=== PATIENT | male | born 1955 | race African-American/Black ===

== ENCOUNTER 2017-09-17 13:09 | Inpatient (IN) | payer SELFPAY ==
[2017-09-17] MEDS ORDERED: ONDANSETRON PF 4 MG/2 ML VIAL. IV (13:30)
[2017-09-17] MEDS: hydrALAZINE 20 MG/ML VIAL. IVP ×2 (13:51→17:15)
[2017-09-17] MEDS: NITROGLYCERIN OINT 1 GM PACKET. TP ×2 (14:00→20:51)
[2017-09-17] MEDS ORDERED: cefTRIAXone IV Push 1 GM VIAL. IVP (14:00)
[2017-09-17] MEDS ORDERED: LIDOCAINE 2% 20 ML VIAL. (14:37)
[2017-09-17] MEDS ORDERED: IODIXANOL 320 MG/ML 100 ML VIAL. (14:37)
[2017-09-17] MEDS ORDERED: fentaNYL PF VIAL 100 MCG/2 ML VIAL (14:51)
[2017-09-17] MEDS ORDERED: MIDAZOLAM HCL/PF 2 MG/2 ML VIAL. (14:51)
[2017-09-17] MEDS ORDERED: VERAPAMIL 5 MG/2 ML VIAL. (14:51)
[2017-09-17] MEDS ORDERED: HEPARIN for IV BOLUS 10,000 UNIT/10 ML VIAL. (14:51)
[2017-09-17] MEDS ORDERED: NITROGLYCERIN 200 MCG/2 ML SYRINGE FOR CATH/VASC LAB. (14:53)
[2017-09-17] MEDS ORDERED: CONTRAST GIVEN MC (15:15)
[2017-09-17] MEDS: MIDAZOLAM HCL/PF 2 MG/2 ML VIAL. IV (15:15)
[2017-09-17] MEDS: fentaNYL PF VIAL 100 MCG/2 ML VIAL IV (15:24)
[2017-09-17] MEDS: IODIXANOL 320 MG/ML 100 ML VIAL. IART (15:25)
[2017-09-17] MEDS: VERAPAMIL 5 MG/2 ML VIAL. IART (15:25)
[2017-09-17] MEDS: HEPARIN for IV BOLUS 10,000 UNIT/10 ML VIAL. IART (15:26)
[2017-09-17] MEDS: NITROGLYCERIN 200 MCG/2 ML SYRINGE FOR CATH/VASC LAB. IART (15:27)
[2017-09-17] MEDS: IPRATRPIUM/ALBUTEROL 0.5/2.5MG 3 ML NEBU. NEB ×2 (15:37→19:25)
[2017-09-17] MEDS: HYDROcodone/APAP 5/325MG 1 TAB TABLET PO (20:50)
[2017-09-17] MEDS: METOPROLOL TART IMMED RELEASE 25 MG TABLET. PO (20:50)
[2017-09-17] MEDS: ATORVASTATIN CALCIUM 40 MG TABLET. PO (20:50)
[2017-09-17] MEDS: cefTRIAXone IV Push 1 GM VIAL. IVP (20:50)
[2017-09-17] MEDS: LACTOBACILLUS RHAMNOSUS GG 1 CAPSULE. PO (20:50)
[2017-09-18] MEDS: hydrALAZINE 20 MG/ML VIAL. IVP (00:26)
[2017-09-18] MEDS: NITROGLYCERIN OINT 1 GM PACKET. TP ×2 (06:00→14:00)
[2017-09-18] MEDS: IPRATRPIUM/ALBUTEROL 0.5/2.5MG 3 ML NEBU. NEB ×3 (06:07→15:42)
[2017-09-18] MEDS: ASPIRIN CHEWABLE 81 MG TABLET. PO (09:04)
[2017-09-18] MEDS: CARVEDILOL 12.5 MG TABLET. PO ×2 (09:05→17:40)
[2017-09-18] MEDS: hydrALAZINE 25 MG TABLET PO (09:05)
[2017-09-18] MEDS: LACTOBACILLUS RHAMNOSUS GG 1 CAPSULE. PO (09:06)
== END 2017-09-18 19:07 | disposition home or self-care (01) | DRG 282 ==
LOC: 2 NORTH 13:09
PROC: 4A023N7 Measurement of Cardiac Sampling and Pressure, Left Heart, Percutaneous Approach (ICD-10-PCS; principal; 2017-09-17)
PROC: B2151ZZ Fluoroscopy of Left Heart using Low Osmolar Contrast (ICD-10-PCS; 2017-09-17)
PROC: B2111ZZ Fluoroscopy of Multiple Coronary Arteries using Low Osmolar Contrast (ICD-10-PCS; 2017-09-17)
DX: I21.4 Non-ST elevation (NSTEMI) myocardial infarction (principal); I11.9 Hypertensive heart disease without heart failure; E78.5 Hyperlipidemia, unspecified; Z82.49 Family history of ischemic heart disease and other diseases of the circulatory system; Z87.891 Personal history of nicotine dependence; Z83.3 Family history of diabetes mellitus; Z87.81 Personal history of (healed) traumatic fracture
CPT/HCPCS: 93458; 94640; 99152; C1769; C1892; J0360; J0696; J1644; J2250; J3010; J3490; J7620

== ENCOUNTER 2019-06-08 18:31 | Emergency (ER) | payer MEDICARE ==
[~2019-06-08] VITALS: Ht 165.1 cm; Wt 57.0 kg
[~2019-06-08 18:31] MED LIST: ASPI-630 PO; ATOR40TA59 PO; ATROPINE 1 MG/10 ML DISP.SYRINGE. ONE; CALCIUM CHLORIDE 1,000 MG/10 ML DISP.SYRIN ONE; CARV12.5 PO; CLOP75TA PO; EPINEPHrine SYRINGE 1 MG/10 ML SYRINGE ONE; FURO-69 PO; FURO20TA3 PO; HYDR-2868 PO; ISOS30TA4 PO
--- NOTE | 2019-06-08 19:10 | PHYS DOC ---
Past Medical History Past Medical History: CHF, DVT, Hypertension, ND, Other Additional Past Medical Histor: HEART ATTACK Past Surgical History: No Surgical History Additional Past Surgical Histo: bilat lower ext surgery, suprapubic catheter Alcohol Use: Occasionally Drug Use: None Adult General Chief Complaint Chief Complaint: ALTERED MENTAL STATUS HPI HPI Patient is a 64 year old Turkish Turkish male with history of CHF, CAD, ND, with B femoral popliteal performed at this past week with discharge home from earlier today who presents with initial presentation of decreased LOC with a GCS of 3 with respiratory distress. Patient notation improved with 15 L oxygen nonrebreather. EMS was unable to obtain an initial SPO2. GCS of 15 on ED arrival with moderate to severe respiratory distress. EMS unable to establish an IV. Patient agitated and swinging at staff requiring code clayton measures. [] Review of Systems Review of Systems Unable to obtain due to patient acuity All other systems were reviewed and found to be within normal limits, except as documented in this note. Current Medications Current Medications Current Medications Medications (Trade) Dose Ordered Sig/Mandie Start Time Stop Time Status Last Admin Dose Admin Ketamine HCl (Ketamine) 500 mg STK-MED ONCE 06/08/19 19:27 06/08/19 19:27 DC Norepinephrine Bitartrate 8 mg/ Dextrose 258 ml @ 11.03 mls/ hr CONT PRN 06/08/19 19:30 Propofol 50 ml @ 0 mls/hr 1X ONCE 06/08/19 19:15 06/08/19 19:16 DC Rocuronium [place] (Zemuron) 50 mg STK-MED ONCE 06/08/19 19:27 06/08/19 19:28 DC Sodium Bicarbonate 50 meq/Sodium Chloride 1,050 ml @ 100 mls/hr [id number] 06/08/19 20:00 06/08/19 20:41 100 MLS/HR Sodium Chloride 1,000 ml @ 1,000 mls/hr 1X ONCE 06/08/19 20:00 06/08/19 20:59 DC Sodium Chloride (NORMAL SALINE FLUSH for STERILE FIELD) 10 ml STK-MED ONCE 06/08/19 19:24 06/08/19 19:24 DC Allergies Allergies Allergies Coded Allergies Type Severity Reaction Last Updated Verified No Known Drug Allergies 09/17/17 No Physical Exam Physical Exam Constitutional: Moderate to severe respiratory distress, agitated and cooperative with staff. [] HENT: Normocephalic, atraumatic, bilateral external ears normal, oropharynx moist, nose normal. [] Eyes: PERRLA, EOMI, conjunctiva normal. [] Neck: Normal range of motion, no tenderness, supple, bilateral jugular venous distention [] Cardiovascular: Regular rate and rhythm, murmur present, trace peripheral edema, bifemoral and bi-popliteal cutdown surgical wounds. Benny in place, wounds clean, dry and intact. [] Lungs & Thorax: Patient's labored, diminished breath sounds bilaterally with coarse rales throughout lung del angel, speaks in 5-7 word sentences. [] Abdomen: Bowel sounds normal, soft, no tenderness,. [] Skin: Appropriate forethnicity.. [] Back: No tenderness. [] Extremities: Neative Homans sign. [] Neurologic: Alert and oriented, normal motor function, normal sensory function, no focal deficits noted. [] Psychologic: Affect, anxious. [] Current Patient Data Vital Signs Vital Signs Date Time Temp Pulse Resp B/P (MAP) Pulse Ox O2 Delivery O2 Flow Rate FiO2 06/08/19 19:00 92 Ventilator 06/08/19 18:37 78 28 15.0 Lab Values Laboratory Tests Test 06/08/19 19:30 06/08/19 20:00 White Blood Count 10.3 x10^3/uL (4.0-11.0) Red Blood Count 3.64 x10^6/uL (4.30-5.70) L Hemoglobin 10.3 g/dL (13.0-17.5) L Hematocrit 31.6 % (39.0-53.0) L Mean Corpuscular Volume 87 fL (79-100) Mean Corpuscular Hemoglobin 28 pg (25-35) Mean Corpuscular Hemoglobin Concent 33 g/dL (31-37) Red Cell Distribution Width 15.7 % (11.5-14.5) H Platelet Count 400 x10^3/uL (140-400) Neutrophils (%) (Auto) 74 % (31-73) H Lymphocytes (%) (Auto) 18 % (24-48) L Monocytes (%) (Auto) 5 % (0-9) Eosinophils (%) (Auto) 1 % (0-3) Basophils (%) (Auto) 1 % (0-3) Neutrophils # (Auto) 7.6 x10^3/uL (1.8-7.7) Lymphocytes # (Auto) 1.9 x10^3/uL (1.0-4.8) Monocytes # (Auto) 0.6 x10^3/uL (0.0-1.1) Eosinophils # (Auto) 0.1 x10^3/uL (0.0-0.7) Basophils # (Auto) 0.1 x10^3/uL (0.0-0.2) Segmented Neutrophils % 71 % (35-66) H Band Neutrophils % 2 % (0-9) Lymphocytes % 15 % (24-48) L Atypical Lymphocytes % (Manual) 5 % (0-0) H Monocytes % 5 % (0-10) Eosinophils % 1 % (0-5) Metamyelocytes % 1 % (0-0) H Platelet Estimate Increased (ADEQUATE) Polychromasia Slight Anisocytosis Slight Tear Drop Cells Occ Prothrombin Time 25.1 SEC (11.7-14.0) H Prothrombin Time INR 2.3 (0.8-1.1) H Activated Partial Thromboplast Time 41 SEC (24-38) H Sodium Level 141 mmol/L (136-145) Potassium Level 5.0 mmol/L (3.5-5.1) Chloride Level 101 mmol/L (98-107) Carbon Dioxide Level 27 mmol/L (21-32) Anion Gap 13 (6-14) Blood Urea Nitrogen 46 mg/dL (8-26) H Creatinine 2.3 mg/dL (0.7-1.3) H Estimated GFR (Cockcroft-Gault) 34.6 BUN/Creatinine Ratio 20 (6-20) Glucose Level 230 mg/dL (70-99) H Lactic Acid Level 7.0 mmol/L (0.4-2.0) *H Calcium Level 11.9 mg/dL (8.5-10.1) H Total Bilirubin 0.6 mg/dL (0.2-1.0) Aspartate Amino Transferase (AST) 22 U/L (15-37) Alanine Aminotransferase (ALT) 21 U/L (16-63) Alkaline Phosphatase 91 U/L (46-116) Troponin I Quantitative 0.422 ng/mL (0.000-0.055) MA-Hcx-Y-Type Natriuretic Peptide 08867 pg/mL (0-124) H Total Protein 5.8 g/dL (6.4-8.2) L Albumin 2.3 g/dL (3.4-5.0) L Albumin/Globulin Ratio 0.7 (1.0-1.7) L O2 Saturation 99 % (92-99) Arterial Blood pH 7.37 (7.35-7.45) Arterial Blood pH (Temp corrected) 7.38 Arterial Blood pCO2 at Patient Temp 42 mmHg (35-46) Arterial Blood pCO2 (Temp correct) 40 mmHg Arterial Blood pO2 at Patient Temp 542 mmHg (65-108) H Arterial Blood pO2 (Temp corrected) 533 mmHg Arterial Blood HCO3 24 mmol/L (21-28) Arterial Blood Base Excess -2 mmol/L (-3-3) FiO2 100 Laboratory Tests 06/08/19 19:30 Laboratory Tests 06/08/19 19:30 EKG EKG [EKG: reviewed] Radiology/Procedures Radiology/Procedures [CXR: Cardiac macular with cardiopulmonary vascular congestion, no tracheal tube and central line in good position] Course & Med Decision Making Course & Med Decision Making Pertinent Labs and Imaging studies reviewed. (See chart for details) [Patient with apparent respiratory failure secondary to CHF who presents in repiratory failure on NRB mask, agitated and uncooperative with staff placing patient and staff members at health/safety risk. Patient given ketamine to facilitate ED management and subsequent intubation for acute respiratory failure. Approximately 10 minutes post-intubation noted to be in sinus bradycardia. IV atropine given. Patient noted to be hypoxic with O2 sats in the 70s with loss of pulses while at beside with PEA on the monitor. Patient received 3 rounds of chest compressions, 2 amps of epinephrine and 1 amp or bicarb and calcium prior return of spontaneous circulation. A left subclavian central line was placed manually on first attempt in a left radial arterial line was established for presser support. Patient placed on Levophed drip, bicarb drip and bolused of 2 liters of normal saline. Vital signs stabilized on fluids, pressers and ventilator. Case reviewed with Dr. Saravia on-call for cardiology who recommends transfer to [facility] should patient require mechanical assist blood pressure support. Patient accepted by Dr. Joe at [facility]. Family members updated. Patient remains in critical condition with stable vital signs on Vent. Disposition [facility] Critical care time 95 mins. Curtis Disclaimer Dragon Disclaimer This electronic medical record was generated, in whole or in part, using a voice recognition dictation system. Departure Departure Impression: Primary Impression: Acute respiratory failure with hypoxia Additional Impressions: Systolic CHF Cardiac arrest Disposition: [address] [facility] Condition: CRITICAL Referrals: JAVIER BARRAZA MD (PCP) Problem Qualifiers PEPPER DE LEON DO Jun 08, 2019 19:10
[2019-06-08] MEDS ORDERED: PROPOFOL 50 ML IV ONE (19:15)
[2019-06-08] MEDS ORDERED: PROPOFOL 100 ML IV PRN (19:15)
[2019-06-08] MEDS ORDERED: 0.9 % SOD CHL for STERILE FIELD 10 ML DISP.SYRIN. ONE (19:24)
[2019-06-08] MEDS ORDERED: KETAMINE HCL 500 MG/10 ML VIAL. ONE (19:27)
[2019-06-08] MEDS ORDERED: ROCURONIUM 50 MG/5 ML VIAL. ONE (19:27)
[2019-06-08] MEDS ORDERED: NOREPINEPHRINE VIAL 8 MG in IV DEXTROSE 5% 250 ML IV PRN (19:30)
[2019-06-08 19:41] LABS: BASO # 0.1 x10^3/uL (0.0-0.2); BASO % 1 % (0-3); EOS # 0.1 x10^3/uL (0.0-0.7); EOS % 1 % (0-3); HEMATOCRIT 31.6 % (39.0-53.0); HEMOGLOBIN 10.3 g/dL (13.0-17.5); LYMPH # 1.9 x10^3/uL (1.0-4.8); LYMPH % 18 % (24-48); MEAN CORPUSCULAR HEMOGLOBIN 28 pg (25-35); MEAN CORPUSCULAR HGB CONC 33 g/dL (31-37); MEAN CORPUSCULAR VOLUME 87 fL (79-100); MONO # 0.6 x10^3/uL (0.0-1.1); MONO % 5 % (0-9); NEUT # 7.6 x10^3/uL (1.8-7.7); NEUT % 74 % (31-73); PLATELET COUNT 400 x10^3/uL (140-400); RED BLOOD COUNT 3.64 x10^6/uL (4.30-5.70); RED CELL DISTRIBUTION WIDTH 15.7 % (11.5-14.5); WHITE BLOOD COUNT 10.3 x10^3/uL (4.0-11.0)
[2019-06-08 19:50] LABS: CALCIUM 11.9 mg/dL (8.5-10.1); CREATININE 2.3 mg/dL (0.7-1.3); GFR 34.6
[2019-06-08 19:51] LABS: PROTHROMBIN TIME PATIENT 25.1 SEC (11.7-14.0)
[2019-06-08 19:56] LABS: ALBUMIN 2.3 g/dL (3.4-5.0); ALBUMIN/GLOBULIN RATIO 0.7 (1.0-1.7); TOTAL BILIRUBIN 0.6 mg/dL (0.2-1.0); TOTAL PROTEIN 5.8 g/dL (6.4-8.2)
[2019-06-08] MEDS ORDERED: IV NORMAL SALINE 1000ML BAG 1,000 ML IV ONE (20:00)
[2019-06-08] MEDS ORDERED: SODIUM BICARBONATE VIAL 50 MEQ in IV 1/2 NORMAL SALINE 1,000 ML IV SCH (20:00)
--- NOTE | 2019-06-08 20:03 | HP ---
ADMIT DATE: CHIEF COMPLAINT: Respiratory failure, agitation and mental status change. HISTORY OF PRESENT ILLNESS: The patient is a pleasant 64-year-old male who presented to the ER today, extremely agitated. Apparently, he developed shortness of breath. He was weak. Someone called the ambulance, so he was brought in. He is very combative. He has a lot of wounds on his lower extremities. Apparently, he was at and had vascular bypass and had a thrombectomy there as well. We were concerned he could have had a pulmonary embolism. He is very combative here in the ER, he is currently being examined in room ER 1 with the ER physician present. We are going to go ahead and intubate the patient. PAST MEDICAL HISTORY: Peripheral vascular disease, recent bypass surgery, lower extremity thrombectomies, diabetes and hypertension. ALLERGIES: None. FAMILY HISTORY: Diabetes. SOCIAL HISTORY: I think he lives alone. No drinking, smoking or drugs I know of. MEDICATIONS: Reviewed, please refer to the MRAD. REVIEW OF SYSTEMS: Unable to obtain. The patient is too combative and unresponsive. PHYSICAL EXAMINATION: GENERAL: He is combative. We are trying to sedate him. He is yelling. HEART: Distant S1, S2. LUNGS: Diminished. ABDOMEN: Soft. Decreased bowel sounds. EXTREMITIES: He has got multiple old incisions on his legs that are healing. There is lot of peggy. There are at least 2 large incisions on both lower extremities. HEENT: He has got a suprapubic Castillo in place. GENITOURINARY: Genitalia appeared normal in structure. HEENT: He has slight JVD. HEART: Tachy, S1, S2. ASSESSMENT AND PLAN: Severe mental status change with hypoxia and tachycardia in a middle-aged male who had recent vascular bypass and thrombectomy. We were concerned he could have had a pulmonary embolism. It is going to be difficult to assess this as the patient is too combative. We are going to go ahead and intubate. We will need to get basic labs and hopefully to get a CAT scan or V/Q scan and consult Pulmonary Medicine. We will try to get his home meds going, IV fluids and sedation with propofol if possible. PROGNOSIS: Extremely guarded at best. TOTAL TIME: 32 minutes. TREMAYNE RÍOS DO DR: YULI/brittaney JOB#: [id number] / [id number]
[2019-06-08 20:09] LABS: BASE EXCESS ABG -2 mmol/L (-3-3); CORRECTED PCO2 ABG 40 mmHg; CORRECTED PH ABG 7.38; CORRECTED PO2 ABG 533 mmHg; HCO3 ABG 24 mmol/L (21-28); SAT O2 ABG 99 % (92-99)
[2019-06-08 20:10] LABS: FIO2 ABG 100; PCO2 ABG 42 mmHg (35-46); PO2 ABG 542 mmHg (65-108)
[2019-06-08 20:12] LABS: % ATYL 5 % (0-0); % BANDS 2 % (0-9); % EOS 1 % (0-5); % METAS 1 % (0-0); % MONOS 5 % (0-10)
[2019-06-08 20:13] LABS: % LYMPHS 15 % (24-48); % SEGS 71 % (35-66)
--- NOTE | 2019-06-08 20:14 | RAD ---
CHEST AP ONLY Clinical Indication: Line placement, tube placement, shortness of breath Comparison: 05/16/2023 . Findings: Portable supine frontal view of the chest was obtained. Tracheal tube terminates approximately 2.6 in number from the gary. Enteric tube terminates at the left upper quadrant. Left subclavian catheter terminates overlying the superior cavoatrial junction. The cardiomediastinal silhouette is normal. Lungs are clear. There is no pneumothorax although evaluation may be limited with the patient supine for this exam. No pleural effusion is appreciated. No acute bone abnormality. IMPRESSION: No acute cardiopulmonary process. Left subclavian catheter and tubes in place. Electronically signed by: Julián Quevedo MD (06/08/2019 8:12 PM) [facility]
[2019-06-08 20:15] LABS: ANISOCYTOSIS SLIGHT; PLT ESTIMATE INCREASED (ADEQUATE)
[2019-06-08 20:16] LABS: POLYCHROMASIA SLIGHT; TEAR DROP CELLS OCC
[2019-06-08 21:40] VITALS: BP 127/67
[2019-06-08] MEDS ORDERED: MIDAZOLAM HCL/PF 5 MG/5 ML VIAL. ONE (21:50)
[2019-06-09] MEDS ORDERED: MIDAZOLAM HCL/PF 5 MG/5 ML VIAL. NS ONE (02:00)
[2019-06-09] MEDS ORDERED: ATROPINE 0.5 MG/5 ML DISP.SYRINGE. IV ONE (02:00)
[2019-06-09] MEDS ORDERED: ROCURONIUM 100 MG/10 ML VIAL. IV ONE (02:15)
[2019-06-09] MEDS ORDERED: KETAMINE HCL 500 MG/10 ML VIAL. IV ONE (02:15)
[2019-06-09] MEDS ORDERED: PROPOFOL 10 MG/ML (20ML) VIAL. IV ONE ×2 (02:45)
--- NOTE | 2019-06-09 07:07 | EKG ---
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
== END 2019-06-09 01:23 | disposition short-term general hospital (02) ==
LOC: ER 18:31 → UNDOADMIN 20:15 → 1 WEST ICU 20:15 → ER 06-09 01:23
DX: I11.0 Hypertensive heart disease with heart failure (principal); I46.9 Cardiac arrest, cause unspecified; I50.20 Unspecified systolic (congestive) heart failure; J96.01 Acute respiratory failure with hypoxia; I25.2 Old myocardial infarction; Z86.718 Personal history of other venous thrombosis and embolism; Z98.890 Other specified postprocedural states
CPT/HCPCS: 36415; 36600; 71045; 80053; 82805; 83605; 83880; 84484; 85007; 85025; 85610; 85730; 87040; 93005; 94002; 96361; 96365; 96368; 96375; 99291; 99292; J0171; J0461; J2250; J2704; J3490; J7030

== ENCOUNTER 2019-06-22 17:23 | Inpatient (IN) | payer MEDICARE, OTHER ==
[~2019-06-22] VITALS: Ht 167.6 cm; Wt 63.4 kg
[2019-06-22] VITALS (12 sets, daily range): BP systolic 81–136; BP diastolic 50–82
[~2019-06-22 17:23] MED LIST changes: -ATROPINE 1 MG/10 ML DISP.SYRINGE. ONE; -CALCIUM CHLORIDE 1,000 MG/10 ML DISP.SYRIN ONE; -EPINEPHrine SYRINGE 1 MG/10 ML SYRINGE ONE
--- NOTE | 2019-06-22 18:17 | PDOC1 ---
History and Physical Date of Admission Date of Admission DATE: 06/22/19 TIME: 18:14 Identification/Chief Complaint Chief Complaint SEEN IN ICU [place] [facility] 64 yo M w/ PMHx HTN, HLD c/o left-sided chest pressure associated with tingling and numbness of left arm and mild shortness of breath. iv nitroglycerin given in er He denied any orthopnea/PND, palpitations or syncope. Trop BNP 35861 JUN 01 . CXR with CARDIOMEGALY cardiology and nephrology in consultation 06/01 . LHC showed: Severe single-vessel coronary artery disease involving the left anterior descending artery/diagonal branch, proven physiologically significant based on IFR measurement 06/01 Successful PCI/drug eluting stent placement to the left anterior descending artery and balloon PTCA to the diagonal branch Renal US showed right renal atrophy and medical renal disease Past Medical History Past Medical History Past Medical History Cardiovascular: CAD, CHF, Hyperlipidemia Renal/: Chronic renal insuff Family History Family History: High Cholestrol, Hypertension Social History No ALCOHOL: none REMOTE HEAVY USE 5 YRS AGO Drugs: None STOPPED SMOKING 5 YRS AGO Lives: with Family Cardiovascular: CAD, CHF, Hyperlipidemia Musculoskeletal: Osteoarthritis Renal/: Chronic renal insuff, Chronic renal failure Family History Family History: High Cholestrol, Hypertension Social History Smoke: Quit ALCOHOL: other (QUIT 5 YRS AGO, ONCE HAD HEAVY USE) Drugs: None, Other ([place] [facility] [place]) Current Medications Current Medications Active Scripts Active Isosorbide Mononitrate Er (Isosorbide Mononitrate) 30 Mg Tab.er.24h 1 Tab PO DAILY 30 Days Furosemide 20 Mg Tablet 40 Mg PO DAILY 30 Days Coreg (Carvedilol) 12.5 Mg Tablet 12.5 Mg PO BIDWMEALS 30 Days Hydralazine Hcl 25 Mg Tablet 25 Mg PO BID 30 Days Clopidogrel (Clopidogrel Bisulfate) 75 Mg Tablet 75 Mg PO DAILYWBKFT 30 Days Reported Aspirin 81 Mg Tab.chew 81 Mg PO DAILY Atorvastatin Calcium 40 Mg Tablet 40 Mg PO HS Allergies Allergies: Coded Allergies: No Known Drug Allergies (Unverified , 09/17/17) ROS Review of System 14 PT ROS OTHERWISE NEG General: No: Chills, Night Sweats, Fatigue, Malaise, Appetite, Other PSYCHOLOGICAL ROS: No: Anxiety, Behavioral Disorder, Concentration difficultie, Decreased libido, Depression, Disorientation, Hallucinations, Hostility, Irritablity, Memory difficulties, Mood Swings, Obsessive thoughts, Physical a buse, Sexual abuse, Sleep disturbances, Suicidal ideation, Other Eyes: No Blurry vision, No Decreased vision, No Double vision, No Dry eyes, No Excessive tearing, No Eye Pain, No Itchy Eyes, No Loss of vision, No Photophobia, No Scotomata, No Uses contacts, No Uses glasses, No Other HEENT: No: Heacaches, Visual Changes, Hearing change, Nasal congestion, Nasal discharge, Oral lesions, Sinus pain, Sore Throat, Epistaxis, Sneezing, Snoring, Tinnitus, Vertigo, Vocal changes, Other ALLERGY AND IMMUNOLOGY: No: Hives, Insect Bite Sensitivity, Itchy/Watery Eyes, Nasal Congestion, Post Nasal Drip, Seasonal Allergies, Other Hematological and Lymphatic: No: Bleeding Problems, Blood Clots, Blood Transfusions, Brusing, Night Sweats, Pallor, Swollen Lymph Nodes, Other ENDOCRINE: No: Breast Changes, Galactorrhea, Hair Pattern Changes, Hot Flashes, Malaise/lethargy, Mood Swings, Palpitations, Polydipsia/polyuria, Skin Changes, Temperature Intolerance, Unexpected Weight Changes, Other Respiratory: YES: Shortness of breath, SOB with excertion Cardiovascular: yes Chest Pain Gastrointestinal: No Nausea, No Vomiting, No Abdominal Pain, No Diarrhea, No Constipation, No Melena, No Hematochezia, No Other Genitourinary: No Dysuria, No Frequency, No Incontinence, No Hematuria, No Retention, No Discharge, No Urgency, No Pain, No Flank Pain, No Other, No , No , No , No , No , No , No Musculoskeletal: No Gait Disturbance, No Joint Pain, No Joint Stiffness, No Joint Swelling, No Muscle Pain, No Muscular Weakness, No Pain In:, No Swelling In:, No Other Neurological: No Behavorial Changes, No Bowel/Bladder ControlChng, No Confusion, No Dizziness, No Gait Disturbance, No Headaches, No Impaired Coord/balance, No Memory Loss, No Numbness/Tingling, No Seizures, No Speech Problems, No Tremors, No Visual Changes, No Weakness, No Other Physical Exam Physical Exam Physical Exam General Appearance: no apparent distress Skin: warm Respiratory: decreased breath sounds Heart: S1S2 Abdomen: soft, bowel sounds present Neurology: alert, oriented, follow commands General: Alert, Oriented X3, Cooperative, mild distress HEENT: Atraumatic, EOMI, Mucous membr. moist/pink Lungs: Clear to auscultation, Normal air movement Heart: RRR Breasts: Not examined Abdomen: Normal bowel sounds, Soft, No tenderness Rectal Exam: not examined PELVIC: Examination not indicated Extremities: No cyanosis Neuro: Normal speech, Cranial nerves 3-12 NL Psych/Mental Status: Mental status NL, Mood NL Images Images APPROVED REPORT EXAM: Two-dimensional and M-mode echocardiogram with Doppler and color Doppler. Other Information Quality : Good INDICATION Cardiac Disease: CAD Non STEMI 2D DIMENSIONS RVDd 3.3 (2.9-3.5cm) Left Atrium(2D) 4.3 (1.6-4.0cm) IVSd 1.3 (0.7-1.1cm) Aortic Root(2D) 3.2 (2.0-3.7cm) LVDd 5.5 (3.9-5.9cm) LVOT Diameter 2.2 (1.8-2.4cm) PWd 1.4 (0.7-1.1cm) LVDs 4.9 (2.5-4.0cm) FS (%) 5.0 % SV 36.8 ml LVEF(%) 10.0 (>50%) Aortic Valve AoV Peak Fabien. 80.0cm/s AoV VTI 11.1cm AO Peak GR. 2.6mmHg LVOT Peak Fabien. 51.6cm/s AO Mean GR. 2mmHg ANGIE (VMAX) 2.38cm2 ANGIE (VTI) 2.10cm2 AI P 1/2 Time 704ms Tricuspid Valve TR P. Velocity 289cm/s RAP ESTIMATE 15mmHg TR Peak Gr. 33mmHg RVSP 48mmHg LEFT VENTRICLE The left ventricle is normal size. There is normal left ventricular wall thickness. Left ventricle systolic function is severely impaired. The Ejection Fraction is 10-15%. There is severe global hypokinesis of the left ventricle. RIGHT VENTRICLE The right ventricle is normal size. The right ventricular systolic function is normal. ATRIA The left atrium is mildly dilated. The right atrium size is normal. The interatrial septum is intact with no evidence for an atrial septal defect or patent foramen ovale as noted on 2-D or Doppler imaging. AORTIC VALVE The aortic valve is mildly thickened but opens well. Doppler and Color Flow revealed mild aortic regurgitation. There is no significant aortic valvular stenosis. MITRAL VALVE The mitral valve is calcified but opens well. Mitral annular calcification is mild. There is no evidence of mitral valve prolapse. There is no mitral valve stenosis. Doppler and Color-flow revealed mild mitral regurgitation. TRICUSPID VALVE The tricuspid valve is normal in structure and function. Doppler and Color Flow revealed mild tricuspid regurgitation. There is moderate pulmonary hypertension. The PA pressure was estimated at 48 mmHg. There is no tricuspid valve stenosis. PULMONIC VALVE The pulmonary valve is normal in structure and function. Doppler and Color Flow revealed mild pulmonic valvular regurgitation. There is no pulmonic valvular stenosis. GREAT VESSELS The aortic root is normal in size. The ascending aorta is normal in size. The IVC is dilated and collapses <50% with inspiration. PERICARDIAL EFFUSION There is no evidence of significant pericardial effusion. Critical Notification Critical Value: No <Conclusion> Left ventricle systolic function is severely impaired. The Ejection Fraction is 10-15%. Mild aortic regurgitation. Mild mitral regurgitation. Mild tricuspid regurgitation. The PA pressure was estimated at 48 mmHg. There is no evidence of significant pericardial effusion. Signed by : Kandace Barksdale, Electronically Approved : 05/19/2019 16:33:44 DICTATED and SIGNED BY: KANDACE BARKSDALE MD DATE: 05/19/19 1610 Technologist: MARIANNE DOS SANTOS RTR Nurse: PRADEEP MERLOS RN Procedure(s) performed: 1. Left heart catheterization, selective coronary angiography via right transradial approach 2. Successful PCI/drug eluting stent placement to the left anterior descending artery and balloon PTCA to the diagonal branch MODERATE SEDATION TIME: 65 MINUTES FLUORO TIME: 16.5 MIN DOSE: 89.9 GYCM2 CONTRAST: 165CC VISI INDICATION The indication(s) include : non-STEMI . CSHA Clinical Frailty Scale [facility] Clinical Frailty Scale: Moderately Frail Heart Failure Heart Failure: No PROCEDURE NARRATIVE After explaining the risks, benefits and alternative options, informed consent was obtained from patient. Patient was brought to the cardiac [facility] and right wrist was prepped and draped in the usual fashion after confirming a positive modified Domo's test. Arterial access was obtained in the right radial artery and a 6 Kazakh sheath was inserted. 6 Kazakh Micah catheter was used to perform selective angiography of the left and right coronary arteries. LVEDP and transaortic gradients remeasured. Left ventriculography was not performed due to elevated creatinine level. Since patient had angiographically borderline significant stenosis involving the left anterior descending artery, a decision was made to assess physiologic significance using Instant wave free ratio (IFR) measurement. The left main coronary artery was engaged with a 6 Kazakh XB 3.5 guide catheter and the stenosis in the midsegment of the LAD was crossed with Webydo. Verrata PressureWire. IFR measurement was made that came back physiologically significant at 0.83. FINDINGS 1. Hemodynamics: Left ventricular end-diastolic pressure of 23 mmHg consistent with acute on chronic diastolic heart failure. No pullback gradient across the aortic valve. 2. Coronary angiography: a. The left main coronary artery arose from the left sinus of Valsalva, gave rise to the left anterior descending and left circumflex arteries and did not show any significant stenosis. b. The left anterior descending artery showed 70% bifurcation stenosis involving the midsegment of LAD/diagonal branch. This was found to be physiologically significant based on IFR measurement of 0.83. c. The left circumflex artery was a large and dominant vessel that did not show any significant stenosis. d. The right coronary artery was a small and nondominant vessel arising from the right sinus of Valsalva that did not show any significant stenosis. INTERVENTION The left main coronary artery was engaged earlier for IFR measurement with 6 Kazakh XB 3.5 guide catheter and the stenosis in LAD was crossed with PressureWire as stated above. IFR measurement of LAD was significant at 0.83. This was dilated with a 3.0 x 15 mm Euphora balloon following which this was successfully treated with a 3.0 x 18 mm resolute Perry drug-eluting stent. Follow-up angiography showed plaque shift into the diagonal branch resulting in 90-95% stenosis. The stent struts were then crossed into the diagonal branch with a Palmap water guidewire. The struts and the proximal segment of the diagonal branch were then dilated with a 2.5 x 8 mm noncompliant NC trek balloon. Follow-up angiography showed resolution of the stenosis and LAD to 0% and diagonal branch to 30% with AZCH-3 distal flow. Patient tolerated the procedure well. Hemostasis was achieved using TR band. There were no immediate complications. ZACH Flow ZACH Flow (Pre-Intervention): ZACH-2 ZACH Flow (Post-Intervention): ZACH-3 Conclusion 1. Severe single-vessel coronary artery disease involving the left anterior descending artery/diagonal branch, proven physiologically significant based on IFR measurement 2. Successful PCI/drug eluting stent placement to the left anterior descending artery and balloon PTCA to the diagonal branch Recommendations 1. Aspirin 325 mg daily for one month followed by 81 mg daily 2. Plavix 75 mg daily for preferably one year 3. Cardiovascular risk factor modification Signed by : Kandace Barksdale, Electronically Approved : 05/18/2019 14:08:55 VTE Prophylaxis Ordered VTE Prophylaxis Devices: No VTE Pharmacological Prophylaxi: Yes Assessment/Plan Assessment/Plan IMPRESSION Mr Kay is a 64 yo M w/ PMHx HTN, HLD c/o left-sided chest pressure associated with tingling and numbness of left arm and mild shortness of breath. nitroglycerin DRIP RESTARTED He denied any orthopnea/PND, palpitations or syncope. Trop 0.[address] [facility] ER BNP 26713. CXR with cardiomegaly. Seen by cardiology and nephrology in consultation May . LHC showed Renal US showed right renal atrophy and medical renal disease ECHO 06/01 Left ventricle systolic function is severely impaired. The Ejection Fraction is 10-15%. Mild aortic regurgitation. Mild mitral regurgitation. Mild tricuspid regurgitation. The PA pressure was estimated at 48 mmHg. impression Acute UNSTABLE ANGINA //Left heart catheterization 05/18/19 - Successful PCI/drug eluting stent placement to the left anterior descending artery and balloon PTCA to the diagonal branch Hypertension - Hyperlipidemia - Statins ACUTE ON CHRONIC COMBINED SYSTOLIC AND DIASTOLIC HEART FAILURE - awaiting life- vest CKD Ischemic cardiomyopathy - on echo Left ventricle systolic function is severely impaired.The Ejection Fraction is 10-15%.Mild aortic regurgitation.Mild mitral regurgitation.Mild tricuspid regurgitation.The PA pressure was estimated at 48 mmHg.There is no evidence of significant pericardial effusion. UTI, RX PO AUGMENTIN 250MG BID 05/20 - no growth in urine, d/c HX NONCOMPLIANCE PULMONARY HYPERTENSION, MOD-SEVERE cardiology consulted DVT PROPHYLAXIS HOME MEDS DR CORLEY NOTIFIED BY RN IN ER TONIGHT ADMIT ICU BED NTG DRIP 34 MIN CC TIME JEYSON MARQUIS MD Jun 22, 2019 18:17
--- NOTE | 2019-06-22 18:39 | EKG ---
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
[2019-06-22] MEDS ORDERED: 0.9 % SODIUM CHLORIDE 10 ML DISP.SYRIN. IV PRN (19:00)
[2019-06-22] MEDS ORDERED: ONDANSETRON PF 4 MG/2 ML VIAL. IV PRN (19:00)
[2019-06-22] MEDS ORDERED: HYDROmorphone 2 MG/ML VIAL IV PRN (19:00)
[2019-06-22] MEDS ORDERED: BISACODYL 10 MG SUPP.RECT. PR PRN (19:00)
[2019-06-22] MEDS ORDERED: HYDROcodone/APAP 5/325MG 1 TAB TABLET PO PRN (19:00)
[2019-06-22] MEDS ORDERED: FLU VAX QS 2019-20 (36MOS+)/PF 0.5 ML SYRINGE. VAX IM ONE (20:00)
[2019-06-22] MEDS: hydrALAZINE 25 MG TABLET PO SCH (21:00)
[2019-06-22] MEDS: FAMOTIDINE 20 MG/2 ML VIAL IVP SCH (21:20)
[2019-06-22] MEDS: HEPARIN for SUB-Q USE 5,000 UNIT/ML VIAL. SQ SCH (21:21)
[2019-06-22] MEDS: ATORVASTATIN CALCIUM 40 MG TABLET. PO SCH (21:24)
[2019-06-22] MEDS: DOCUSATE SODIUM 100 MG CAPSULE. PO SCH (21:24)
--- NOTE | 2019-06-22 23:57 | NUR ---
patient admitted from [facility] with IV nitro running.
[2019-06-23] VITALS (13 sets, daily range): BP systolic 82–112; BP diastolic 48–75
[2019-06-23] MEDS ORDERED: NITROGLYCERIN PREMIX 250 ML IV PRN
[2019-06-23 04:32] LABS: BASO # 0.1 x10^3/uL (0.0-0.2); BASO % 2 % (0-3); EOS # 0.5 x10^3/uL (0.0-0.7); EOS % 8 % (0-3); HEMOGLOBIN 10.5 g/dL (13.0-17.5); LYMPH # 1.3 x10^3/uL (1.0-4.8); LYMPH % 19 % (24-48); MEAN CORPUSCULAR HEMOGLOBIN 28 pg (25-35); MEAN CORPUSCULAR HGB CONC 33 g/dL (31-37); MEAN CORPUSCULAR VOLUME 85 fL (79-100); MONO # 0.8 x10^3/uL (0.0-1.1); MONO % 12 % (0-9); NEUT # 3.8 x10^3/uL (1.8-7.7); NEUT % 58 % (31-73); PLATELET COUNT 537 x10^3/uL (140-400); RED BLOOD COUNT 3.78 x10^6/uL (4.30-5.70); RED CELL DISTRIBUTION WIDTH 16.5 % (11.5-14.5); WHITE BLOOD COUNT 6.5 x10^3/uL (4.0-11.0)
[2019-06-23 04:39] LABS: PROTHROMBIN TIME PATIENT 33.8 SEC (11.7-14.0)
[2019-06-23 04:49] LABS: ALBUMIN 2.5 g/dL (3.4-5.0); ALBUMIN/GLOBULIN RATIO 0.5 (1.0-1.7); CALCIUM 9.4 mg/dL (8.5-10.1); CREATININE 1.9 mg/dL (0.7-1.3); GFR 43.1; POTASSIUM 4.7 mmol/L (3.5-5.1); TOTAL BILIRUBIN 0.4 mg/dL (0.2-1.0); TOTAL PROTEIN 7.5 g/dL (6.4-8.2)
[2019-06-23] MEDS: CARVEDILOL 12.5 MG TABLET. PO SCH ×2 (08:00→16:06)
[2019-06-23] MEDS: DOCUSATE SODIUM 100 MG CAPSULE. PO SCH ×2 (09:00→21:00)
[2019-06-23] MEDS: hydrALAZINE 25 MG TABLET PO SCH ×2 (09:00→21:00)
[2019-06-23] MEDS: ISOSORBIDE MONONITRATE ER 30 MG TAB.ER.24H PO SCH (09:00)
--- NOTE | 2019-06-23 09:14 | PDOC2 ---
JULI MASSEY ADAPTIVE PHYSICAL EDUCATION SPECIALIST 06/23/19 0914: CARDIAC CONSULT DATE OF CONSULT Date of Consult DATE: 06/23/19 TIME: 09:12 REASON FOR CONSULT Reason for Consult: Chest pain, CAD REFERRING PHYSICIAN Referring Physician: Fullbright SOURCE Source: Chart review, Patient HISTORY OF PRESENT ILLNESS HISTORY OF PRESENT ILLNESS This is a pleasant 64 yo male admitted for complains of sharp left chest pain radiating to left arm. This has been occuring in the last 2 days. This is not quite the same as when he had his MT a month ago. No nausea, He does have some SOA but not as significant as beofre. He does not check his BP. He did have several things happening to which he was treated in [facility]. He had severe PAD with thrombus ending up with surgery on 05/31/2019 and recently had stroke. He has lifevest and is on triple therapy with ASA, plavix and coumadin. So far no focal neurosymptoms. His chest pain is better. He was in [facility] again on 06/08 and DCd on 06/14/2019.. PAST MEDICAL HISTORY Cardiovascular: CAD, CHF, HTN, Hyperlipidemia, Other (PAD) CENTRAL NERVOUS SYSTEM: CVA Heme/Onc: Anemia NOS Musculoskeletal: Osteoarthritis Renal/: Chronic renal insuff, UTI, Other (urinary retention; RASHAWN) Endocrine: No pertinent hx Dermatology: No pertinent hx PAST SURGICAL HISTORY Past Surgical History: Other (PCI PREET to LAD and PTCA to diagnoal; LE revascularization) FAMILY HISTORY Family History: Hypertension SOCIAL HISTORY Smoke: No ALCOHOL: none Drugs: None CURRENT MEDICATIONS CURRENT MEDICATIONS Current Medications Medications (Trade) Dose Ordered Sig/Mandie Route PRN Reason Start Time Stop Time Status Last Admin Dose Admin Atorvastatin Calcium (Lipitor) 40 mg HS PO 06/22/19 21:00 06/22/19 21:24 Famotidine (Pepcid Vial) 20 mg DAILY IVP 06/22/19 21:00 06/22/19 21:20 Heparin Sodium (Porcine) (Heparin Sodium) 5,000 unit Q12HR SQ 06/22/19 21:00 06/22/19 21:21 Docusate Sodium (Colace) 100 mg BID PO 06/22/19 21:00 06/22/19 21:24 ALLERGIES ALLERGIES: Coded Allergies: No Known Drug Allergies (Unverified , 5/8/18) ROS Review of System 14 point ROS evaluated with pertinent positives noted per HPI PHYSICAL EXAM General: Alert, Oriented X3, Cooperative, No acute distress HEENT: Atraumatic, Mucous membr. moist/pink Lungs: Clear to auscultation, Normal air movement Heart: Regular rate (SR), Other (3/6 systolic murmur to LLS border) Abdomen: Soft, No tenderness Extremities: No cyanosis, No edema Skin: No breakdown, Other (surgical incision to bilatera calf region intact well approximated with peggy. ) Neuro: Normal speech, Sensation intact Psych/Mental Status: Mental status NL, Mood NL MUSCULOSKELETAL: Osteoarthritic changes both hands VITALS/I&O VITALS/I&O: Vital Signs Date Time Temp Pulse Resp B/P (MAP) Pulse Ox O2 Delivery O2 Flow Rate FiO2 06/23/19 08:00 98.5 86 20 100/60 (73) 99 Room Air 98.5 I & O 06/22/19 06/22/19 06/23/19 15:00 23:00 07:00 Intake Total 15 ml Output Total 725 ml 355 ml Balance -725 ml -340 ml LABS Lab: Laboratory Tests Test 06/23/19 03:55 White Blood Count 6.5 x10^3/uL (4.0-11.0) Red Blood Count 3.78 x10^6/uL (4.30-5.70) L Hemoglobin 10.5 g/dL (13.0-17.5) L Hematocrit 32.0 % (39.0-53.0) L Mean Corpuscular Volume 85 fL (79-100) Mean Corpuscular Hemoglobin 28 pg (25-35) Mean Corpuscular Hemoglobin Concent 33 g/dL (31-37) Red Cell Distribution Width 16.5 % (11.5-14.5) H Platelet Count 537 x10^3/uL (140-400) H Neutrophils (%) (Auto) 58 % (31-73) Lymphocytes (%) (Auto) 19 % (24-48) L Monocytes (%) (Auto) 12 % (0-9) H Eosinophils (%) (Auto) 8 % (0-3) H Basophils (%) (Auto) 2 % (0-3) Neutrophils # (Auto) 3.8 x10^3/uL (1.8-7.7) Lymphocytes # (Auto) 1.3 x10^3/uL (1.0-4.8) Monocytes # (Auto) 0.8 x10^3/uL (0.0-1.1) Eosinophils # (Auto) 0.5 x10^3/uL (0.0-0.7) Basophils # (Auto) 0.1 x10^3/uL (0.0-0.2) Prothrombin Time 33.8 SEC (11.7-14.0) H Prothrombin Time INR 3.3 (0.8-1.1) H Activated Partial Thromboplast Time 100 SEC (24-38) H Sodium Level 138 mmol/L (136-145) Potassium Level 4.7 mmol/L (3.5-5.1) Chloride Level 102 mmol/L (98-107) Carbon Dioxide Level 23 mmol/L (21-32) Anion Gap 13 (6-14) Blood Urea Nitrogen 63 mg/dL (8-26) H Creatinine 1.9 mg/dL (0.7-1.3) H Estimated GFR (Cockcroft-Gault) 43.1 BUN/Creatinine Ratio 33 (6-20) H Glucose Level 91 mg/dL (70-99) Calcium Level 9.4 mg/dL (8.5-10.1) Total Bilirubin 0.4 mg/dL (0.2-1.0) Aspartate Amino Transferase (AST) 25 U/L (15-37) Alanine Aminotransferase (ALT) 22 U/L (16-63) Alkaline Phosphatase 115 U/L (46-116) Troponin I Quantitative 1.479 ng/mL (0.000-0.055) Total Protein 7.5 g/dL (6.4-8.2) Albumin 2.5 g/dL (3.4-5.0) L Albumin/Globulin Ratio 0.5 (1.0-1.7) L Laboratory Tests 06/23/19 03:55 Laboratory Tests 06/23/19 03:55 IMAGES IMAGES [facility] MRI head without contrast 06/10/2019 1. Areas of acute to early subacute infarct at the bilateral occipital lobes, bilateral frontal lobes, bilateral parietal, and posterior left temporal lobes as described. 2. Probable subacute medial right cerebellar and left middle frontal gyrus subacute infarcts. 3. Previous small old posterior right occipital and bilateral medial frontal infarcts. Additional old bilateral lacunar type infarcts involving the basal ganglia. 4. Mild to moderate supratentorial and pontine white matter disease, nonspecific though likely from chronic small vessel ischemia in a patient this age. 5. Susceptibility associated with the old right occipital infarct, most compatible with older hemorrhage. No definite acute hemorrhagic conversion identified. CT head noncontrast 06/12/2019 1. No acute intracranial hemorrhage or calvarial fracture. 2. Expected evolution of acute to early subacute appearing infarcts involving the bilateral parieto-occipital regions and posterior left temporal lobe. No evidence of hemorrhagic conversion. 3. Stable encephalomalacia within the bilateral medial frontal lobes and old bilateral basal ganglia infarcts. 4. Moderate nonspecific supratentorial and pontine white matter disease, likely secondary to chronic microvascular ischemic changes. Lower extremity Doppler arterial 06/09/2019 1. Patent axillary-bifemoral graft with decreased flow and mild systolic acceleration delay at the distal anastomotic sites with the superficial femoral arteries. 2. Near occlusive thrombus within the mid to distal right SFA. The popliteal artery likely fills via collaterals as there is reversed flow within the SFA distal to the thrombus. Severe popliteal and distal trifurcation artery arterial insufficiency in the right lower extremity. 3. Moderate to severe arterial insufficiency throughout the left SFA, popliteal artery and trifurcation arteries of the calf. 4. Reversed flow within the left common femoral artery. ECHOCARDIOGRAM ECHOCARDIOGRAM 06/09/2019 [facility] Normal left ventricular cavity size with moderate concentric left ventricular hypertrophy. Moderate reduction in left ventricular systolic function. LVEF approximately 30%. Regional wall motion abnormalities as described below. Mild diastolic dysfunction. No intracardiac mass or thrombus noted. Mildly dilated right ventricle with mild reduction in function. Aortic valve sclerosis without stenosis. ASSESSMENT/PLAN ASSESSMENT/PLAN 1. CP: mixed features. 2. CAD 3. ICM: recent EF at 30% Appears compensated 4. Coagulopathy: on coumadin INR at 3.3 5. HLP 6. MIld anemia with thrombocytosis 7. Recent CVA: noted via MRI at [facility] 06/10/2019 8. Severe PAD with extensive thrombus: prompting recent emergent right axillary artery bifemoral bypass, endarterectomy and thrombectomy and bilateral fasciotomy on 05/31/2019 9. Hx of recent LV thrombus: recent echo none noted 10. Hx of PEA arrest 11. FELIX on CKD 3 with known RASHAWN 12. NSTEMI: peaked trop at 1.4 with no acute changes to EKG by comparison. This is multifactorial with recent significant endothelial injury and likely component of vasopasm. Recommendations 1. Consult neurology in regards to recent stroke 2. On home ASA, plavix, coumadin. Consult vascular surgery in regards to recent surgery with current triple therapy. 3. Pt is a vasculopath with significant extra cardiac comorbid conditions. At the present time given his recent CVA, this precludes any further ischemic workup. Continue optimization via GDMT 4. Lasix therapy. nitrates if BP will tolerate. KANDACE BARKSDALE MD 06/24/19 0824: CARDIAC CONSULT ASSESSMENT/PLAN ASSESSMENT/PLAN Patient seen and examined 06/23/19. agree with COMMISSIONER OF OFFICIALS's assessment and plan. Chest pain with atypical features. Troponin elevation probably demand ischemia/type II CAD status clinically stable overall Recent events surrounding PAD and CVA at [facility] noted Continue diuresis for mild acute on chronic systolic heart failure Agree with conservative management for now regarding any further ischemic workup Thank you for your consultation JULI MASSEY APRN Jun 23, 2019 09:14 KANDACE BARKSDALE MD Jun 24, 2019 08:24
[2019-06-23] MEDS: CLOPIDOGREL BISULFATE 75 MG TABLET PO SCH (09:39)
[2019-06-23] MEDS: ASPIRIN CHEWABLE 81 MG TABLET. PO SCH (09:40)
[2019-06-23] MEDS: FUROSEMIDE 20 MG TABLET PO SCH (09:40)
[2019-06-23] MEDS: FAMOTIDINE 20 MG/2 ML VIAL IVP SCH (09:40)
[2019-06-23] MEDS: HEPARIN for SUB-Q USE 5,000 UNIT/ML VIAL. SQ SCH ×2 (09:41→21:18)
--- NOTE | 2019-06-23 10:04 | NUR ---
No paperwork present from [facility] transfer on 06/22. RN called Desiree Reynolds RN at [facility] ICU-- stated she would fax all information to [facility] ICU. Addendum: 06/23/19 at 1006 by ANDREW HUBER RN INCORRECT PATIENT
--- NOTE | 2019-06-23 10:22 | EKG ---
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 : 1955 Requested By: JULI MASSEY Order Number: [id number] Reading MD: Measurements Intervals [place] Rate: 86 P: 46 MT: 222 QRS: 20 QRSD: 92 T: 138 QT: 356 QTc: 429 Interpretive Statements SINUS RHYTHM PROLONGED MT INTERVAL ST & T ABNORMALITY, CONSIDER ANTEROLATERAL ISCHEMIA OR LEFT VENTRICULAR STRAIN T ABNORMALITY IN ANTERIOR LEADS INFEROLATERAL LEADS ABNORMAL ECG RI6.02 Compared to ECG 05/16/2019 04:05:35 First degree AV block now present Possible ischemia now present Possible ischemia now present T-wave abnormality now present Atrial abnormality no longer present Left-axis deviation no longer present Left ventricular hypertrophy no longer present Early repolarization no longer present
--- NOTE | 2019-06-23 12:02 | PDOC ---
[facility] [facility] PROGRESS NOTE Chief Complaint Chief Complaint Acute UNSTABLE ANGINA Hypertension Hyperlipidemia ACUTE ON CHRONIC COMBINED SYSTOLIC AND DIASTOLIC HEART FAILURE Ischemic cardiomyopathy HX NONCOMPLIANCE PULMONARY HYPERTENSION, MOD-SEVERE History of Present Illness History of Present Illness Patient was seen and examined in the ICU Records and chart reviewed cardiology notes reviewed discussed with RN Vitals/I&O Vitals/I&O: Vital Signs Date Time Temp Pulse Resp B/P (MAP) Pulse Ox O2 Delivery O2 Flow Rate FiO2 06/23/19 10:00 85 12 93/65 (74) 97 Room Air 06/23/19 08:00 98.5 98.5 I & O 06/22/19 06/22/19 06/23/19 15:00 23:00 07:00 Intake Total 15 ml Output Total 725 ml 355 ml Balance -725 ml -340 ml Physical Exam General: Alert, Oriented X3, Cooperative, mild distress Heart: Regular rate Lungs: Clear, Wheezing Abdomen: Normal bowel sounds, Soft, No tenderness Extremities: No cyanosis Skin: No significant lesion Labs Labs: Laboratory Tests Test 06/23/19 03:55 White Blood Count 6.5 x10^3/uL (4.0-11.0) Red Blood Count 3.78 x10^6/uL (4.30-5.70) Hemoglobin 10.5 g/dL (13.0-17.5) Hematocrit 32.0 % (39.0-53.0) Mean Corpuscular Volume 85 fL (79-100) Mean Corpuscular Hemoglobin 28 pg (25-35) Mean Corpuscular Hemoglobin Concent 33 g/dL (31-37) Red Cell Distribution Width 16.5 % (11.5-14.5) Platelet Count 537 x10^3/uL (140-400) Neutrophils (%) (Auto) 58 % (31-73) Lymphocytes (%) (Auto) 19 % (24-48) Monocytes (%) (Auto) 12 % (0-9) Eosinophils (%) (Auto) 8 % (0-3) Basophils (%) (Auto) 2 % (0-3) Neutrophils # (Auto) 3.8 x10^3/uL (1.8-7.7) Lymphocytes # (Auto) 1.3 x10^3/uL (1.0-4.8) Monocytes # (Auto) 0.8 x10^3/uL (0.0-1.1) Eosinophils # (Auto) 0.5 x10^3/uL (0.0-0.7) Basophils # (Auto) 0.1 x10^3/uL (0.0-0.2) Prothrombin Time 33.8 SEC (11.7-14.0) Prothromb Time International Ratio 3.3 (0.8-1.1) Activated Partial Thromboplast Time 100 SEC (24-38) Sodium Level 138 mmol/L (136-145) Potassium Level 4.7 mmol/L (3.5-5.1) Chloride Level 102 mmol/L (98-107) Carbon Dioxide Level 23 mmol/L (21-32) Anion Gap 13 (6-14) Blood Urea Nitrogen 63 mg/dL (8-26) Creatinine 1.9 mg/dL (0.7-1.3) Estimated GFR (Cockcroft-Gault) 43.1 BUN/Creatinine Ratio 33 (6-20) Glucose Level 91 mg/dL (70-99) Calcium Level 9.4 mg/dL (8.5-10.1) Total Bilirubin 0.4 mg/dL (0.2-1.0) Aspartate Amino Transf (AST/SGOT) 25 U/L (15-37) Alanine Aminotransferase (ALT/SGPT) 22 U/L (16-63) Alkaline Phosphatase 115 U/L (46-116) Troponin I Quantitative 1.479 ng/mL (0.000-0.055) Total Protein 7.5 g/dL (6.4-8.2) Albumin 2.5 g/dL (3.4-5.0) Albumin/Globulin Ratio 0.5 (1.0-1.7) Review of Systems Review of Systems: Respiratory: Denies hemoptysis, complains of SOB Cardiac: denies palpitations or syncope Assessment and Plan Assessmemt and Plan Assessment: Acute UNSTABLE ANGINA Hypertension Hyperlipidemia ACUTE ON CHRONIC COMBINED SYSTOLIC AND DIASTOLIC HEART FAILURE Ischemic cardiomyopathy HX NONCOMPLIANCE PULMONARY HYPERTENSION, MOD-SEVERE Plan: cardiology consulted Monitor INR Cardiac monitoring Continue current meds Monitor troponin DVT PROPHYLAXIS HOME MEDS Comment Review of Relevant I have reviewed the following items dunia (where applicable) has been applied. Medications: Current Medications Medications (Trade) Dose Ordered Sig/Mandie Route PRN Reason Start Time Stop Time Status Last Admin Dose Admin Aspirin (Children'S Aspirin) 81 mg DAILY PO 06/23/19 09:00 06/23/19 09:40 Atorvastatin Calcium (Lipitor) 40 mg HS PO 06/22/19 21:00 06/22/19 21:24 Clopidogrel Bisulfate (Plavix) 75 mg DAILYWBKFT PO 06/23/19 08:00 06/23/19 09:39 Furosemide (Lasix) 40 mg DAILY PO 06/23/19 09:00 06/23/19 09:40 Famotidine (Pepcid Vial) 20 mg DAILY IVP 06/22/19 21:00 06/23/19 09:40 Heparin Sodium (Porcine) (Heparin Sodium) 5,000 unit Q12HR SQ 06/22/19 21:00 06/23/19 09:41 Docusate Sodium (Colace) 100 mg BID PO 06/22/19 21:00 06/22/19 21:24 TREMAYNE RÍOS III DO Jun 23, 2019 12:02
--- NOTE | 2019-06-23 15:42 | NUR ---
SS following for discharge planning. SS reviewed pt chart. Pt is from home and is currently on room air. SS will continue to follow for discharge planning.
[2019-06-23] MEDS: ATORVASTATIN CALCIUM 40 MG TABLET. PO SCH (21:14)
[2019-06-24] VITALS (10 sets, daily range): BP systolic 90–128; BP diastolic 53–73
[2019-06-24] MEDS: CLOPIDOGREL BISULFATE 75 MG TABLET PO SCH (08:23)
--- NOTE | 2019-06-24 08:23 | PDOC ---
Provider Note Provider Note Vascular S: Patient seen and examined in room. Dr. Feliciano present for examination. Currently patient is with complaints. O: Awake and alert Vital signs stable, afebrile Right axillary incision healing Abdomen: soft, nondistended, nontender, suprapubic catheter in place. BLE: Bilateral femoral incisions healed, no swelling or hematoma. Bilateral calf incisions with peggy in place, calves soft, feet are warm, no lower extremity swelling noted. Doppler signal present bilateral dorsalis pedis and posterior tibial arteries. A/P: Patient is status post axillary bifemoral bypass along with bilateral lower extremity fasciotomies on 05/31/2019 at . Patient has good perfusion to bilateral lower extremities and is healing nicely. Patient will need full anticoagulation for bypass maintenance. INR 3.3, resume Warfarin when ok with Cardiology and IM. Rooke boots Staple removal BLE Will sign off, patient to follow up with Dr. Feliciano in one month. LUCIA LOWRY APRN Jun 24, 2019 08:23
[2019-06-24] MEDS: ASPIRIN CHEWABLE 81 MG TABLET. PO SCH (08:24)
[2019-06-24] MEDS: FAMOTIDINE 20 MG/2 ML VIAL IVP SCH (08:24)
[2019-06-24] MEDS: HEPARIN for SUB-Q USE 5,000 UNIT/ML VIAL. SQ SCH (08:36)
[2019-06-24] MEDS: DOCUSATE SODIUM 100 MG CAPSULE. PO SCH ×2 (09:00→21:17)
[2019-06-24] MEDS: ISOSORBIDE MONONITRATE ER 30 MG TAB.ER.24H PO SCH (09:00)
[2019-06-24] MEDS: FUROSEMIDE 20 MG TABLET PO SCH (09:00)
[2019-06-24] MEDS: hydrALAZINE 25 MG TABLET PO SCH ×2 (09:00→21:00)
--- NOTE | 2019-06-24 12:20 | NUR ---
Bilateral posterior tibial & dorsalis pedis easily heard on doppler. Benny removed bilaterally from calves & Rooke boots placed on patient. Addendum: 06/24/19 at 1222 by MADDIE PIPER RN Incision sites were also cleaned & steri strips applied.
--- NOTE | 2019-06-24 12:35 | PDOC2 ---
NEUROLOGY CONSULT Date of Admission Date of Admission DATE: 06/24/19 TIME: 12:28 Reason for Consult Reason for Consult: Abnormal head CT Referring Physician Referring Physician: Mr. Matute Source Source: Chart review, Patient History of Present Illness History of Present Illness The patient is a 64-year-old right-handed male admitted for myocardial infarction. He underwent a stent placement yesterday. He was at in May and had fem-pop bypass there. I can find no records from , but there is a CD from the [place] with a CT of the head from 05/22/19 showing small vessel ischemic monica nge that no acute infarct. I do not find any reports from either location. I discussed with the patient any type of stroke symptoms such as focal numbness, weakness, dysarthria, dysphagia, diplopia, sudden cognitive change, and he denies any symptom of stroke. There is no history of seizure or head injury. Past Medical History Cardiovascular: CAD, CHF, HTN, [place], Other (Peripheral vascular disease, deep venous spondylosis) Pulmonary: Pneumonia Past Surgical History Past Surgical History: Other ( cardiac catheterization, bilateral fem pop bypass) Family History Family History: CAD Social History Social History Single, no alcohol or tobacco Current Medications Current Medications Current Medications Influenza Virus Vaccine Quadrival (Afluria Quad 2019-20 (3yr Up) Syringe) 0.5 ml ONCE ONCE VAX IM ; Start 06/22/19 at 20:00; Stop 06/22/19 at 20:01; Status DC Aspirin (Children'S Aspirin) 81 mg DAILY PO Last administered on 06/24/19at 08:24; Start 06/23/19 at 09:00 Atorvastatin Calcium (Lipitor) 40 mg HS PO Last administered on 06/23/19at 21:14; Start 06/22/19 at 21:00 Carvedilol (Coreg) 12.5 mg BIDWMEALS PO ; Start 06/23/19 at 08:00 Clopidogrel Bisulfate (Plavix) 75 mg DAILYWBKFT PO Last administered on 06/24/19at 08:23; Start 06/23/19 at 08:00 Furosemide (Lasix) 40 mg DAILY PO Last administered on 06/23/19at 09:40; Start 06/23/19 at 09:00 Hydralazine HCl (Apresoline) 25 mg BID PO ; Start 2/10/20 at 21:00 Isosorbide Mononitrate (Imdur) 30 mg DAILY PO ; Start 06/23/19 at 09:00 Lorazepam (Ativan Inj) 0.5 mg PRN Q6HRS PRN IV ANXIETY / AGITATION; Start 06/22/19 at 19:00 Ondansetron HCl (Zofran) 4 mg PRN Q6HRS PRN IV NAUSEA/VOMITING; Start 06/22/19 at 19:00 Famotidine (Pepcid Vial) 20 mg DAILY IVP Last administered on 06/24/19at 08:24; Start 06/22/19 at 21:00 Heparin Sodium (Porcine) (Heparin Sodium) 5,000 unit Q12HR SQ Last administered on 06/24/19at 08:36; Start 06/22/19 at 21:00 Sodium Chloride (Normal Saline Flush) 3 ml QSHIFT PRN IV AFTER MEDS AND BLOOD DRAWS; Start 06/22/19 at 19:00 Acetaminophen/ Hydrocodone Bitart (Lortab 5/325) 1 tab PRN Q4HRS PRN PO MILD PAIN 1-3; Start 06/22/19 at 19:00 Hydromorphone HCl (Dilaudid) 0.4 mg PRN Q1HR PRN IV PAIN; Start 06/22/19 at 19:00 Docusate Sodium (Colace) 100 mg BID PO Last administered on 06/22/19at 21:24; Start 06/22/19 at 21:00 Bisacodyl (Dulcolax Supp) 10 mg PRN DAILY PRN [place] CONSTIPATION; Start 06/22/19 at 19:00 Nitroglycerin/ Dextrose 250 ml @ 1.5 mls/hr CONT PRN IV SEE I/O RECORD; Start 06/23/19 at 00:00 Active Scripts Active Isosorbide Mononitrate Er (Isosorbide Mononitrate) 30 Mg Tab.er.24h 1 Tab PO DAILY 30 Days Furosemide 20 Mg Tablet 40 Mg PO DAILY 30 Days Coreg (Carvedilol) 12.5 Mg Tablet 12.5 Mg PO BIDWMEALS 30 Days Hydralazine Hcl 25 Mg Tablet 25 Mg PO BID 30 Days Clopidogrel (Clopidogrel Bisulfate) 75 Mg Tablet 75 Mg PO DAILYWBKFT 30 Days Reported Aspirin 81 Mg Tab.chew 81 Mg PO DAILY Atorvastatin Calcium 40 Mg Tablet 40 Mg PO HS Allergies Allergies: Coded Allergies: No Known Drug Allergies (Unverified , 09/17/17) ROS Review of System Positive for chest pain. Negative for fever, chills, weight loss, shortness of breath, indigestion, hematochezia, melena, and dysuria. Full 14-point review of systems is negative. Physical Exam Physical Examination General: Well-developed, well-nourished black male in no acute distress HEENT: Normocephalic andatraumatic. Temporal arteriespulsatile and nontender. Neck: Supple without bruit, no meningismus Musculoskeletal: Stability:see neurologic. Gait exam:see neurologic. Tone:see neurologic.Strength:see neurologic. Neurological: Mental Status:intact, orientation, memory, attention span/concentration, language, fund of knowledge normal. Cranial Nerves:Pupils equal and reactive to light, extraocular movements areintact, visual del angel are full to confrontation. Facial sensation is normal. There is no facial asymmetry. Vestibulo-ocular reflex is intact. Palate elevates and tongue protrudes in midline. All other cranial related problems are negative except as mentioned before.Reflexes:2+ and symmetric with flexor plantar responses. Motor:5/5 strength with normal tone and bulk. Coordination:Finger-nose finger and swer-da-xiov testing are normal. Rapid alternating movements and fine finger movements are intact. Gait: not tested. Sensory:Normal pinprick, vibration, light touch, proprioception. Vitals VITALS Vital Signs Date Time Temp Pulse Resp B/P (MAP) Pulse Ox O2 Delivery O2 Flow Rate FiO2 06/24/19 11:00 98.1 92 21 128/71 (90) 99 Room Air 98.1 Labs Labs Laboratory Tests Test 06/23/19 03:55 06/23/19 11:35 White Blood Count 6.5 x10^3/uL (4.0-11.0) Red Blood Count 3.78 x10^6/uL (4.30-5.70) Hemoglobin 10.5 g/dL (13.0-17.5) Hematocrit 32.0 % (39.0-53.0) Mean Corpuscular Volume 85 fL (79-100) Mean Corpuscular Hemoglobin 28 pg (25-35) Mean Corpuscular Hemoglobin Concent 33 g/dL (31-37) Red Cell Distribution Width 16.5 % (11.5-14.5) Platelet Count 537 x10^3/uL (140-400) Neutrophils (%) (Auto) 58 % (31-73) Lymphocytes (%) (Auto) 19 % (24-48) Monocytes (%) (Auto) 12 % (0-9) Eosinophils (%) (Auto) 8 % (0-3) Basophils (%) (Auto) 2 % (0-3) Neutrophils # (Auto) 3.8 x10^3/uL (1.8-7.7) Lymphocytes # (Auto) 1.3 x10^3/uL (1.0-4.8) Monocytes # (Auto) 0.8 x10^3/uL (0.0-1.1) Eosinophils # (Auto) 0.5 x10^3/uL (0.0-0.7) Basophils # (Auto) 0.1 x10^3/uL (0.0-0.2) Prothrombin Time 33.8 SEC (11.7-14.0) Prothromb Time International Ratio 3.3 (0.8-1.1) Activated Partial Thromboplast Time 100 SEC (24-38) Sodium Level 138 mmol/L (136-145) Potassium Level 4.7 mmol/L (3.5-5.1) Chloride Level 102 mmol/L (98-107) Carbon Dioxide Level 23 mmol/L (21-32) Anion Gap 13 (6-14) Blood Urea Nitrogen 63 mg/dL (8-26) Creatinine 1.9 mg/dL (0.7-1.3) Estimated GFR (Cockcroft-Gault) 43.1 BUN/Creatinine Ratio 33 (6-20) Glucose Level 91 mg/dL (70-99) Calcium Level 9.4 mg/dL (8.5-10.1) Total Bilirubin 0.4 mg/dL (0.2-1.0) Aspartate Amino Transf (AST/SGOT) 25 U/L (15-37) Alanine Aminotransferase (ALT/SGPT) 22 U/L (16-63) Alkaline Phosphatase 115 U/L (46-116) Troponin I Quantitative 1.479 ng/mL (0.000-0.055) 0.984 ng/mL (0.000-0.055) Total Protein 7.5 g/dL (6.4-8.2) Albumin 2.5 g/dL (3.4-5.0) Albumin/Globulin Ratio 0.5 (1.0-1.7) Assessment/Plan Assessment/Plan Impression: Silent cerebrovascular disease, no evidence of clinical stroke. Recommendations: Reasonable to check carotid Doppler studies given his vascular status Continue aspirin, clopidogrel, statin Thank you for letting me help with the patient's care. NORMA ESPINAL MD Jun 24, 2019 12:35
--- NOTE | 2019-06-24 14:10 | PDOC ---
[facility] [facility] PROGRESS NOTE Chief Complaint Chief Complaint Acute UNSTABLE ANGINA Hypertension Hyperlipidemia ACUTE ON CHRONIC COMBINED SYSTOLIC AND DIASTOLIC HEART FAILURE Ischemic cardiomyopathy HX NONCOMPLIANCE PULMONARY HYPERTENSION, MOD-SEVERE History of Present Illness History of Present Illness Patient was seen and examined in the ICU Records and chart reviewed spoke with Dr. Feliciano (cardiology) vascular consult reviewed discussed with RN Vitals/I&O Vitals/I&O: Vital Signs Date Time Temp Pulse Resp B/P (MAP) Pulse Ox O2 Delivery O2 Flow Rate FiO2 06/24/19 12:00 92 92/53 (66) Room Air 06/24/19 11:00 98.1 21 99 98.1 I & O 06/23/19 06/23/19 06/24/19 15:00 23:00 07:00 Intake Total 1000 ml 420 ml 270 ml Output Total 280 ml 680 ml 300 ml Balance 720 ml -260 ml -30 ml Physical Exam General: Alert, Oriented X3, Cooperative, No acute distress Heart: Regular rate (SR), Other (3/6 systolic murmur to LLS border) Lungs: Clear, Wheezing Abdomen: Soft, No tenderness Extremities: No cyanosis, No edema Skin: No breakdown, Other (surgical incision to bilatera calf region intact well approximated with peggy. Surgical incision around the right clavicle) Assessment and Plan Assessmemt and Plan 06/24/2019 Assessment: Acute UNSTABLE ANGINA Hypertension Hyperlipidemia ACUTE ON CHRONIC COMBINED SYSTOLIC AND DIASTOLIC HEART FAILURE Ischemic cardiomyopathy HX NONCOMPLIANCE PULMONARY HYPERTENSION, MOD-SEVERE Plan: ICU MONITORING WAIT FOR CARDIOLOGY ASSESSMENT WAIT FOR CAROTID STUDY RESULTS DVT PROPHYLAXIS HOME MEDS Comment Review of Relevant I have reviewed the following items dunia (where applicable) has been applied. TREMAYNE RÍOS III, DO Jun 24, 2019 14:10
[2019-06-24 14:21] LABS: PROTHROMBIN TIME PATIENT 23.3 SEC (11.7-14.0)
--- NOTE | 2019-06-24 14:21 | PDOC ---
JULI MASSEY [employer] 06/24/19 1421: CARDIO Progress Notes Date and Time Date of Service 06/24/2019 Time of Evaluation 1350 Subjective Subjective: No Chest Pain, No shortness of breath, No Palpitations Vitals Vitals Vital Signs Date Time Temp Pulse Resp B/P (MAP) Pulse Ox O2 Delivery O2 Flow Rate FiO2 06/24/19 12:00 92 92/53 (66) Room Air 06/24/19 11:00 98.1 21 99 98.1 Weight Weight [ ] Input and Output Intake and Output Intake and Output 06/24/19 07:00 Intake Total 1690 ml Output Total 1260 ml Balance 430 ml Intake Oral 1690 ml Output Urine Total 1260 ml Physical Exam HEENT: Neck Supple W Full Motion Chest: Symmetric LUNGS: Clear to Auscultation Heart: S1S2, RRR (SR no significant ectopies) Abdomen: Soft N/T Extremities: No Calf Tenderness Neurology: alert, oriented, follow commands Assessment Assessment 1. CP: mixed features. No further pain overnight 2. CAD: recent stent to LAD with PTCA to Diagonal 05/18/2019 3. ICM: recent EF at 30% improved from 15%. Appears compensated 4. Coagulopathy: on coumadin INR at 3.3 5. HLP 6. MIld anemia with thrombocytosis 7. Recent CVA: noted via MRI at [facility] 06/10/2019. Neurology following 8. Severe PAD with extensive thrombus: prompting recent emergent right axillary artery bifemoral bypass, endarterectomy and thrombectomy and bilateral fasciotom y on 05/31/2019 9. Hx of recent LV thrombus: recent echo none noted 10. Hx of PEA arrest 11. FELIX on CKD 3 with known RASHAWN 12. NSTEMI: peaked trop at 1.4 with no acute changes to EKG by comparison. This is multifactorial with recent significant endothelial injury and likely component of vasopasm. Recommendations 1. Discussed with neurology, ok to resume. ASA, plavix, coumadin, 2. Pt is a vasculopath with significant extra cardiac comorbid conditions. Continue optimization via GDMT 3. Lasix therapy. nitrates if BP will tolerate. Continue hydralazine and will lower dose both hydralazine and coreg. No ACEi/ARB with his renal function. BMP and INR today. 4. Continue lifevest 5. Follow up in office in 4 weeks. 2L FR and daily wt. PASNOORI,KANDACE R MD 06/24/192027: CARDIO Progress Notes Assessment Assessment Patient seen and examined. agree with [employer]'s assessment and plan. Troponin elevation probably demand ischemia/type II CAD status clinically stable overall Recent events surrounding PAD and CVA at [facility] noted Acute on chronic systolic heart failure better compensated with diuresis Continue triple therapy and follow up with our office as scheduled JULI MASSEY APRN Jun 24, 2019 14:21 KANDACE BARKSDALE MD Jun 24, 2019 20:28
[2019-06-24 14:31] LABS: CALCIUM 9.3 mg/dL (8.5-10.1); CREATININE 1.8 mg/dL (0.7-1.3); GFR 45.9; POTASSIUM 4.1 mmol/L (3.5-5.1)
--- NOTE | 2019-06-24 15:29 | RAD ---
Clinical indications: Silent strokes. Duplex sonography of the cervical portion of both carotid arteries was performed including color flow imaging and spectral waveform analysis with flow velocity measurement and clayton scale evaluation. Right side: Peak systolic flow velocity of the CCA is 68 cm/sec. Peak systolic flow velocity of the ICA is 109 cm/sec. Thus, the ICA/CCA ratio is 1.6. Peak end diastolic flow velocity of the ICA is 36 cm/sec. The peak systolic velocity of the ECA is 81 cm/sec. Left side: Peak systolic flow velocity of the CCA is 103 cm/sec. Peak systolic flow velocity of the ICA is 102 cm/sec. Thus, the ICA/CCA ratio is approximately 1.0. Peak end diastolic flow velocity of the ICA is 33 cm/sec. Peak systolic flow velocity of the ECA is 79 cm/sec. There is mild plaque formation within the carotid bulbs bilaterally which is less than 50 percent.. There is mild plaque formation within the proximal right ICA which is less than 50 percent. Antegrade vertebral flow is seen bilaterally. The measurements were made using the NASCET criteria. Impression: Mild plaque formation is seen within the carotid bifurcations bilaterally. Electronically signed by: Flex Villela MD (06/24/2019 3:26 PM) [facility]
--- NOTE | 2019-06-24 15:37 | NUR ---
Pharmacy Warfarin Dosing Note S:Pharmacy consulted to assist with anticoagulation therapy with target INR: 2 -3 O:DIOGO MADRIGAL is a 64 year old M with DVT LABS: Last INR: 2.1 Last HGB: 10.5 Last HCT: 32 Last PLT: 537 Last dose of Hold given on at Previous Regimen: 1.5mg daily Vitamin K given: N A:INR of 2.1 is within desired range. Target range for this patient is: 2 -3 P: Warfarin dose: 1 mg Today at 1600 Bridge Therapy: None Next INR due tomorrow Pharmacy anticoagulation service will continue to follow. Komal Gould RPH, 06/24/19 [id number]
[2019-06-24] MEDS ORDERED: WARFARIN 1 MG TABLET. PO ONE (16:00)
[2019-06-24] MEDS: CARVEDILOL 3.125 MG TABLET. PO SCH (17:56)
--- NOTE | 2019-06-24 18:47 | NUR ---
Hospital follow up with cardiology appt set up for . 07/23/19 at 9:00am with Dr. Soliz.
[2019-06-24] MEDS: ATORVASTATIN CALCIUM 40 MG TABLET. PO SCH (21:18)
[2019-06-25] VITALS (14 sets, daily range): BP systolic 64–126; BP diastolic 45–72
[2019-06-25 06:20] LABS: PROTHROMBIN TIME PATIENT 18.7 SEC (11.7-14.0)
[2019-06-25] MEDS: CLOPIDOGREL BISULFATE 75 MG TABLET PO SCH (08:27)
[2019-06-25] MEDS: hydrALAZINE 25 MG TABLET PO SCH (08:27)
[2019-06-25] MEDS: ASPIRIN CHEWABLE 81 MG TABLET. PO SCH (08:27)
[2019-06-25] MEDS: DOCUSATE SODIUM 100 MG CAPSULE. PO SCH ×2 (08:27→20:58)
[2019-06-25] MEDS: FUROSEMIDE 20 MG TABLET PO SCH (08:27)
[2019-06-25] MEDS: CARVEDILOL 3.125 MG TABLET. PO SCH ×2 (08:27→17:00)
[2019-06-25] MEDS: FAMOTIDINE 20 MG/2 ML VIAL IVP SCH (08:28)
[2019-06-25] MEDS: ISOSORBIDE MONONITRATE ER 30 MG TAB.ER.24H PO SCH (09:44)
--- NOTE | 2019-06-25 10:08 | NUR ---
Pharmacy Warfarin Dosing Note S: Pharmacy consulted to assist with anticoagulation therapy O: DIOGO MADRIGAL is a 64 year old M with DVT/PE LABS: Last INR: 1.6 Last HGB: 10.5 Last HCT: 32 Last PLT: 537 Last dose of 1 mg given on 06/24/19 at 1618 Vitamin K given: N A:INR of 1.6 is below desired range. Target range for this patient is: 2 -3 P: Warfarin dose: 2 mg Today at 1600 Bridge Therapy: None Next INR due tomorrow Pharmacy anticoagulation service will continue to follow. Komal Gould Mirna, 06/25/19 1007
--- NOTE | 2019-06-25 10:13 | PDOC ---
PROGRESS NOTES Assessment Reviewed Mr. Matute's summary of [facility] records, see below, he did have subacute infarcts of bilateral occipital lobes, bilateral frontal lobes, bilateral parietal, and posterior left temporal lobes, subacute medial right cerebellar and left middle frontal gyrus infarcts old posterior right occipital (with posible old hemorrhage) and bilateral medial frontal infarcts, basal ganglia, infarcts, white matter disease, Silent cerebrovascular disease, no evidence of clinical stroke. Note normal carotids Plan As discussed with Mr. Beck, hira to add on Coumadin Continue aspirin, clopidogrel, statin Subjective no complaints Objective Vital Signs Date Time Temp Pulse Resp B/P (MAP) Pulse Ox O2 Delivery O2 Flow Rate FiO2 06/25/19 09:44 94 100/70 06/25/19 08:00 Room Air 06/25/19 07:00 97.9 20 98 97.9 Intake and Output 06/25/19 07:00 Intake Total 320 ml Output Total 745 ml Balance -425 ml Intake Oral 320 ml Output Urine Total 745 ml PHYSICAL EXAM Alert. Oriented to time, place and person. PERRL. EOMI. CN: no focal findings. Muscle tone: normal. Muscle strength: 5/5 DTR: 2+ Plantar reflex: flexor Gait: not examined in bed. Sensory exam: no abnormal findings. No cerebellar signs elicited. Review of Relevant I have reviewed the following items dunia (where applicable) has been applied. Labs Laboratory Tests Test 06/23/19 11:35 06/24/19 14:00 06/25/19 04:40 Troponin I Quantitative 0.984 ng/mL (0.000-0.055) Prothrombin Time 23.3 SEC (11.7-14.0) 18.7 SEC (11.7-14.0) Prothromb Time International Ratio 2.1 (0.8-1.1) 1.6 (0.8-1.1) Sodium Level 142 mmol/L (136-145) Potassium Level 4.1 mmol/L (3.5-5.1) Chloride Level 103 mmol/L (98-107) Carbon Dioxide Level 27 mmol/L (21-32) Anion Gap 12 (6-14) Blood Urea Nitrogen 56 mg/dL (8-26) Creatinine 1.8 mg/dL (0.7-1.3) Estimated GFR (Cockcroft-Gault) 45.9 Glucose Level 111 mg/dL (70-99) Calcium Level 9.3 mg/dL (8.5-10.1) Laboratory Tests Test 06/24/19 14:00 06/25/19 04:40 Prothrombin Time 23.3 SEC (11.7-14.0) 18.7 SEC (11.7-14.0) Prothromb Time International Ratio 2.1 (0.8-1.1) 1.6 (0.8-1.1) Sodium Level 142 mmol/L (136-145) Potassium Level 4.1 mmol/L (3.5-5.1) Chloride Level 103 mmol/L (98-107) Carbon Dioxide Level 27 mmol/L (21-32) Anion Gap 12 (6-14) Blood Urea Nitrogen 56 mg/dL (8-26) Creatinine 1.8 mg/dL (0.7-1.3) Estimated GFR (Cockcroft-Gault) 45.9 Glucose Level 111 mg/dL (70-99) Calcium Level 9.3 mg/dL (8.5-10.1) Medications Current Medications Influenza Virus Vaccine Quadrival (Afluria Quad 2019-20 (3yr Up) Syringe) 0.5 ml ONCE ONCE VAX IM ; Start 06/22/19 at 20:00; Stop 06/22/19 at 20:01; Status DC Aspirin (Children'S Aspirin) 81 mg DAILY PO Last administered on 06/25/19at 08:27; Start 06/23/19 at 09:00 Atorvastatin Calcium (Lipitor) 40 mg HS PO Last administered on 06/24/19at 21:18; Start 06/22/19 at 21:00 Carvedilol (Coreg) 12.5 mg BIDWMEALS PO ; Start 06/23/19 at 08:00; Stop 06/24/19 at 14:17; Status DC Clopidogrel Bisulfate (Plavix) 75 mg DAILYWBKFT PO Last administered on 0at 08:27; Start 06/23/19 at 08:00 Furosemide (Lasix) 40 mg DAILY PO Last administered on 06/25/19at 08:27; Start 06/23/19 at 09:00 Hydralazine HCl (Apresoline) 25 mg BID PO Last administered on 06/25/19at 08:27; Start 06/22/19 at 21:00 Isosorbide Mononitrate (Imdur) 30 mg DAILY PO Last administered on 06/25/19at 09:44; Start 06/23/19 at 09:00 Lorazepam (Ativan Inj) 0.5 mg PRN Q6HRS PRN IV ANXIETY / AGITATION; Start 06/22/19 at 19:00 Ondansetron HCl (Zofran) 4 mg PRN Q6HRS PRN IV NAUSEA/VOMITING; Start 06/22/19 at 19:00 Famotidine (Pepcid Vial) 20 mg DAILY IVP Last administered on 06/25/19at 08:28; Start 06/22/19 at 21:00 Heparin Sodium (Porcine) (Heparin Sodium) 5,000 unit Q12HR SQ Last administered on 06/24/19at 08:36; Start 06/22/19 at 21:00; Stop 06/24/19 at 13:34; Status DC Sodium Chloride (Normal Saline Flush) 3 ml QSHIFT PRN IV AFTER MEDS AND BLOOD DRAWS; Start 06/22/19 at 19:00 Acetaminophen/ Hydrocodone Bitart (Lortab 5/325) 1 tab PRN Q4HRS PRN PO MILD PAIN 1-3; Start 06/22/19 at 19:00 Hydromorphone HCl (Dilaudid) 0.4 mg PRN Q1HR PRN IV PAIN; Start 06/22/19 at 19:00 Docusate Sodium (Colace) 100 mg BID PO Last administered on 06/25/19at 08:27; Start 06/22/19 at 21:00 Bisacodyl (Dulcolax Supp) 10 mg PRN DAILY PRN [place] CONSTIPATION; Start 06/22/19 a t 19:00 Nitroglycerin/ Dextrose 250 ml @ 1.5 mls/hr CONT PRN IV SEE I/O RECORD; Start 06/23/19 at 00:00 Warfarin Sodium (Coumadin Per Pharmacy) 1 each PRN DAILY PRN MC SEE COMMENTS Last administered on 06/24/19at 15:35; Start 06/24/19 at 13:45 Carvedilol (Coreg) 3.125 mg BIDWMEALS PO Last administered on 06/25/19at 08:27; Start 06/24/19 at 17:00 Warfarin Sodium (Coumadin) 1 mg 1X WARF ONCE PO Last administered on 06/24/19at 16:18; Start 06/24/19 at 16:00; Stop 06/24/19 at 16:01; Status DC Active Scripts Active Isosorbide Mononitrate Er (Isosorbide Mononitrate) 30 Mg Tab.er.24h 1 Tab PO DAILY 30 Days Furosemide 20 Mg Tablet 40 Mg PO DAILY 30 Days Coreg (Carvedilol) 12.5 Mg Tablet 12.5 Mg PO BIDWMEALS 30 Days Hydralazine Hcl 25 Mg Tablet 25 Mg PO BID 30 Days Clopidogrel (Clopidogrel Bisulfate) 75 Mg Tablet 75 Mg PO DAILYWBKFT 30 Days Reported Aspirin 81 Mg Tab.chew 81 Mg PO DAILY Atorvastatin Calcium 40 Mg Tablet 40 Mg PO HS Vitals/I & O Vital Sign - Last 24 Hours 06/24/19 06/24/19 06/24/19 06/24/19 11:00 12:00 15:00 16:00 Temp 98.1 97.8 98.1 97.8 Pulse 92 92 94 94 Resp 21 15 B/P (MAP) 128/71 (90) 92/53 (66) 120/56 (77) 110/70 (83) Pulse Ox 99 100 O2 Delivery Room Air Room Air Room Air Room Air 06/24/19 06/24/19 06/24/19 06/24/19 17:56 20:00 20:00 23:00 Temp 98.6 98.4 98.6 98.4 Pulse 92 74 90 Resp 17 18 B/P (MAP) 113/71 103/73 (83) 123/72 (89) Pulse Ox 100 100 O2 Delivery Room Air Room Air Room Air 06/25/19 06/25/19 06/25/19 06/25/19 03:00 07:00 08:00 08:27 Temp 98.5 97.9 98.5 97.9 Pulse 101 97 98 Resp 16 20 B/P (MAP) 126/72 (90) 107/66 (80) 107/66 Pulse Ox 100 98 O2 Delivery Room Air Room Air Room Air 06/25/19 06/25/19 06/25/19 08:27 09:40 09:44 Pulse 96 96 94 B/P (MAP) 107/66 100/70 (80) 100/70 Intake and Output 06/24/19 06/24/1906/25/20 15:00 23:00 07:00 Intake Total 120 ml 200 ml Output Total 550 ml 195 ml Balance 120 ml -550 ml 5 ml Images DOPPLER CAROTID BILAT Clinical indications: Silent strokes. Duplex sonography of the cervical portion of both carotid arteries was performed including color flow imaging and spectral waveform analysis with flow velocity measurement and clayton scale evaluation. Right side: Peak systolic flow velocity of the CCA is 68 cm/sec. Peak systolic flow velocity of the ICA is 109 cm/sec. Thus, the ICA/CCA ratio is 1.6. Peak end diastolic flow velocity of the ICA is 36 cm/sec. The peak systolic velocity of the ECA is 81 cm/sec. Left side: Peak systolic flow velocity of the CCA is 103 cm/sec. Peak systolic flow velocity of the ICA is 102 cm/sec. Thus, the ICA/CCA ratio is approximately 1.0. Peak end diastolic flow velocity of the ICA is 33 cm/sec. Peak systolic flow velocity of the ECA is 79 cm/sec. There is mild plaque formation within the carotid bulbs bilaterally which is less than 50 percent.. There is mild plaque formation within the proximal right ICA which is less than 50 percent. Antegrade vertebral flow is seen bilaterally. The measurements were made using the NASCET criteria. Impression: Mild plaque formation is seen within the carotid bifurcations bilaterally. [facility] MRI head without contrast 06/10/2019 1. Areas of acute to early subacute infarct at the bilateral occipital lobes, bilateral frontal lobes, bilateral parietal, and posterior left temporal lobes as described. 2. Probable subacute medial right cerebellar and left middle frontal gyrus subacute infarcts. 3. Previous small old posterior right occipital and bilateral medial frontal infarcts. Additional old bilateral lacunar type infarcts involving the basal ganglia. 4. Mild to moderate supratentorial and pontine white matter disease, nonspecific though likely from chronic small vessel ischemia in a patient this age. 5. Susceptibility associated with the old right occipital infarct, most compatible with older hemorrhage. No definite acute hemorrhagic conversion identified. CT head noncontrast 06/12/2019 1. No acute intracranial hemorrhage or calvarial fracture. 2. Expected evolution of acute to early subacute appearing infarcts involving the bilateral parieto-occipital regions and posterior left temporal lobe. No evidence of hemorrhagic conversion. 3. Stable encephalomalacia within the bilateral medial frontal lobes and old bilateral basal ganglia infarcts. 4. Moderate nonspecific supratentorial and pontine white matter disease, likely secondary to chronic microvascular ischemic changes. Lower extremity Doppler arterial 06/09/2019 1. Patent axillary-bifemoral graft with decreased flow and mild systolic acceleration delay at the distal anastomotic sites with the superficial femoral arteries. 2. Near occlusive thrombus within the mid to distal right SFA. The popliteal artery likely fills via collaterals as there is reversed flow within the SFA distal to the thrombus. Severe popliteal and distal trifurcation artery arterial insufficiency in the right lower extremity. 3. Moderate to severe arterial insufficiency throughout the left SFA, popliteal artery and trifurcation arteries of the calf. 4. Reversed flow within the left common femoral artery. ECHOCARDIOGRAM 06/09/2019 [facility] Normal left ventricular cavity size with moderate concentric left ventricular hypertrophy. Moderate reduction in left ventricular systolic function. LVEF approximately 30%. Regional wall motion abnormalities as described below. Mild diastolic dysfunction. No intracardiac mass or thrombus noted. Mildly dilated right ventricle with mild reduction in function. Aortic valve sclerosis without stenosis. NORMA ESPINAL MD Jun 25, 2019 10:12
--- NOTE | 2019-06-25 11:49 | NUR ---
Spoke with Dr. Boles regarding discharge instructions for BP medications. Dr. Boles ordered to stop the 25mg Hydralazine and keep pt on Coreg and Imdur 30mg and to follow up in the office. Follow up appt already scheduled for 07/23/2019 @ 0900.
--- NOTE | 2019-06-25 12:10 | PDOC ---
[facility] PROGRESS NOTE Chief Complaint Chief Complaint Acute UNSTABLE ANGINA Hypertension Hyperlipidemia ACUTE ON CHRONIC COMBINED SYSTOLIC AND DIASTOLIC HEART FAILURE Ischemic cardiomyopathy HX NONCOMPLIANCE PULMONARY HYPERTENSION, MOD-SEVERE History of Present Illness History of Present Illness Patient was seen and examined in the ICU Discussed with RN Current INR reviewed Subspecialty notes reviewed Vitals/I&O Vitals/I&O: Vital Signs Date Time Temp Pulse Resp B/P (MAP) Pulse Ox O2 Delivery O2 Flow Rate FiO2 06/25/19 11:00 97.9 89 24 89/55 (66) 94 Room Air 97.9 I & O 06/24/19 06/24/19 06/25/19 15:00 23:00 07:00 Intake Total 120 ml 200 ml Output Total 550 ml 195 ml Balance 120 ml -550 ml 5 ml Physical Exam General: Alert, Oriented X3, Cooperative, No acute distress Heart: Regular rate (SR), Other (3/6 systolic murmur to LLS border) Lungs: Clear, Wheezing Abdomen: Soft, No tenderness Extremities: No cyanosis, No edema Skin: No breakdown, Other (surgical incision to bilatera calf region intact well approximated with peggy. Surgical incision around the right clavicle) Labs Labs: Laboratory Tests Test 06/24/19 14:00 06/25/19 04:40 Prothrombin Time 23.3 SEC (11.7-14.0) 18.7 SEC (11.7-14.0) Prothromb Time International Ratio 2.1 (0.8-1.1) 1.6 (0.8-1.1) Sodium Level 142 mmol/L (136-145) Potassium Level 4.1 mmol/L (3.5-5.1) Chloride Level 103 mmol/L (98-107) Carbon Dioxide Level 27 mmol/L (21-32) Anion Gap 12 (6-14) Blood Urea Nitrogen 56 mg/dL (8-26) Creatinine 1.8 mg/dL (0.7-1.3) Estimated GFR (Cockcroft-Gault) 45.9 Glucose Level 111 mg/dL (70-99) Calcium Level 9.3 mg/dL (8.5-10.1) Review of Systems Review of Systems: Heart: patient denies palpitations, patient denies chest pain Lungs: patient denies SOB, patient denies cough Assessment and Plan Assessmemt and Plan assessment: Acute UNSTABLE ANGINA Hypertension Hyperlipidemia ACUTE ON CHRONIC COMBINED SYSTOLIC AND DIASTOLIC HEART FAILURE Ischemic cardiomyopathy HX NONCOMPLIANCE PULMONARY HYPERTENSION, MOD-SEVERE Plan: Patient is stable for D/C to home Per cardiology, 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 Medications: Current Medications Medications (Trade) Dose Ordered Sig/Mandie Route PRN Reason Start Time Stop Time Status Last Admin Dose Admin Warfarin Sodium (Coumadin Per Pharmacy) 1 each PRN DAILY PRN MC SEE COMMENTS 06/24/19 13:45 06/25/19 10:06 Carvedilol (Coreg) 3.125 mg BIDWMEALS PO 06/24/19 17:00 06/25/19 08:27 Warfarin Sodium (Coumadin) 1 mg 1X WARF ONCE PO 06/24/19 16:00 06/24/19 16:01 DC 06/24/19 16:18 TREMAYNE RÍOS III DO Jun 25, 2019 12:10
--- NOTE | 2019-06-25 13:00 | NUR ---
This RN started going over discharge paperwork with pt @ 1230. Pt sitting up at bedside, became very dizzy and passed out back into the bed. Pt did not hit head. BP was taken at this time 73/59. Pt was put back into bed with feet elevated. Monitor re-applied, IV access obtained. Repeat BP reading @ 1245-- 64/47. Daughter at bedside and informed that pt will not be discharging at this time. Dr. Haynes notified of syncopal episode. BP @ 1300 is 83/53. Pt given H20 and meal tray. Once pt was laid back down, his dizziness subsided some. Will re assess.
--- NOTE | 2019-06-25 13:35 | NUR ---
Beatriz Kong [employer] regarding SBP 60s-- orders received for 250cc Bolus x1.
[2019-06-25] MEDS ORDERED: IV NORMAL SALINE 500ML BAG 500 ML IV ONE (13:45)
[2019-06-25] MEDS ORDERED: WARFARIN 2 MG TABLET. PO ONE (16:00)
[2019-06-25] MEDS: ATORVASTATIN CALCIUM 40 MG TABLET. PO SCH (20:58)
--- NOTE | 2019-06-26 01:42 | NUR ---
Entered patient's room to introduce myself, patient wiping nose with tissue, bloody, tissues given, informed probably due to anticoagulant, instructed to hold pressure to nose, etc. To monitor.
[2019-06-26 04:00] VITALS: BP 96/56
[2019-06-26 07:10] VITALS: BP 123/71
--- NOTE | 2019-06-26 09:18 | PDOC ---
PROGRESS NOTES Assessment Subacute infarcts of bilateral occipital lobes, bilateral frontal lobes, bilateral parietal, and posterior left temporal lobes, subacute medial right cerebellar and left middle frontal gyrus infarcts old posterior right occipital (with posible old hemorrhage) and bilateral medial frontal infarcts, basal ganglia, infarcts, white matter disease, Silent cerebrovascular disease, no evidence of clinical stroke. Note normal carotids Plan Okay to add on Coumadin Continue aspirin, clopidogrel, statin Subjective no complaints Objective Vital Signs Date Time Temp Pulse Resp B/P (MAP) Pulse Ox O2 Delivery O2 Flow Rate FiO2 06/26/19 07:10 98.2 96 123/71 (88) 98 Room Air 98.2 06/25/19 23:59 17 Intake and Output0 06/26/19 07:00 Intake Total 1092 ml Output Total 1092 ml Balance 0 ml Intake Oral 592 ml IV Total 500 ml Output Urine Total 1090 ml Stool Total 2 ml PHYSICAL EXAM Alert. Oriented to time, place and person. PERRL. EOMI. CN: no focal findings. Muscle tone: normal. Muscle strength: 5/5 DTR: 2+ Plantar reflex: flexor Gait: not examined in bed. Sensory exam: no abnormal findings. No cerebellar signs elicited. Review of Relevant I have reviewed the following items dunia (where applicable) has been applied. Labs Laboratory Tests Test 06/24/19 14:00 06/25/19 04:40 Prothrombin Time 23.3 SEC (11.7-14.0) 18.7 SEC (11.7-14.0) Prothromb Time International Ratio 2.1 (0.8-1.1) 1.6 (0.8-1.1) Sodium Level 142 mmol/L (136-145) Potassium Level 4.1 mmol/L (3.5-5.1) Chloride Level 103 mmol/L (98-107) Carbon Dioxide Level 27 mmol/L (21-32) Anion Gap 12 (6-14) Blood Urea Nitrogen 56 mg/dL (8-26) Creatinine 1.8 mg/dL (0.7-1.3) Estimated GFR (Cockcroft-Gault) 45.9 Glucose Level 111 mg/dL (70-99) Calcium Level 9.3 mg/dL (8.5-10.1) Medications Current Medications Influenza Virus Vaccine Quadrival (Afluria Quad 2018- (3yr Up) Syringe) 0.5 ml ONCE ONCE VAX IM ; Start 06/22/19 at 20:00; Stop 06/22/19 at 20:01; Status DC Aspirin (Children'S Aspirin) 81 mg DAILY PO Last administered on 06/25/19 08:27; Start 06/23/19 at 09:00 Atorvastatin Calcium (Lipitor) 40 mg HS PO Last administered on 06/25/19at 20:58; Start 06/22/19 at 21:00 Carvedilol (Coreg) 12.5 mg BIDWMEALS PO ; Start 06/23/19 at 08:00; Stop 06/24/19 at 14:17; Status DC Clopidogrel Bisulfate (Plavix) 75 mg DAILYWBKFT PO Last administered on 06/25/19 08:27; Start 06/23/19 at 08:00 Furosemide (Lasix) 40 mg DAILY PO Last administered on 06/25/19 08:27; Start 06/23/19 at 09:00 Hydralazine HCl (Apresoline) 25 mg BID PO Last administered on 06/25/19 08:27; Start 06/22/19 at 21:00; Stop 06/25/19 at 13:16; Status DC Isosorbide Mononitrate (Imdur) 30 mg DAILY PO Last administered on 06/25/19at 09:44; Start 06/23/19 at 09:00 Lorazepam (Ativan Inj) 0.5 mg PRN Q6HRS PRN IV ANXIETY / AGITATION; Start 06/22/19 at 19:00 Ondansetron HCl (Zofran) 4 mg PRN Q6HRS PRN IV NAUSEA/VOMITING; Start 06/22/19 at 19:00 Famotidine (Pepcid Vial) 20 mg DAILY IVP Last administered on 06/25/19 08:28; Start 06/22/19 at 21:00 Heparin Sodium (Porcine) (Heparin Sodium) 5,000 unit Q12HR SQ Last administered on 06/24/19 08:36; Start 06/22/19 at 21:00; Stop 06/24/19 at 13:34; Status DC Sodium Chloride (Normal Saline Flush) 3 ml QSHIFT PRN IV AFTER MEDS AND BLOOD DRAWS; Start 06/22/19 at 19:00 Acetaminophen/ Hydrocodone Bitart (Lortab 5/325) 1 tab PRN Q4HRS PRN PO MILD PAIN 1-3; Start 06/22/19 at 19:00 Hydromorphone HCl (Dilaudid) 0.4 mg PRN Q1HR PRN IV PAIN; Start 06/22/19 at 19:00 Docusate Sodium (Colace) 100 mg BID PO Last administered on 06/25/19at 20:58; Start 06/22/19 at 21:00 Bisacodyl (Dulcolax Supp) 10 mg PRN DAILY PRN [place] CONSTIPATION; Start 06/22/19 at 19:00 Nitroglycerin/ Dextrose 250 ml @ 1.5 mls/hr CONT PRN IV SEE I/O RECORD; Start 06/23/19 at 00:00 Warfarin Sodium (Coumadin Per Pharmacy) 1 each PRN DAILY PRN MC SEE COMMENTS Last administered on 06/25/19at 10:06; Start 06/24/19 at 13:45 Carvedilol (Coreg) 3.125 mg BIDWMEALS PO Last administered on 06/25/19at 08:27; Start 06/24/19 at 17:00 Warfarin Sodium (Coumadin) 1 mg 1X WARF ONCE PO Last administered on 06/24/19at 16:18; Start 06/24/19 at 16:00; Stop 06/24/19 at 16:01; Status DC Warfarin Sodium (Coumadin) 2 mg 1X WARF ONCE PO Last administered on 06/25/19at 16:07; Start 06/25/19 at 16:00; Stop 06/25/19 at 16:01; Status DC Sodium Chloride 500 ml @ 500 mls/hr 1X ONCE IV Last administered on 06/25/19at 13:37; Start 06/25/19 at 13:45; Stop 06/25/19 at 14:44; Status DC Active Scripts Active Isosorbide Mononitrate Er (Isosorbide Mononitrate) 30 Mg Tab.er.24h 1 Tab PO DAILY 30 Days Furosemide 20 Mg Tablet 40 Mg PO DAILY 30 Days Clopidogrel (Clopidogrel Bisulfate) 75 Mg Tablet 75 Mg PO DAILYWBKFT 30 Days Reported Aspirin 81 Mg Tab.chew 81 Mg PO DAILY Atorvastatin Calcium 40 Mg Tablet 40 Mg PO HS Vitals/I & O Vital Sign - Last 24 Hours 06/25/19 06/25/19 06/25/19/13/20 09:40 09:44 11:00 12:15 Temp 97.9 97.9 Pulse 96 94 89 94 Resp 24 B/P (MAP) 100/70 (80) 100/70 89/55 (66) 91/67 (75) Pulse Ox 94 O2 Delivery Room Air 06/25/19 06/25/19 06/25/19 06/25/19 12:30 12:45 13:00 13:23 Pulse 100 98 98 91 B/P (MAP) 73/59 (64) 64/47 (53) 83/53 (63) 68/49 (55) 06/25/19 06/25/19 06/25/19 06/25/19 14:00 14:30 15:00 17:00 Temp 97.9 97.9 Pulse 85 98 93 88 Resp 20 B/P (MAP) 83/48 (60) 96/50 (65) 82/45 (57) 83/55 Pulse Ox 97 O2 Delivery Room Air 06/25/19 06/25/19 06/25/19 06/26/19 20:00 20:00 23:59 04:00 Temp 98.2 98.1 98.1 98.2 98.1 98.1 Pulse 94 94 91 Resp 16 17 B/P (MAP) 95/51 (66) 106/54 (71) 96/56 (69) Pulse Ox 97 97 O2 Delivery Room Air Room Air Room Air Room Air 06/26/19 07:10 Temp 98.2 98.2 Pulse 96 B/P (MAP) 123/71 (88) Pulse Ox 98 O2 Delivery Room Air Intake and Output 06/25/19 06/25/19 06/26/19 15:00 23:00 07:00 Intake Total 855 ml 237 ml Output Total 435 ml 231 ml 426 ml Balance 420 ml 6 ml -426 ml NORMA ESPINAL MD Jun 26, 2019 09:18
--- NOTE | 2019-06-26 09:33 | PDOC ---
CARDIO Progress Notes Date and Time Date of Service 06/26/2019 Time of Evaluation 0910 Subjective Subjective: No Chest Pain, No shortness of breath, No Palpitations Vitals Vitals Vital Signs Date Time Temp Pulse Resp B/P (MAP) Pulse Ox O2 Delivery O2 Flow Rate FiO2 06/26/19 07:10 98.2 96 123/71 (88) 98 Room Air 98.2 06/25/19 23:59 17 Weight Weight [ ] Input and Output Intake and Output Intake and Output 06/26/19 07:00 Intake Total 1092 ml Output Total 1092 ml Balance 0 ml Intake Oral 592 ml IV Total 500 ml Output Urine Total 1090 ml Stool Total 2 ml Physical Exam HEENT: Neck Supple W Full Motion Chest: Symmetric LUNGS: Clear to Auscultation Heart: S1S2, RRR (SR no significant ectopies) Abdomen: Soft N/T Extremities: No Edema, No Calf Tenderness Neurology: alert, oriented, follow commands Assessment Assessment 1. CP: mixed features. No further pain overnight 2. CAD: recent stent to LAD with PTCA to Diagonal 05/18/2019, clinically stable 3. ICM: recent EF at 30% improved from 15%. Appears compensated 4. Coagulopathy: on coumadin INR at 3.3 5. HLP 6. MIld anemia with thrombocytosis 7. Recent CVA: noted via MRI at [facility] 06/10/2019. Neurology following 8. Severe PAD with extensive thrombus: prompting recent emergent right axillary artery bifemoral bypass, endarterectomy and thrombectomy and bilateral fasciotomy on 05/31/2019 9. Hx of recent LV thrombus: recent echo none noted 10. Hx of PEA arrest 11. FELIX on CKD 3 with known RASHAWN. Cr 12. NSTEMI: peaked trop at 1.4 with no acute changes to EKG by comparison. This is multifactorial with recent significant endothelial injury and likely component of vasopasm. Recommendations 1. ASA, plavix, coumadin, 2. Pt is a vasculopath with significant extra cardiac comorbid conditions. Continue optimization via GDMT 3. Continue low dose coreg. Unable to tolerate imdur and hydralazine inducing hypotension will stop for now. Will reeval further as an outpt. 4. Continue lifevest 5. Follow up in office in 4 weeks. 2L FR and daily wt. 6. Pt verbalized no urology specialist but has suprapubic cath. Discussed with RN, will inquire with family member to clarify and educate about his meds, daily wt, HBPM. 7. OT and PT today prior to DC and assess need for home health. JULI MASSEY APRN Jun 26, 2019 09:33
[2019-06-26 09:39] LABS: CALCIUM 9.3 mg/dL (8.5-10.1); CREATININE 1.4 mg/dL (0.7-1.3); GFR 61.4; POTASSIUM 4.6 mmol/L (3.5-5.1)
[2019-06-26 09:45] LABS: PROTHROMBIN TIME PATIENT 17.4 SEC (11.7-14.0)
[2019-06-26] MEDS: DOCUSATE SODIUM 100 MG CAPSULE. PO SCH (10:21)
[2019-06-26] MEDS: CLOPIDOGREL BISULFATE 75 MG TABLET PO SCH (10:21)
[2019-06-26 10:22] VITALS: BP 135/65
[2019-06-26] MEDS: FAMOTIDINE 20 MG/2 ML VIAL IVP SCH (10:22)
[2019-06-26] MEDS: FUROSEMIDE 20 MG TABLET PO SCH (10:22)
[2019-06-26] MEDS: CARVEDILOL 3.125 MG TABLET. PO SCH (10:22)
[2019-06-26] MEDS: ASPIRIN CHEWABLE 81 MG TABLET. PO SCH (10:23)
--- NOTE | 2019-06-26 10:33 | NUR ---
Pharmacy Warfarin Dosing Note S:Pharmacy consulted to assist with anticoagulation therapy started with target INR: 2 -3 O:DIOGO MADRIGAL is a 64 year old M with DVT/PE. LABS: Last INR: 1.5 Last HGB: 10.5 Last HCT: 32 Last PLT: 537 Last dose of 2 mg given on 06/25/19 at 1607 Previous Regimen: 1.5mg daily Vitamin K given: N A:INR of 1.5 is below desired range. Target range for this patient is: 2 -3 P: Warfarin dose: 2 mg Today at 1600 Bridge Therapy: None Next INR due 06/27/19. Pharmacy anticoagulation service will continue to follow. DARI LIN ROPER [facility], 06/26/19 [id number]
--- NOTE | 2019-06-26 10:43 | PDOC ---
[facility] PROGRESS NOTE Chief Complaint Chief Complaint Acute UNSTABLE ANGINA Hypertension Hyperlipidemia ACUTE ON CHRONIC COMBINED SYSTOLIC AND DIASTOLIC HEART FAILURE Ischemic cardiomyopathy HX NONCOMPLIANCE PULMONARY HYPERTENSION, MOD-SEVERE History of Present Illness History of Present Illness Patient was seen and examined in the ICU Discussed with RN Current INR reviewed Subspecialty notes reviewed Vitals/I&O Vitals/I&O: Vital Signs Date Time Temp Pulse Resp B/P (MAP) Pulse Ox O2 Delivery O2 Flow Rate FiO2 06/26/19 10:22 90 135/65 06/26/19 07:10 98.2 98 Room Air 98.2 06/25/19 23:59 17 I & O 06/25/19 06/25/19 06/26/19 15:00 23:00 07:00 Intake Total 855 ml 237 ml Output Total 435 ml 231 ml 426 ml Balance 420 ml 6 ml -426 ml Physical Exam General: Alert, Oriented X3, Cooperative, No acute distress Heart: Regular rate (SR), Other (3/6 systolic murmur to LLS border) Lungs: Clear, Wheezing Abdomen: Soft, No tenderness Extremities: No cyanosis, No edema Skin: No breakdown, Other (surgical incision to bilatera calf region intact well approximated with peggy. Surgical incision around the right clavicle) Labs Labs: Laboratory Tests Test 06/26/19 09:00 Prothrombin Time 17.4 SEC (11.7-14.0) Prothromb Time International Ratio 1.5 (0.8-1.1) Sodium Level 141 mmol/L (136-145) Potassium Level 4.6 mmol/L (3.5-5.1) Chloride Level 103 mmol/L (98-107) Carbon Dioxide Level 29 mmol/L (21-32) Anion Gap 9 (6-14) Blood Urea Nitrogen 41 mg/dL (8-26) Creatinine 1.4 mg/dL (0.7-1.3) Estimated GFR (Cockcroft-Gault) 61.4 Glucose Level 94 mg/dL (70-99) Calcium Level 9.3 mg/dL (8.5-10.1) Review of Systems Review of Systems: heart: patient denies chest pain or palpitations GI: denies n/v/d Assessment and Plan Assessmemt and Plan assessment: Acute UNSTABLE ANGINA Hypertension Hyperlipidemia ACUTE ON CHRONIC COMBINED SYSTOLIC AND DIASTOLIC HEART FAILURE Ischemic cardiomyopathy HX NONCOMPLIANCE PULMONARY HYPERTENSION, MOD-SEVERE Plan: D/C was delayed yesterday due to hypotension concerns however BP is stable currently and is to be D/C home today. Comment Review of Relevant I have reviewed the following items dunia (where applicable) has been applied. Medications: Current Medications Medications (Trade) Dose Ordered Sig/Mandie Route PRN Reason Start Time Stop Time Status Last Admin Dose Admin Warfarin Sodium (Coumadin) 2 mg 1X WARF ONCE PO 06/25/19 16:00 06/25/19 16:01 DC 06/25/19 16:07 Sodium Chloride 500 ml @ 500 mls/hr 1X ONCE IV 06/25/19 13:45 06/25/19 14:44 DC 06/25/19 13:37 TREMAYNE RÍOS III DO Jun 26, 2019 10:43
--- NOTE | 2019-06-26 11:05 | SNU/HH DC ---
DISCHARGE WITH HOME HEALTH DISCHARGE INFORMATION: Condition on Discharge: Stable CODE STATUS: Code Status: Full HOME HEALTH: Face to Face: I certify this patient is under my care and that I, or a nurse practitioner or physician's language assistant working with me, had a face to face encounter that meets the physician face to face encounter requirements with this patient on []. Medical Complications: CHF RN For Eval/Treatment: Yes Physical Therapy For: Evalulation/Treatment Speech Language Pathology For: Evaluation/Treatment Home Health Aide For: Self-care [place] For: Community Resources Pt Meets Homebound Status: Extreme weakness w/ amb. POST DISCHARGE ORDERS: Activity Instructions for Disc: Activity as tolerated Weight Bearing Status after Di: As tolerated Bathing Instructions: Shower-keep dressing dry, No Tub Bath until see Dr. ENCINAS AFTER DISCHARGE: Cardiac CHECKS AFTER DISCHARGE: Checks after discharge: Check blood press - daily Comment: Check BP daily and report any SBP >160 FOLLOW-UP: Follow up with: Vascular Surgeon in 1 week. Call for appointment. Follow Up With: Dr. Soliz 07/23/2019 @0900 TREATMENT/EQUIPMENT ORDERS: Adaptive Equipment Issued: None CERTIFICATION STATEMENT: Certification Statement: Certification Statement: Based on the above finding, I certify that this patient is confined to the home and needs intermittent mcc care, physical therapy and/or speech therapy, or continues to need occupational therapy.~ This patient is under my care, and I have initiated the establishment of the plan of care.~ This patient will be followed by myself or a community physician who will periodically review the plan of care. Home Meds Active Scripts Isosorbide Mononitrate (ISOSORBIDE MONONITRATE ER) 30 Mg Tab.er.24h, 1 TAB PO DAILY for CHF for 30 Days, #30 TAB 5 Refills Prov:ALBINO SILVA MD 05/21/19 Furosemide (FUROSEMIDE) 20 Mg Tablet, 40 MG PO DAILY for CHF for 30 Days, #60 TAB Prov:ALBINO SILVA MD 05/21/19 Clopidogrel Bisulfate (CLOPIDOGREL) 75 Mg Tablet, 75 MG PO DAILYWBKFT for coronary artery disease for 30 Days, #30 TAB 2 Refills Prov:SHEEBA ROMAN APRN 05/19/19 Reported Medications Aspirin (ASPIRIN) 81 Mg Tab.chew, 81 MG PO DAILY, TAB.CHEW 09/18/17 Atorvastatin Calcium (ATORVASTATIN CALCIUM) 40 Mg Tablet, 40 MG PO HS for FOR CHOLESTEROL, #30 TAB 0 Refills 09/18/17 TREMAYNE RÍOS III DO Jun 26, 2019 11:05
[2019-06-26] MEDS ORDERED: CARV3.12 PO (11:34)
--- NOTE | 2019-06-26 12:17 | NUR ---
Discharge Note: [facility]IN[facility] MADRIG[facility] ICU Discharge instructions and discharge home medications reviewed with Patient and a copy given. All questions have been answered and understanding verbalized. The following instructions and handouts were given: Follow up with PCP in one week. Follow up with cardiology as scheduled. Education reguarding new medications and incision care was discussed and given to patient. Discontinued lines and drains: Removed with tip intact. Patient discharged to Home with self care. Daughter drove patient from [facility]
[2019-06-26] MEDS ORDERED: WARFARIN 2 MG TABLET. PO ONE (16:00)
[2019-06-27] MEDS ORDERED: LISINOPRIL 5 MG TABLET. PO SCH (09:00)
== END 2019-06-26 12:26 | disposition home or self-care (01) | DRG 280 ==
LOC: 1 WEST ICU 17:23
PROVIDERS: ADMIT Family Medicine; ATTEND Family Medicine
DX: I21.4 Non-ST elevation (NSTEMI) myocardial infarction (principal); I50.43 Acute on chronic combined systolic (congestive) and diastolic (congestive) heart failure; N17.9 Acute kidney failure, unspecified; N39.0 Urinary tract infection, site not specified; D68.9 Coagulation defect, unspecified; I13.0 Hypertensive heart and chronic kidney disease with heart failure and stage 1 through stage 4 chronic kidney disease, or unspecified chronic kidney disease; I25.10 Atherosclerotic heart disease of native coronary artery without angina pectoris; D64.9 Anemia, unspecified; E78.5 Hyperlipidemia, unspecified; I25.5 Ischemic cardiomyopathy; I27.20 Pulmonary hypertension, unspecified; I35.8 Other nonrheumatic aortic valve disorders; I67.9 Cerebrovascular disease, unspecified; I73.9 Peripheral vascular disease, unspecified; I77.1 Stricture of artery; M19.90 Unspecified osteoarthritis, unspecified site; N18.3 Chronic kidney disease, stage 3 (moderate); Z79.01 Long term (current) use of anticoagulants; Z82.49 Family history of ischemic heart disease and other diseases of the circulatory system; Z86.73 Personal history of transient ischemic attack (TIA), and cerebral infarction without residual deficits; Z86.74 Personal history of sudden cardiac arrest; Z87.891 Personal history of nicotine dependence; Z91.19 Patient's noncompliance with other medical treatment and regimen
CPT/HCPCS: 36415; 80048; 80053; 84484; 85025; 85610; 85730; 93005; 93880; J1644; J3490; J7040; G0378

== ENCOUNTER 2019-10-21 01:44 | Inpatient (IN) | payer MEDICARE, OTHER ==
[~2019-10-21] VITALS: Ht 167.6 cm; Wt 68.4 kg
[~2019-10-21 01:44] MED LIST changes: +CARV3.12 PO
[2019-10-21] MEDS ORDERED: ALBUTEROL SULFATE 2.5 MG/3 ML NEBU. NEB ONE (02:15)
[2019-10-21] MEDS ORDERED: IPRATRPIUM/ALBUTEROL 0.5/2.5MG 3 ML NEBU. NEB ONE (02:15)
--- NOTE | 2019-10-21 02:48 | PHYS DOC ---
Past Medical History Past Medical History: CHF, DVT, Hypertension, HI, Other Additional Past Medical Histor: HEART ATTACK Past Surgical History: No Surgical History Additional Past Surgical Histo: bilat lower ext surgery, suprapubic catheter Smoking Status: Former Smoker Alcohol Use: Occasionally Drug Use: None General Adult EDM: Chief Complaint: SHORTNESS OF BREATH HPI: HPI: Patient is a 64 year old male who presents with complaint of shortness of breath that started earlier this evening. Patient with audible wheezing and EMS states that patient's oxygen saturation was 88% on room air upon their arrival. Patient is not on home oxygen. Patient indicates that he has a cough that is been dry. He denies any fever. He also denies any chest pain. He states the shortness of breath is worsened with exertion. [] Review of Systems: Review of Systems: Constitutional: Denies fever or chills. [] Respiratory: Complains of cough and shortness of breath. [] Cardiovascular: Denies chest pain or edema. [] GI: Denies abdominal pain, nausea, vomiting or diarrhea. [] Neurologic: Denies headache, focal weakness or sensory changes. [] A full 10 point review of systems has been reviewed and is otherwise negative. Heart Score: Risk Factors: Risk Factors: DM, Current or recent (<one month) smoker, HTN, HLP, family history of CAD, obesity. Risk Scores: Score 0 - 3: 2.5% MACE over next 6 weeks - Discharge Home Score 4 - 6: 20.3% MACE over next 6 weeks - Admit for Clinical Observation Score 7 - 10: 72.7% MACE over next 6 weeks - Early Invasive Strategies Current Medications: Current Medications Medications (Trade) Dose Ordered Sig/Mandie Start Time Stop Time Status Last Admin Dose Admin Albuterol Sulfate (Ventolin Neb Soln) 5 mg 1X ONCE 10/21/19 02:15 10/21/19 02:16 DC Albuterol/ Ipratropium (Duoneb) 3 ml 1X ONCE 10/21/19 02:15 10/21/19 02:16 DC Allergies: Allergies: Allergies Coded Allergies Type Severity Reaction Last Updated Verified No Known Drug Allergies 09/17/17 No Physical Exam: PE: Constitutional: Well developed, well nourished, no acute distress, non-toxic appearance. [] HENT: Normocephalic, atraumatic, bilateral external ears normal, oropharynx moist, no oral exudates, nose normal. [] Eyes: PERRLA, EOMI, conjunctiva normal, no discharge. [] Neck: Normal range of motion, no tenderness, supple, no stridor. [] Cardiovascular: Regular rate and rhythm [] Lungs & Thorax: Coarse inspiratory and expiratory wheezes are noted bilaterally to auscultation [] Abdomen: Bowel sounds normal, soft, no tenderness. [] Skin: Warm, dry, no erythema, no rash. [] Extremities: No tenderness, no cyanosis, no clubbing, ROM intact, no edema. [] Neurologic: Alert and oriented X 3, no focal deficits noted. [] EKG: EKG: [] Radiology/Procedures: Radiology/Procedures: [] Impression: PROCEDURE: PORTABLE CHEST 1V INDICATION: Reason: sob / Spl. Instructions: / History: COMPARISON: June 08, 2019 FINDINGS: Single view of chest obtained. Cardiac silhouette is similar to prior. AICD with 2 leads is now visualized. There is also a apparent stent projecting over the cardiac silhouette on the left. Blunting of the right costophrenic angle without well-defined airspace consolidation. IMPRESSION: * Blunting of the right costophrenic angle which could be secondary to small pleural effusion or pleural thickening. Electronically signed by: Devante Ramirez MD (10/21/2019 3:09 AM) [id number] Course & Med Decision Making: Course & Med Decision Making Pertinent Labs and Imaging studies reviewed. (See chart for details) [] Dragon Disclaimer: Dragon Disclaimer: This electronic medical record was generated, in whole or in part, using a voice recognition dictation system. Departure Departure Impression: Primary Impression: COPD exacerbation Additional Impressions: Hypoxemia Hyperkalemia Chronic renal disease Qualified Codes: N18.9 - Chronic kidney disease, unspecified Disposition: ADMITTED INPATIENT Admitting Physician: HIMS Condition: IMPROVED Referrals: JAVIER BARRAZA MD (PCP) Justicifation of Admission Dx: Justifications for Admission: Justification of Admission Dx: Comment: (COPD; Hypoxemia; Hyperkalemia; CKD) RODO VALENTINE Jr. DO Oct 21, 2019 02:48
--- NOTE | 2019-10-21 03:12 | RAD ---
INDICATION: Reason: sob / Spl. Instructions: / History: COMPARISON: June 08, 2019 FINDINGS: Single view of chest obtained. Cardiac silhouette is similar to prior. AICD with 2 leads is now visualized. There is also a apparent stent projecting over the cardiac silhouette on the left. Blunting of the right costophrenic angle without well-defined airspace consolidation. IMPRESSION: * Blunting of the right costophrenic angle which could be secondary to small pleural effusion or pleural thickening. Electronically signed by: Devante Ramirez MD (10/21/2019 3:09 AM) [id number]
[2019-10-21 04:13] LABS: BASO # 0.1 x10^3/uL (0.0-0.2); BASO % 1 % (0-3); EOS # 0.9 x10^3/uL (0.0-0.7); EOS % 8 % (0-3); HEMATOCRIT 43.6 % (39.0-53.0); LYMPH # 0.7 x10^3/uL (1.0-4.8); LYMPH % 6 % (24-48); MEAN CORPUSCULAR HEMOGLOBIN 27 pg (25-35); MEAN CORPUSCULAR HGB CONC 32 g/dL (31-37); MEAN CORPUSCULAR VOLUME 83 fL (79-100); MONO # 0.5 x10^3/uL (0.0-1.1); MONO % 4 % (0-9); NEUT # 8.9 x10^3/uL (1.8-7.7); NEUT % 81 % (31-73); PLATELET COUNT 332 x10^3/uL (140-400); RED BLOOD COUNT 5.24 x10^6/uL (4.30-5.70); RED CELL DISTRIBUTION WIDTH 17.2 % (11.5-14.5); WHITE BLOOD COUNT 11.1 x10^3/uL (4.0-11.0)
[2019-10-21 04:33] LABS: ALBUMIN 3.7 g/dL (3.4-5.0); ALBUMIN/GLOBULIN RATIO 0.7 (1.0-1.7); CALCIUM 9.5 mg/dL (8.5-10.1); CREATININE 1.7 mg/dL (0.7-1.3); TOTAL BILIRUBIN 0.2 mg/dL (0.2-1.0); TOTAL PROTEIN 8.8 g/dL (6.4-8.2)
[2019-10-21 04:37] LABS: POTASSIUM 6.3 mmol/L (3.5-5.1)
[2019-10-21] MEDS ORDERED: SODIUM POLYSTYRENE SULFON/SORB 15 GM/60 ML ORAL.SUSP PO ONE (05:00)
[2019-10-21] MEDS ORDERED: DEXTROSE 50% 25 GM / 50ML DISP.SYRIN. IV ONE (05:00)
[2019-10-21] MEDS ORDERED: INSULIN REGULAR 100 UNIT/ML 3ML VIAL. IV ONE (05:00)
--- NOTE | 2019-10-21 06:21 | EKG ---
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 Electronically Signed On 10-23-2019 16:21:07 CDT by Gabino Hernandez
[2019-10-21] MEDS ORDERED: ALBUTEROL SULFATE 2.5 MG/3 ML NEBU. NEB PRN (07:15)
[2019-10-21 07:20] VITALS: BP 133/79
[2019-10-21] MEDS ORDERED: SALIVA STIMULANT AGENT 44ML SPRAY BOTTLE. PO PRN (07:45)
--- NOTE | 2019-10-21 07:46 | PDOC1 ---
History and Physical Date of Admission Date of Admission DATE: 10/21/19 TIME: 07:38 Source Source: Chart review, Patient History of Present Illness History of Present Illness Mr. Kay is a 64 year old male, had sudden onset of shortness of breath with chest pressure, starting at rest last night at 10:30 pm while watching TV. IN ER, he had new audible wheezing and EMS states that patient's oxygen saturation was 88% on room air upon their arrival. He was anxious, but only after he could not breathe he came in with a chirinos, he reports it was placed due to blood clots, and that he is taking coumadin for same blood clots, he is a [employer] of the [place] [employer], and follows at the [facility]. Patient is not on home oxygen, and is now on 2 liters meds given in ER for potassium, he appears dry and is thirsty and asked for PO liquids, he reports chest pressure last night, a little better this AM, was 5/10, mid sternal discomfort Past Medical History Cardiovascular: CAD, CHF, HTN, SC, Other Pulmonary: Pneumonia CENTRAL NERVOUS SYSTEM: CVA Heme/Onc: Anemia NOS Musculoskeletal: Osteoarthritis Renal/: Chronic renal insuff, UTI, Other Endocrine: No pertinent hx Past Surgical History Past Surgical History: Other (fem pop, cardiac stent, AICD) Family History Family History: Heart Disease, Hypertension Social History Smoke: No ALCOHOL: none Drugs: None Current Problem List Problem List Problems Medical Problems: (1) Chronic renal disease Status: Acute (2) COPD exacerbation Status: Acute (3) Hyperkalemia Status: Acute (4) Hypoxemia Status: Acute Current Medications Current Medications Current Medications Albuterol Sulfate (Ventolin Neb Soln) 5 mg 1X ONCE NEB Last administered on 10/21/19at 02:45; Start 10/21/19 at 02:15; Stop 10/21/19 at 02:16; Status DC Albuterol/ Ipratropium (Duoneb) 3 ml 1X ONCE NEB Last administered on 10/21/19at 02:45; Start 10/21/19 at 02:15; Stop 10/21/19 at 02:16; Status DC Sodium Polystyrene Sulfonate (Kayexalate) 15 gm 1X ONCE PO Last administered on 10/21/19at 05:11; Start 6/10/20 at 05:00; Stop 10/21/19 at 05:01; Status DC Dextrose (Dextrose 50%-Water Syringe) 25 gm 1X ONCE IV Last administered on 10/21/19at 05:50; Start 10/21/19 at 05:00; Stop 10/21/19 at 05:01; Status DC Insulin Human Regular (HumuLIN R VIAL) 10 unit 1X ONCE IV Last administered on 10/21/19at 05:11; Start 10/21/19 at 05:00; Stop 10/21/19 at 05:01; Status DC Albuterol/ Ipratropium (Duoneb) 3 ml RTQID NEB ; Start 10/21/19 at 08:00; Stop 10/22/19 at 07:59 Active Scripts Active Isosorbide Mononitrate Er (Isosorbide Mononitrate) 30 Mg Tab.er.24h 1 Tab PO DAILY 30 Days Furosemide 20 Mg Tablet 40 Mg PO DAILY 30 Days Clopidogrel (Clopidogrel Bisulfate) 75 Mg Tablet 75 Mg PO DAILYWBKFT 30 Days Reported Coreg (Carvedilol) 3.125 Mg Tablet 3.125 Mg PO BIDWMEALS Coreg (Carvedilol) 3.125 Mg Tablet 3.125 Mg PO BIDWMEALS Aspirin 81 Mg Tab.chew 81 Mg PO DAILY Atorvastatin Calcium 40 Mg Tablet 40 Mg PO HS Allergies Allergies: Coded Allergies: No Known Drug Allergies (Unverified , 09/17/17) ROS General: YES: Fatigue; No: Chills, Night Sweats, Malaise, Appetite, Other PSYCHOLOGICAL ROS: No: Anxiety, Behavioral Disorder, Concentration difficultie, Decreased libido, Depression, Disorientation, Hallucinations, Hostility, Irritablity, Memory difficulties, Mood Swings, Obsessive thoughts, Physical abuse, Sexual abuse, Sleep disturbances, Suicidal ideation, Other Eyes: No Blurry vision, No Decreased vision, No Double vision, No Dry eyes, No Excessive tearing, No Eye Pain, No Itchy Eyes, No Loss of vision, No Photophobia, No Scotomata, No Uses contacts, No Uses glasses, No Other HEENT: No: Heacaches, Visual Changes, Hearing change, Nasal congestion, Nasal discharge, Oral lesions, Sinus pain, Sore Throat, Epistaxis, Sneezing, Snoring, Tinnitus, Vertigo, Vocal changes, Other Respiratory: YES: Cough, Shortness of breath, SOB with excertion; No: Hemoptysis, Orthopnea, Pleuritic Pain, Sputum Changes, Stridor, Tachypnea, Wheezing, Other Cardiovascular: yes Chest Pain (pressure, sudden); No Palpitations, No Orthopnea, No Paroxysmal Noc. Dyspnea, No Edema, No Lt Headedness, No Other Gastrointestinal: No Nausea, No Vomiting, No Abdominal Pain, No Diarrhea, No Constipation, No Melena, No Hematochezia, No Other Genitourinary: No Dysuria, No Frequency, No Incontinence, No Hematuria, No Retention, No Discharge, No Urgency, No Pain, No Flank Pain, No Other, No , No , No , No , No , No , No Musculoskeletal: Yes Joint Pain, Yes Joint Stiffness; No Gait Disturbance, No Joint Swelling, No Muscle Pain, No Muscular Weakness, No Pain In:, No Swelling In:, No Other Neurological: No Behavorial Changes, No Bowel/Bladder ControlChng, No Confusion, No Dizziness, No Gait Disturbance, No Headaches, No Impaired Coord/balance, No Memory Loss, No Numbness/Tingling, No Seizures, No Speech Problems, No Tremors, No Visual Changes, No Weakness, No Other Skin: No Dry Skin, No Eczema, No Hair Changes, No Lumps, No Mole Changes, No Mottling, No Nail Changes, No Pruritus, No Rash, No Skin Lesion Changes, No Other, No Acne Physical Exam General: Alert, Oriented X3, Cooperative, mild distress HEENT: Mucous membr. moist/pink Lungs: Normal air movement Heart: no gallops, no murmurs Extremities: No clubbing, No edema, Normal pulses Skin: No rashes, No breakdown Neuro: Normal gait, Normal speech, Normal tone, Sensation intact, Cranial nerves 3-12 NL Psych/Mental Status: Mental status NL, Mood NL Vitals Vitals Vital Signs Date Time Temp Pulse Resp B/P (MAP) Pulse Ox O2 Delivery O2 Flow Rate FiO2 10/21/19 06:20 84 124/75 (91) 97 Nasal Cannula 2.0 10/21/19 01:50 97.2 30 97.2 Labs Labs Laboratory Tests Test 10/21/19 04:05 White Blood Count 11.1 x10^3/uL (4.0-11.0) Red Blood Count 5.24 x10^6/uL (4.30-5.70) Hemoglobin 14.0 g/dL (13.0-17.5) Hematocrit 43.6 % (39.0-53.0) Mean Corpuscular Volume 83 fL (79-100) Mean Corpuscular Hemoglobin 27 pg (25-35) Mean Corpuscular Hemoglobin Concent 32 g/dL (31-37) Red Cell Distribution Width 17.2 % (11.5-14.5) Platelet Count 332 x10^3/uL (140-400) Neutrophils (%) (Auto) 81 % (31-73) Lymphocytes (%) (Auto) 6 % (24-48) Monocytes (%) (Auto) 4 % (0-9) Eosinophils (%) (Auto) 8 % (0-3) Basophils (%) (Auto) 1 % (0-3) Neutrophils # (Auto) 8.9 x10^3/uL (1.8-7.7) Lymphocytes # (Auto) 0.7 x10^3/uL (1.0-4.8) Monocytes # (Auto) 0.5 x10^3/uL (0.0-1.1) Eosinophils # (Auto) 0.9 x10^3/uL (0.0-0.7) Basophils # (Auto) 0.1 x10^3/uL (0.0-0.2) Sodium Level 140 mmol/L (136-145) Potassium Level 6.3 mmol/L (3.5-5.1) Chloride Level 104 mmol/L (98-107) Carbon Dioxide Level 32 mmol/L (21-32) Anion Gap 4 (6-14) Blood Urea Nitrogen 26 mg/dL (8-26) Creatinine 1.7 mg/dL (0.7-1.3) Estimated GFR (Cockcroft-Gault) 49.0 BUN/Creatinine Ratio 15 (6-20) Glucose Level 108 mg/dL (70-99) Calcium Level 9.5 mg/dL (8.5-10.1) Total Bilirubin 0.2 mg/dL (0.2-1.0) Aspartate Amino Transf (AST/SGOT) 20 U/L (15-37) Alanine Aminotransferase (ALT/SGPT) 14 U/L (16-63) Alkaline Phosphatase 146 U/L (46-116) Troponin I Quantitative < 0.017 ng/mL (0.000-0.055) FP-Fyc-X-Type Natriuretic Peptide 8193 pg/mL (0-124) Total Protein 8.8 g/dL (6.4-8.2) Albumin 3.7 g/dL (3.4-5.0) Albumin/Globulin Ratio 0.7 (1.0-1.7) Laboratory Tests Test 10/21/19 04:05 White Blood Count 11.1 x10^3/uL (4.0-11.0) Red Blood Count 5.24 x10^6/uL (4.30-5.70) Hemoglobin 14.0 g/dL (13.0-17.5) Hematocrit 43.6 % (39.0-53.0) Mean Corpuscular Volume 83 fL (79-100) Mean Corpuscular Hemoglobin 27 pg (25-35) Mean Corpuscular Hemoglobin Concent 32 g/dL (31-37) Red Cell Distribution Width 17.2 % (11.5-14.5) Platelet Count 332 x10^3/uL (140-400) Neutrophils (%) (Auto) 81 % (31-73) Lymphocytes (%) (Auto) 6 % (24-48) Monocytes (%) (Auto) 4 % (0-9) Eosinophils (%) (Auto) 8 % (0-3) Basophils (%) (Auto) 1 % (0-3) Neutrophils # (Auto) 8.9 x10^3/uL (1.8-7.7) Lymphocytes # (Auto) 0.7 x10^3/uL (1.0-4.8) Monocytes # (Auto) 0.5 x10^3/uL (0.0-1.1) Eosinophils # (Auto) 0.9 x10^3/uL (0.0-0.7) Basophils # (Auto) 0.1 x10^3/uL (0.0-0.2) Sodium Level 140 mmol/L (136-145) Potassium Level 6.3 mmol/L (3.5-5.1) Chloride Level 104 mmol/L (98-107) Carbon Dioxide Level 32 mmol/L (21-32) Anion Gap 4 (6-14) Blood Urea Nitrogen 26 mg/dL (8-26) Creatinine 1.7 mg/dL (0.7-1.3) Estimated GFR (Cockcroft-Gault) 49.0 BUN/Creatinine Ratio 15 (6-20) Glucose Level 108 mg/dL (70-99) Calcium Level 9.5 mg/dL (8.5-10.1) Total Bilirubin 0.2 mg/dL (0.2-1.0) Aspartate Amino Transf (AST/SGOT) 20 U/L (15-37) Alanine Aminotransferase (ALT/SGPT) 14 U/L (16-63) Alkaline Phosphatase 146 U/L (46-116) Troponin I Quantitative < 0.017 ng/mL (0.000-0.055) JP-Evx-E-Type Natriuretic Peptide 8193 pg/mL (0-124) Total Protein 8.8 g/dL (6.4-8.2) Albumin 3.7 g/dL (3.4-5.0) Albumin/Globulin Ratio 0.7 (1.0-1.7) VTE Prophylaxis Ordered VTE Prophylaxis Devices: Yes VTE Pharmacological Prophylaxi: Yes Assessment/Plan Assessment/Plan acute shortness of breath with chest pressure, pain angina, r/o ACS, cardiology consult hx PVD, blood clots, check US legs, check INR, cont coumadin, consider PE for cause of new dyspnea, his creatinine is too high for CT angio. CHF, appears dry alraedy hyperkalemia, insulin and kayexalate given in ER, recheck labs, phos, mag, Justicifation of Admission Dx: Justifications for Admission: Justification of Admission Dx: Yes CHF: Sev. Electrolyte Abnormal Comments: angina, dyspnea, hyperkalemia, MARY BONILLA MD Oct 21, 2019 07:46
[2019-10-21] MEDS ORDERED: IPRATRPIUM/ALBUTEROL 0.5/2.5MG 3 ML NEBU. NEB SCH (08:00)
[2019-10-21 08:16] LABS: CALCIUM 9.3 mg/dL (8.5-10.1); CREATININE 1.7 mg/dL (0.7-1.3); POTASSIUM 4.5 mmol/L (3.5-5.1)
[2019-10-21 08:17] LABS: PROTHROMBIN TIME PATIENT 20.3 SEC (11.7-14.0)
[2019-10-21 08:19] LABS: PHOSPHORUS 3.5 mg/dL (2.6-4.7)
--- NOTE | 2019-10-21 08:42 | RAD ---
Examination: Bilateral venous Doppler Indication: Leg swelling Technique: Ultrasound evaluation of the bilateral lower extremities was performed from the groin to the upper calf with mtz scale, spectral and color doppler evaluation. Comparison: None Findings: There is normal venous flow and compressibility of bilateral common femoral veins, femoral veins, popliteal veins, and visualized proximal calf veins. Impression: No evidence for deep vein thrombosis of bilateral lower extremities from the level of the calf veins to the groins. Electronically signed by: Sujit Aguirre MD (10/21/2019 8:39 AM) [id number]
--- NOTE | 2019-10-21 09:44 | PDOC2 ---
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 Reports that this started last night where he could not take a deep breath and felt like he was unable to breath. No leg swelling, palpitations, nor any associated n/v or chest pain but felt anxious at that time. He does not use O2 but does have COPD but u nclear how severe but he has been having episodes of wheezing and increasing whit sputum but no fever. When he was feeling SOA last night he forgot to use his inhaler and felt panicky. He then decide to come to the hospital. Denies any exertional chest pain. No recent falls or passing out. He follow with Dr. Siu at [facility] and actually had an AICD placed about 3 weeks ago and his incision is healed. No changes in his medications including his diuretic therapy. Upon admission he was noted with elevated K at 6.3 and known for renal insufficiency and takes aldactone. He is compliant with his medications and actually on plavix and coumadin. PAST MEDICAL HISTORY Past Medical History Cardiovascular: CAD, CHF, HTN, Hyperlipidemia, Other (PAD), PEA arrest, past LV thrombus CENTRAL NERVOUS SYSTEM: CVA Heme/Onc: Anemia NOS Musculoskeletal: Osteoarthritis Renal/: Chronic renal insuff, UTI, Other (urinary retention; RASHAWN) Endocrine: No pertinent hx Dermatology: No pertinent hx PAST SURGICAL HISTORY Past Surgical History PCI PREET to LAD and PTCA to diagnoal; post axillary bifemoral bypass along with bilateral lower extremity fasciotomies on 05/31/2019 at [facility] Family History: Hypertension SOCIAL HISTORY Smoke: No ALCOHOL: none Drugs: None Lives: Alone CURRENT MEDICATIONS CURRENT MEDICATIONS Current Medications Medications (Trade) Dose Ordered Sig/Mandie Route PRN Reason Start Time Stop Time Status Last Admin Dose Admin Albuterol Sulfate (Ventolin Neb Soln) 5 mg 1X ONCE NEB 10/21/19 02:15 10/21/19 02:16 DC 10/21/19 02:45 Albuterol/ Ipratropium (Duoneb) 3 ml 1X ONCE NEB 10/21/19 02:15 10/21/19 02:16 DC 10/21/19 02:45 Sodium Polystyrene Sulfonate (Kayexalate) 15 gm 1X ONCE PO 10/21/19 05:00 10/21/19 05:01 DC 10/21/19 05:11 Dextrose (Dextrose 50%-Water Syringe) 25 gm 1X ONCE IV 10/21/19 05:00 10/21/19 05:01 DC 10/21/19 05:50 Insulin Human Regular (HumuLIN R VIAL) 10 unit 1X ONCE IV 10/21/19 05:00 10/21/19 05:01 DC 10/21/19 05:11 ALLERGIES ALLERGIES: Coded Allergies: No Known Drug Allergies (Unverified , 09/17/17) ROS Review of System 14 point ROS evaluated with pertinent positives noted per HPI PHYSICAL EXAM General: Alert, Oriented X3, Cooperative, No acute distress HEENT: Atraumatic, Mucous membr. moist/pink Lungs: Clear to auscultation, Normal air movement Heart: Regular rate (SR), Other (3/6 systolic murmur to LLS border) Abdomen: Soft, No tenderness Extremities: No cyanosis, No edema Skin: No breakdown, No significant lesion Neuro: Normal speech, Sensation intact Psych/Mental Status: Mental status NL, Mood NL MUSCULOSKELETAL: Osteoarthritic changes both hands VITALS/I&O VITALS/I&O: Vital Signs Date Time Temp Pulse Resp B/P (MAP) Pulse Ox O2 Delivery O2 Flow Rate FiO2 10/21/19 08:05 98 Nasal Cannula 2.0 10/21/19 07:20 97.4 89 20 133/79 (97) 97.4 LABS Lab: Laboratory Tests Test 10/21/19 04:05 10/21/19 07:58 White Blood Count 11.1 x10^3/uL (4.0-11.0) H Red Blood Count 5.24 x10^6/uL (4.30-5.70) Hemoglobin 14.0 g/dL (13.0-17.5) Hematocrit 43.6 % (39.0-53.0) Mean Corpuscular Volume 83 fL (79-100) Mean Corpuscular Hemoglobin 27 pg (25-35) Mean Corpuscular Hemoglobin Concent 32 g/dL (31-37) Red Cell Distribution Width 17.2 % (11.5-14.5) H Platelet Count 332 x10^3/uL (140-400) Neutrophils (%) (Auto) 81 % (31-73) H Lymphocytes (%) (Auto) 6 % (24-48) L Monocytes (%) (Auto) 4 % (0-9) Eosinophils (%) (Auto) 8 % (0-3) H Basophils (%) (Auto) 1 % (0-3) Neutrophils # (Auto) 8.9 x10^3/uL (1.8-7.7) H Lymphocytes # (Auto) 0.7 x10^3/uL (1.0-4.8) L Monocytes # (Auto) 0.5 x10^3/uL (0.0-1.1) Eosinophils # (Auto) 0.9 x10^3/uL (0.0-0.7) H Basophils # (Auto) 0.1 x10^3/uL (0.0-0.2) Sodium Level 140 mmol/L (136-145) 144 mmol/L (136-145) Potassium Level 6.3 mmol/L (3.5-5.1) *H 4.5 mmol/L (3.5-5.1) # Chloride Level 104 mmol/L (98-107) 105 mmol/L (98-107) Carbon Dioxide Level 32 mmol/L (21-32) 27 mmol/L (21-32) Anion Gap 4 (6-14) L 12 (6-14) Blood Urea Nitrogen 26 mg/dL (8-26) 25 mg/dL (8-26) Creatinine 1.7 mg/dL (0.7-1.3) H 1.7 mg/dL (0.7-1.3) H Estimated GFR (Cockcroft-Gault) 49.0 49.0 BUN/Creatinine Ratio 15 (6-20) Glucose Level 108 mg/dL (70-99) H 104 mg/dL (70-99) H Calcium Level 9.5 mg/dL (8.5-10.1) 9.3 mg/dL (8.5-10.1) Total Bilirubin 0.2 mg/dL (0.2-1.0) Aspartate Amino Transferase (AST) 20 U/L (15-37) Alanine Aminotransferase (ALT) 14 U/L (16-63) L Alkaline Phosphatase 146 U/L (46-116) H Troponin I Quantitative < 0.017 ng/mL (0.000-0.055) < 0.017 ng/mL (0.000-0.055) IS-Jkl-H-Type Natriuretic Peptide 8193 pg/mL (0-124) H Total Protein 8.8 g/dL (6.4-8.2) H Albumin 3.7 g/dL (3.4-5.0) Albumin/Globulin Ratio 0.7 (1.0-1.7) L Prothrombin Time 20.3 SEC (11.7-14.0) H Prothrombin Time INR 1.8 (0.8-1.1) H Phosphorus Level 3.5 mg/dL (2.6-4.7) Magnesium Level 2.0 mg/dL (1.8-2.4) Laboratory Tests 10/21/19 04:05 Laboratory Tests 10/21/19 04:05 10/21/19 07:58 ECHOCARDIOGRAM ECHOCARDIOGRAM <Conclusion> Left ventricle systolic function is severely impaired. The Ejection Fraction is 10-15%. Mild aortic regurgitation. Mild mitral regurgitation. Mild tricuspid regurgitation. The PA pressure was estimated at 48 mmHg. There is no evidence of significant pericardial effusion. DATE: 05/19/19 1610 HEART CATH HEART CATH Conclusion 1. Severe single-vessel coronary artery disease involving the left anterior descending artery/diagonal branch, proven physiologically significant based on IFR measurement 2. Successful PCI/drug eluting stent placement to the left anterior descending artery and balloon PTCA to the diagonal branch Recommendations 1. Aspirin 325 mg daily for one month followed by 81 mg daily 2. Plavix 75 mg daily for preferably one year 3. Cardiovascular risk factor modification DATE: 05/18/19 1342 ASSESSMENT/PLAN ASSESSMENT/PLAN 1. Hyperkalemia with underlying aldactone and suspect baseline CKD3: improved after treatment 2. AECOPD: at least 80 pk yr tobacco use in the past unclear baseline per PCP 3. Acute on Chronic systolic CHF: compensated. dyspnea more from COPD. SOA much improved 4. Chronic chirinos cath 2-3 months urology to see on 11/01 Neurogenic bladder? 5. S/P AICD medtronic placed 3 weeks ago at the [facility] 6. CAD-S/P PCI/PREET to LAD and PTCA to diagonal on 05/2019 PMC, clinically stable 7. PAD-Noted prior with extensive thrombus: prompting recent emergent right axillary artery bifemoral bypass, endarterectomy and thrombectomy and bilateral fasciotomy on 05/31/2019. No claudications 8. Chronic anticoagulation with warfarin: being used for severe PAD as above 9. ICM: prior EF at 30% 10. HTN: controlled 11. HLP Recommendations 1. Continue plavix and coumadin. INR goal at 2-3 2. Continue secondary prevention measures. Stop aldactone. Nephrology consult. 3. TTE today and will interrogate device and note optivol and any rhythm changes. 4. Follow with Dr. Siu at [facility] and to follow up with them. 5. PO lasix, Supportive care. 6. He will need a 6 min walk prior to DC KANDACE BARKSDALE MD 10/21/19 1731: CARDIAC CONSULT ASSESSMENT/PLAN ASSESSMENT/PLAN Patient seen and examined. Agree with HEADLINE WRITER's assessment and plan. Acute on chronic systolic heart failure better compensated. 2D echo showed LVEF 25%. CAD status clinically stable. Agree with AICD interrogation. PAD s/p recent surgical revascularization, clinically stable. Continue current treatment for acute COPD exacerbation. Thank you for your consultation. JULI MASSEY APRN Oct 21, 2019 09:44 KANDACE BARKSDALE MD Oct 21, 2019 17:31
[2019-10-21] MEDS: CARVEDILOL 3.125 MG TABLET. PO SCH ×2 (10:05→18:01)
[2019-10-21] MEDS: ISOSORBIDE MONONITRATE ER 30 MG TAB.ER.24H PO SCH (10:05)
[2019-10-21] MEDS: FUROSEMIDE 40 MG TABLET. PO SCH (10:05)
[2019-10-21] MEDS: ASPIRIN CHEWABLE 81 MG TABLET. PO SCH (10:05)
[2019-10-21] MEDS: CLOPIDOGREL BISULFATE 75 MG TABLET PO SCH (10:05)
[2019-10-21 11:21] VITALS: BP 91/53
[2019-10-21 11:45] LABS: BILIRUBIN,URINE NEGATIVE (NEG); CLARITY,URINE CLEAR; COLOR,URINE YELLOW; NITRITE,URINE NEGATIVE (NEG); PROTEIN,URINE NEGATIVE (NEG-TRACE); UROBILINOGEN,URINE 0.2 mg/dL (0.2 mg/dL)
--- NOTE | 2019-10-21 11:52 | NUR ---
SS following for discharge planning. SS reviewed pt chart and discussed with pt RN. Pt is from home and is currently requiring oxygen. Cardiology consulted and pt getting ECHO today. SS will continue to follow for discharge planning.
[2019-10-21 12:00] LABS: BACTERIA,URINE MODERATE /HPF (0-FEW); SQUAMOUS EPITHELIAL CELL,UR FEW /LPF; WBC,URINE 20-40 /HPF (0-4)
--- NOTE | 2019-10-21 14:52 | NUR ---
Pharmacy Warfarin Dosing Note S:Pharmacy consulted to assist with anticoagulation therapy with target INR: 2 -3 O:DIOGO MADRIGAL is a 64 year old M with LV thrombus LABS: Last INR: 1.8 Last HGB: 14 Last HCT: 43.6 Last PLT: 332 Vitamin K given: N A:INR of 1.8 is below desired range. Target range for this patient is: 2 -3 P: Warfarin dose: 2 mg Today at 1600 Bridge Therapy: None Next INR due tomorrow Pharmacy anticoagulation service will continue to follow. Komal Gould RPH, 10/21/19 [id number]
[2019-10-21 15:00] VITALS: BP 109/60
--- NOTE | 2019-10-21 15:12 | CARD ---
MR#: [id number] Date of Study: 10/21/2019 Ordering Physician: JULI MASSEY, Referring Physician: JLUI MASSEY Tech: Sabrina Asnecio RDCS APPROVED REPORT EXAM: LIMITED Two-dimensional and M-mode echocardiogram. Other Information Quality : AverageHR: 82bpm Rhythm : NSR INDICATION Cardiomyopathy 2D DIMENSIONS Left Atrium(2D)3.3 (1.6-4.0cm)IVSd1.4 (0.7-1.1cm) Aortic Root(2D)3.3 (2.0-3.7cm)LVDd4.3 (3.9-5.9cm) LVOT Diameter2.3 (1.8-2.4cm)PWd1.3 (0.7-1.1cm) LVDs3.1 (2.5-4.0cm)FS (%) 28.0 % SV45.3 ml LEFT VENTRICLE Limited ECHO for LV function. The left ventricle is normal size. There is mild concentric left ventr icular hypertrophy. The ejection fraction is severely impaired. Left ventricular ejection fraction i s estimated 25%. There is severe global hypokinesis of the left ventricle. GREAT VESSELS Limited study. PERICARDIAL EFFUSION There is no evidence of significant pericardial effusion. Critical Notification Critical Value: No <Conclusion> Limited ECHO for LV function. The left ventricle is normal size. The ejection fraction is severely impaired. Left ventricular ejection fraction is estimated 25%. There is severe global hypokinesis of the left ventricle. There is mild concentric left ventricular hypertrophy. Signed by : Gabino Hernandez MD Electronically Approved : 10/21/2019 15:11:27
[2019-10-21] MEDS ORDERED: WARFARIN 2 MG TABLET. PO ONE (16:00)
--- NOTE | 2019-10-21 16:03 | PDOC2 ---
CONSULT Date of Consult Date of Consult DATE: 10/21/19 TIME: 15:55 Reason for Consult Reason for Consult: RENAL FAILURE Referring Physician Referring Physician: EROS Identification/Chief Complaint Chief Complaint SOB Source Source: Chart review, Patient History of Present Illness Reason for Visit: THIS IS A 64 YR OLD WM WITH SOB. ALSO HAD CHEST PRESSURE. ALSO HAS HX OF COPD AND CAD. USUALLY [facility] CARE AT THE [facility]. CURRENTLY UNDERGOING CARDIOLOGY EVALUATION. ON ADMIT K OF 6.3 AND CR OF 1.7. HAS HX OF BLADDER ATONY AND HAS A CHRONIC INDWELLING MEDINA CATHETER. LAST CHANGED A MONTH AGO AT THE [facility] WHERE HE NORMALLY FOLLOWS. HE IS AWARE THAT HE HAS CKD STAGE 3. NO NEPHROTOXINS NOTED. NO HEMODYNAMIC INSTABILITY. NO OTHER HX Past Medical History Cardiovascular: CAD, CHF, HTN, AR, Other Pulmonary: Pneumonia CENTRAL NERVOUS SYSTEM: CVA Heme/Onc: Anemia NOS Musculoskeletal: Osteoarthritis Renal/: Chronic renal insuff, UTI, Other Endocrine: No pertinent hx Past Surgical History Past Surgical History: Other (fem pop, cardiac stent, AICD) Family History Family History: Hypertension Social History No ALCOHOL: none Drugs: None Lives: Alone Current Problem List Problem List Problems Medical Problems: (1) Chronic renal disease Status: Acute (2) COPD exacerbation Status: Acute (3) Hyperkalemia Status: Acute (4) Hypoxemia Status: Acute Current Medications Current Medications Current Medications Albuterol Sulfate (Ventolin Neb Soln) 5 mg 1X ONCE NEB Last administered on 10/21/19at 02:45; Start 10/21/19 at 02:15; Stop 10/21/19 at 02:16; Status DC Albuterol/ Ipratropium (Duoneb) 3 ml 1X ONCE NEB Last administered on 10/21/19at 02:45; Start 10/21/19 at 02:15; Stop 10/21/19 at 02:16; Status DC Sodium Polystyrene Sulfonate (Kayexalate) 15 gm 1X ONCE PO Last administered on 10/21/19at 05:11; Start 10/21/19 at 05:00; Stop 10/21/19 at 05:01; Status DC Dextrose (Dextrose 50%-Water Syringe) 25 gm 1X ONCE IV Last administered on 10/21/19at 05:50; Start 10/21/19 at 05:00; Stop 10/21/19 at 05:01; Status DC Insulin Human Regular (HumuLIN R VIAL) 10 unit 1X ONCE IV Last administered on 10/21/19at 05:11; Start 10/21/19 at 05:00; Stop 10/21/19 at 05:01; Status DC Albuterol/ Ipratropium (Duoneb) 3 ml RTQID NEB ; Start 10/21/19 at 08:00; Stop 10/21/19 at 07:33; Status DC Albuterol Sulfate (Ventolin Neb Soln) 3 mg PRN QID PRN NEB SHORTNESS OF BREATH Last administered on 10/21/19at 11:16; Start 10/21/19 at 07:15 Saliva Substitute (Biotene Moisturizing Mouth) 2 spray PRN Q15MIN PRN PO DRY MOUTH; Start 10/21/19 at 07:45 Aspirin (Aspirin Chewable) 81 mg DAILY PO Last administered on 10/21/19at 10:05; Start 10/21/19 at 09:00 Atorvastatin Calcium (Lipitor) 40 mg HS PO ; Start 10/21/19 at 21:00 Carvedilol (Coreg) 3.125 mg BIDWMEALS PO Last administered on 10/21/19at 10:05; Start 10/21/19 at 08:00 Clopidogrel Bisulfate (Plavix) 75 mg DAILYWBKFT PO Last administered on 10/21/19at 10:05; Start 10/21/19 at 08:00 Furosemide (Lasix) 40 mg DAILY PO Last administered on 10/21/19at 10:05; Start 10/21/19 at 09:00 Isosorbide Mononitrate (Imdur) 30 mg DAILY PO Last administered on 10/21/19at 10:05; Start 10/21/19 at 09:00 Warfarin Sodium (Coumadin Per Pharmacy) 1 each PRN DAILY PRN MC SEE COMMENTS Last administered on 10/21/19at 14:40; Start 10/21/19 at 07:45 Warfarin Sodium (Coumadin) 2 mg 1X WARF ONCE PO ; Start 10/21/19 at 16:00; Stop 10/21/19 at 16:01 Active Scripts Active Isosorbide Mononitrate Er (Isosorbide Mononitrate) 30 Mg Tab.er.24h 1 Tab PO DAILY 30 Days Furosemide 20 Mg Tablet 40 Mg PO DAILY 30 Days Clopidogrel (Clopidogrel Bisulfate) 75 Mg Tablet 75 Mg PO DAILYWBKFT 30 Days Reported Coreg (Carvedilol) 3.125 Mg Tablet 3.125 Mg PO BIDWMEALS Coreg (Carvedilol) 3.125 Mg Tablet 3.125 Mg PO BIDWMEALS Aspirin 81 Mg Tab.chew 81 Mg PO DAILY Atorvastatin Calcium 40 Mg Tablet 40 Mg PO HS Allergies Allergies: Coded Allergies: No Known Drug Allergies (Unverified , 09/17/17) ROS General: YES: Fatigue, Malaise, Appetite PSYCHOLOGICAL ROS: YES: Anxiety, Depression ALLERGY AND IMMUNOLOGY: YES: Seasonal Allergies Respiratory: YES: Cough Gastrointestinal: Yes Constipation Genitourinary: YES Retention, YES Other Musculoskeletal: Yes Muscular Weakness Neurological: Yes Weakness Skin: Yes Dry Skin Physical Exam General: Alert, Oriented X3, Cooperative, No acute distress HEENT: Atraumatic, PERRLA Lungs: Clear to auscultation Heart: Regular rate Abdomen: Normal bowel sounds, Soft, No tenderness Skin: No rashes Neuro: Normal speech, Cranial nerves 3-12 NL Psych/Mental Status: Mental status NL, Mood NL MUSCULOSKELETAL: No joint tenderness, No deformity, No swelling Vitals VITALS Vital Signs Date Time Temp Pulse Resp B/P (MAP) Pulse Ox O2 Delivery O2 Flow Rate FiO2 10/21/19 15:00 98.0 80 20 109/60 (76) 98 Nasal Cannula 1.0 98.0 Labs Labs Laboratory Tests Test 10/21/19 04:05 10/21/19 07:58 10/21/19 10:00 White Blood Count 11.1 x10^3/uL (4.0-11.0) Red Blood Count 5.24 x10^6/uL (4.30-5.70) Hemoglobin 14.0 g/dL (13.0-17.5) Hematocrit 43.6 % (39.0-53.0) Mean Corpuscular Volume 83 fL (79-100) Mean Corpuscular Hemoglobin 27 pg (25-35) Mean Corpuscular Hemoglobin Concent 32 g/dL (31-37) Red Cell Distribution Width 17.2 % (11.5-14.5) Platelet Count 332 x10^3/uL (140-400) Neutrophils (%) (Auto) 81 % (31-73) Lymphocytes (%) (Auto) 6 % (24-48) Monocytes (%) (Auto) 4 % (0-9) Eosinophils (%) (Auto) 8 % (0-3) Basophils (%) (Auto) 1 % (0-3) Neutrophils # (Auto) 8.9 x10^3/uL (1.8-7.7) Lymphocytes # (Auto) 0.7 x10^3/uL (1.0-4.8) Monocytes # (Auto) 0.5 x10^3/uL (0.0-1.1) Eosinophils # (Auto) 0.9 x10^3/uL (0.0-0.7) Basophils # (Auto) 0.1 x10^3/uL (0.0-0.2) Sodium Level 140 mmol/L (136-145) 144 mmol/L (136-145) Potassium Level 6.3 mmol/L (3.5-5.1) 4.5 mmol/L (3.5-5.1) Chloride Level 104 mmol/L (98-107) 105 mmol/L (98-107) Carbon Dioxide Level 32 mmol/L (21-32) 27 mmol/L (21-32) Anion Gap 4 (6-14) 12 (6-14) Blood Urea Nitrogen 26 mg/dL (8-26) 25 mg/dL (8-26) Creatinine 1.7 mg/dL (0.7-1.3) 1.7 mg/dL (0.7-1.3) Estimated GFR (Cockcroft-Gault) 49.0 49.0 BUN/Creatinine Ratio 15 (6-20) Glucose Level 108 mg/dL (70-99) 104 mg/dL (70-99) Calcium Level 9.5 mg/dL (8.5-10.1) 9.3 mg/dL (8.5-10.1) Total Bilirubin 0.2 mg/dL (0.2-1.0) Aspartate Amino Transf (AST/SGOT) 20 U/L (15-37) Alanine Aminotransferase (ALT/SGPT) 14 U/L (16-63) Alkaline Phosphatase 146 U/L (46-116) Troponin I Quantitative < 0.017 ng/mL (0.000-0.055) < 0.017 ng/mL (0.000-0.055) ON-Pxp-L-Type Natriuretic Peptide 8193 pg/mL (0-124) Total Protein 8.8 g/dL (6.4-8.2) Albumin 3.7 g/dL (3.4-5.0) Albumin/Globulin Ratio 0.7 (1.0-1.7) Prothrombin Time 20.3 SEC (11.7-14.0) Prothromb Time International Ratio 1.8 (0.8-1.1) Phosphorus Level 3.5 mg/dL (2.6-4.7) Magnesium Level 2.0 mg/dL (1.8-2.4) Thyroid Stimulating Hormone (TSH) 1.024 uIU/mL (0.358-3.74) Urine Collection Type Unknown Urine Color Yellow Urine Clarity Clear Urine pH 5.0 (<5.0-8.0) Urine Specific [place] 1.010 (1.000-1.030) Urine Protein Negative mg/dL (NEG-TRACE) Urine Glucose (UA) Negative mg/dL (NEG) Urine Ketones (Stick) Negative mg/dL (NEG) Urine Blood Moderate (NEG) Urine Nitrite Negative (NEG) Urine Bilirubin Negative (NEG) Urine Urobilinogen Dipstick 0.2 mg/dL (0.2 mg/dL) Urine Leukocyte Esterase Large (NEG) Urine RBC 6-10 /HPF (0-2) Urine WBC 20-40 /HPF (0-4) Urine Squamous Epithelial Cells Few /LPF Urine Bacteria Moderate /HPF (0-FEW) Laboratory Tests Test 10/21/19 04:05 10/21/19 07:58 10/21/19 10:00 White Blood Count 11.1 x10^3/uL (4.0-11.0) Red Blood Count 5.24 x10^6/uL (4.30-5.70) Hemoglobin 14.0 g/dL (13.0-17.5) Hematocrit 43.6 % (39.0-53.0) Mean Corpuscular Volume 83 fL (79-100) Mean Corpuscular Hemoglobin 27 pg (25-35) Mean Corpuscular Hemoglobin Concent 32 g/dL (31-37) Red Cell Distribution Width 17.2 % (11.5-14.5) Platelet Count 332 x10^3/uL (140-400) Neutrophils (%) (Auto) 81 % (31-73) Lymphocytes (%) (Auto) 6 % (24-48) Monocytes (%) (Auto) 4 % (0-9) Eosinophils (%) (Auto) 8 % (0-3) Basophils (%) (Auto) 1 % (0-3) Neutrophils # (Auto) 8.9 x10^3/uL (1.8-7.7) Lymphocytes # (Auto) 0.7 x10^3/uL (1.0-4.8) Monocytes # (Auto) 0.5 x10^3/uL (0.0-1.1) Eosinophils # (Auto) 0.9 x10^3/uL (0.0-0.7) Basophils # (Auto) 0.1 x10^3/uL (0.0-0.2) Sodium Level 140 mmol/L (136-145) 144 mmol/L (136-145) Potassium Level 6.3 mmol/L (3.5-5.1) 4.5 mmol/L (3.5-5.1) Chloride Level 104 mmol/L (98-107) 105 mmol/L (98-107) Carbon Dioxide Level 32 mmol/L (21-32) 27 mmol/L (21-32) Anion Gap 4 (6-14) 12 (6-14) Blood Urea Nitrogen 26 mg/dL (8-26) 25 mg/dL (8-26) Creatinine 1.7 mg/dL (0.7-1.3) 1.7 mg/dL (0.7-1.3) Estimated GFR (Cockcroft-Gault) 49.0 49.0 BUN/Creatinine Ratio 15 (6-20) Glucose Level 108 mg/dL (70-99) 104 mg/dL (70-99) Calcium Level 9.5 mg/dL (8.5-10.1) 9.3 mg/dL (8.5-10.1) Total Bilirubin 0.2 mg/dL (0.2-1.0) Aspartate Amino Transf (AST/SGOT) 20 U/L (15-37) Alanine Aminotransferase (ALT/SGPT) 14 U/L (16-63) Alkaline Phosphatase 146 U/L (46-116) Troponin I Quantitative < 0.017 ng/mL (0.000-0.055) < 0.017 ng/mL (0.000-0.055) YR-Gdw-S-Type Natriuretic Peptide 8193 pg/mL (0-124) Total Protein 8.8 g/dL (6.4-8.2) Albumin 3.7 g/dL (3.4-5.0) Albumin/Globulin Ratio 0.7 (1.0-1.7) Prothrombin Time 20.3 SEC (11.7-14.0) Prothromb Time International Ratio 1.8 (0.8-1.1) Phosphorus Level 3.5 mg/dL (2.6-4.7) Magnesium Level 2.0 mg/dL (1.8-2.4) Thyroid Stimulating Hormone (TSH) 1.024 uIU/mL (0.358-3.74) Urine Collection Type Unknown Urine Color Yellow Urine Clarity Clear Urine pH 5.0 (<5.0-8.0) Urine Specific [place] 1.010 (1.000-1.030) Urine Protein Negative mg/dL (NEG-TRACE) Urine Glucose (UA) Negative mg/dL (NEG) Urine Ketones (Stick) Negative mg/dL (NEG) Urine Blood Moderate (NEG) Urine Nitrite Negative (NEG) Urine Bilirubin Negative (NEG) Urine Urobilinogen Dipstick 0.2 mg/dL (0.2 mg/dL) Urine Leukocyte Esterase Large (NEG) Urine RBC 6-10 /HPF (0-2) Urine WBC 20-40 /HPF (0-4) Urine Squamous Epithelial Cells Few /LPF Urine Bacteria Moderate /HPF (0-FEW) Images Images INDICATION: Reason: sob / Spl. Instructions: / History: COMPARISON: June 08, 2019 FINDINGS: Single view of chest obtained. Cardiac silhouette is similar to prior. AICD with 2 leads is now visualized. There is also a apparent stent projecting over the cardiac silhouette on the left. Blunting of the right costophrenic angle without well-defined airspace consolidation. IMPRESSION: * Blunting of the right costophrenic angle which could be secondary to small pleural effusion or pleural thickening. Electronically signed by: Devante Ramirez MD (10/21/2019 3:09 AM) [id number] Assessment/Plan Assessment/Plan IMP CKD STAGE 3-CR STABLE AT 1.7 HYPERKALEMIA AECOPD URINARY RETENTION CM WITH EF OF 30% HX OF CAD HTN HX PLAN CARDIOLOGY EVALUATION CONSIDER ARB PO LASIX NOW AGREE WITH HOLDING ALDCATONE NOW WILL FOLLOW ANISA SANTILLAN MD Oct 21, 2019 16:03
[2019-10-21 19:00] VITALS: BP 127/57
[2019-10-21] MEDS: ATORVASTATIN CALCIUM 40 MG TABLET. PO SCH (21:27)
[2019-10-21 23:09] VITALS: BP 140/77
[2019-10-22 02:34] VITALS: BP 141/75
[2019-10-22 04:52] LABS: PROTHROMBIN TIME PATIENT 21.6 SEC (11.7-14.0)
[2019-10-22 07:55] VITALS: BP 127/62
[2019-10-22] MEDS ORDERED: BUDESONIDE 0.5 MG/2 ML NEBU. NEB ONE (09:00)
[2019-10-22] MEDS ORDERED: IPRATRPIUM/ALBUTEROL 0.5/2.5MG 3 ML NEBU. NEB ONE (09:00)
--- NOTE | 2019-10-22 09:48 | NUR ---
SS following for discharge planning. SS reviewed pt chart and discussed with pt RN. Pt is from home and is currently requiring oxygen. PT/OT ordered. SS will continue to follow for discharge planning.
[2019-10-22] MEDS: ASPIRIN CHEWABLE 81 MG TABLET. PO SCH (10:12)
[2019-10-22] MEDS: FUROSEMIDE 40 MG TABLET. PO SCH (10:13)
[2019-10-22] MEDS: CLOPIDOGREL BISULFATE 75 MG TABLET PO SCH (10:13)
[2019-10-22] MEDS: CARVEDILOL 3.125 MG TABLET. PO SCH ×2 (10:14→17:00)
[2019-10-22] MEDS: ISOSORBIDE MONONITRATE ER 30 MG TAB.ER.24H PO SCH (10:15)
[2019-10-22 10:25] VITALS: BP 128/71
[2019-10-22] MEDS ORDERED: cefTRIAXone IV Push 1 GM VIAL. IVP SCH (10:45)
--- NOTE | 2019-10-22 11:04 | PDOC ---
Renal-Progress Notes Subjective Notes Notes NO NEW COMPLAINTS History of Present Illness Hx of present illness STABLE Vitals Vitals Vital Signs Date Time Temp Pulse Resp B/P (MAP) Pulse Ox O2 Delivery O2 Flow Rate FiO2 10/22/19 10:25 98.1 100 18 128/71 (90) 96 Nasal Cannula 1.0 98.1 Weight Weight [ ] I.O. Intake and Output Intake and Output 10/22/19 07:00 Intake Total 820 ml Output Total 2100 ml Balance -1280 ml Intake Oral 820 ml Output Urine Total 2100 ml # Bowel Movements 1 Labs Labs Laboratory Tests Test 10/22/19 04:20 Prothrombin Time 21.6 SEC (11.7-14.0) Prothromb Time International Ratio 1.9 (0.8-1.1) Micro Micro Microbiology 10/21/19 Urine Culture - Preliminary, Resulted Review of Systems Constitutional: yes: alert Ears/Nose/Throat: Yes: no symptom reported Eyes: Yes: no symptom reported Pulmonary: Yes no symptom reported Cardiovascular: Yes no symptom reported Gastrointestional: Yes: no symptom reported Genitourinary: Yes: no symptom reported Musculoskeletal: Yes: no symptom reported Skin: Yes no symptom reported Psychiatric/Neurological: Yes: no symptom reported Endocrine: Yes: no symptom reported Physical Exam General Appearance: no apparent distress Skin: warm Heart: S1S2, RRR Abdomen: soft, bowel sounds present Genitourinary: bladder flat Extremities: pulses present Neurology: alert, oriented Musculoskeletal: Osteoarthritis Assessment Assessment IMP CKD STAGE 3-CR STABLE AT 1.7 HYPERKALEMIA-RESOLVED AECOPD URINARY RETENTION CM WITH EF OF 30% HX OF CAD HTN HX PLAN CARDIOLOGY EVALUATION CONSIDER ARB PO LASIX AGREE WITH HOLDING ALDCATONE NOW WILL FOLLOW ANISA SANTILLAN MD Oct 22, 2019 11:04
--- NOTE | 2019-10-22 11:12 | PDOC ---
JULI MASSEY CLEAT THROWER 10/22/19 1112: CARDIO Progress Notes Date and Time Date of Service 10/22/2019 Time of Evaluation 1000 Subjective Subjective: No Chest Pain, No shortness of breath, No Palpitations Vitals Vitals Vital Signs Date Time Temp Pulse Resp B/P (MAP) Pulse Ox O2 Delivery O2 Flow Rate FiO2 10/22/19 10:25 98.1 100 18 128/71 (90) 96 Nasal Cannula 1.0 98.1 Weight Weight [ ] Input and Output Intake and Output Intake and Output 10/22/19 07:00 Intake Total 820 ml Output Total 2100 ml Balance -1280 ml Intake Oral 820 ml Output Urine Total 2100 ml # Bowel Movements 1 Laboratory Labs Laboratory Tests Test 10/22/19 04:20 Prothrombin Time 21.6 SEC (11.7-14.0) Prothromb Time International Ratio 1.9 (0.8-1.1) Microbiology Micro Microbiology 10/21/19 Urine Culture - Preliminary, Resulted Physical Exam HEENT: Neck Supple W Full Motion Chest: Symmetric LUNGS: Other (diminished) Heart: RRR (SR) Abdomen: Soft N/T Extremities: No Edema, No Calf Tenderness Neurology: alert, oriented, follow commands Assessment Assessment 1. Hyperkalemia with underlying aldactone and suspect baseline CKD3: improved after treatment. Nephrology following 2. AECOPD: at least 80 pk yr tobacco use in the past unclear baseline per PCP 3. Chronic systolic CHF: compensated. dyspnea more from COPD. SOA improved 4. Chronic chirinos cath 2-3 months urology to see on 11/01 Neurogenic bladder? 5. S/P AICD medtronic placed 3 weeks ago at the [place]. Interrogation revealed AAIR<->DDDR low rate 60, no arrhythmias Battery life 10.8 yrs. Thoracic impedance increasing correlating with low volume 6. CAD-S/P PCI/PREET to LAD and PTCA to diagonal on 05/2019 PMC, clinically stable 7. PAD-Noted prior with extensive thrombus: prompting recent emergent right axillary artery bifemoral bypass, endarterectomy and thrombectomy and bilateral fasciotomy on 05/31/2019. No claudications 8. Chronic anticoagulation with warfarin: being used for severe PAD as above. INR 1.9 9. ICM: EF 25% 10. HTN: controlled 11. HLP Recommendations 1. Continue plavix and coumadin. INR goal at 2-3 2. Continue secondary prevention measures. Stop aldactone. Future ARB. BMP today 3. Pulmonary consult pending 4. Follow with Dr. Siu at [place] cardiology and to follow up with them. 5. PO lasix, Supportive care. 2L FR 6. He will need a 6 min walk prior to DC Justicifation of Admission Dx: Justifications for Admission: Justification of Admission Dx: Yes CHF: Sev. Electrolyte Abnormal KANDACE BARKSDALE MD 10/23/19 0900: CARDIO Progress Notes Assessment Assessment Patient seen and examined 10/22/19. 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 Acute on chronic systolic heart failure better compensated. Continue lasix PO. 2D echo showed LVEF 25%. CAD status clinically stable. AICD interrogation showed normal function. No VT/VF recorded PAD s/p recent surgical revascularization, clinically stable. Continue warfarin. Continue current treatment for acute COPD exacerbation. Follow up with primary rubber goods finisher at [place] upon DC. JULI MASSEY APRN Oct 22, 2019 11:12 KANDACE BARKSDALE MD Oct 23, 2019 09:00
[2019-10-22 11:15] LABS: CALCIUM 8.7 mg/dL (8.5-10.1); GFR 40.7; MAGNESIUM 1.8 mg/dL (1.8-2.4); POTASSIUM 4.4 mmol/L (3.5-5.1)
[2019-10-22] MEDS: IPRATRPIUM/ALBUTEROL 0.5/2.5MG 3 ML NEBU. NEB SCH ×3 (11:20→19:55)
--- NOTE | 2019-10-22 11:22 | CONS ---
DATE OF CONSULTATION: PULMONARY CONSULTATION ATTENDING PHYSICIAN: Cedrick Torres MD REASON FOR CONSULTATION: Dyspnea. HISTORY OF PRESENT ILLNESS: The patient is a 64-year-old male who has been a smoker for about 30 years. He no longer smokes cigarettes. He came in to the hospital with increasing dyspnea. He also had a cough with some beige-colored sputum. No chest pain; no headaches; no nausea, vomiting or diarrhea. The patient denies any history of DVT or pulmonary embolism. He is not on home oxygen, currently requiring 2 liters. His chest x-ray revealed mildly elevated right hemidiaphragm with pleural thickening, but no definite consolidation seen. Venous Dopplers had no evidence of any DVT. He appeared to be tachypneic when I saw the patient. Consultation requested for further evaluation and management. No headaches, no nausea or vomiting, no diarrhea, no dysuria, no focal weakness. PAST MEDICAL HISTORY: History of CAD, CHF, hypertension, LA and COPD, unknown FEV1, history of pneumonia, CVA, UTI and chronic renal insufficiency. PAST SURGICAL HISTORY: Fem-pop cardiac stent, AICD. FAMILY HISTORY: Heart disease and hypertension. SOCIAL HISTORY: Smoked for about 30 years before quitting. No history of alcohol use. ALLERGIES: None. MEDICATIONS: Reviewed as listed in the MRAD including IV steroids, DuoNebs and Pulmicort. He is on warfarin as well. REVIEW OF SYSTEMS: Twelve-point system obtained. Pertinent positives discussed in my present illness, otherwise noncontributory. All systems that were negative were reviewed as well. PHYSICAL EXAMINATION: VITAL SIGNS: Blood pressure 128/71, he is afebrile, pulse ox 96% on 2 liters. He is mildly tachypneic. HEENT: Sclerae nonicteric. NECK: Supple. LUNGS: With expiratory wheezes bilaterally. CARDIOVASCULAR: With a regular rate. ABDOMEN: Soft, nontender. EXTREMITIES: With no pitting edema. LABORATORY DATA: Reviewed. White cell count 11.1, hemoglobin 14.0 and platelets are 332. BUN 25, creatinine 1.7. INR 1.9. IMPRESSION: 1. Dyspnea with acute hypoxic respiratory failure secondary to acute exacerbation of chronic obstructive pulmonary disease. 2. Acute bronchitis. No definite consolidation seen on the chest x-ray. 3. Abnormal chest x-ray with mild pleural thickening in the right lower chest and elevated right hemidiaphragm. 4. Chronic anticoagulation for PVD. h/o Aortofem bypass RECOMMENDATIONS: 1. Discussed with the patient and RN. At this time, I would increase the nebulizer to every 4 hours and add Pulmicort. 2. Add IV Solu-Medrol. 3. Obtain arterial blood gases. 4. Add empiric antibiotic. 5. Anticoagulation per PCP. 6. Discussed with RN. We will follow along with you. JERRY KING MD DR: NATHANIEL/brittaney JOB#: [id number] / [id number] LISA
[2019-10-22 11:33] LABS: BASE EXCESS COOX 3 mmol/L (-3-3); HCO3 COOX 28 mmol/L (21-28); METHEMOGLOBIN 0.4 % (0.0-1.9); OXYHEMOGLOBIN 95.9 %; PCO2 COOX 48 mmHg (35-46); PO2 COOX 96 mmHg (65-108); SAT O2 COOX 97 % (92-99)
[2019-10-22] MEDS ORDERED: IPRATRPIUM/ALBUTEROL 0.5/2.5MG 3 ML NEBU. NEB SCH (12:00)
--- NOTE | 2019-10-22 13:01 | NUR ---
Pharmacy Warfarin Dosing Note S: Pharmacy consulted to assist with anticoagulation therapy O: DIOGO MADRIGAL is a 64 year old M with LV thrombus LABS: Last INR: 1.9 Last HGB: 14 Last HCT: 43.6 Last PLT: 332 Last dose of 2 mg given on 10/21/19 at 1801 Vitamin K given: N A:INR of 1.9 is below desired range. Target range for this patient is: 2 -3 P: Warfarin dose: 2 mg Today at 1600 Bridge Therapy: None Next INR due tomorrow Pharmacy anticoagulation service will continue to follow. Komal Gould RPH, 10/22/19 1302
[2019-10-22] MEDS: methylPREDNISolone SOD SUCC PF 40 MG/ML VIAL. IV SCH ×2 (13:16→20:15)
--- NOTE | 2019-10-22 13:38 | PDOC ---
PROGRESS NOTES Chief Complaint Chief Complaint acute shortness of breath with chest pressure, pain angina, r/o ACS, cardiology consult hx PVD, blood clots, check US legs, check INR, cont coumadin, consider PE for cause of new dyspnea, his creatinine is too high for CT angio. CHF, acute on chronic systolic, appears dry, EF 25% hyperkalemia, insulin and kayexalate given in ER, recheck labs, phos, mag, COPD, with wheeze, History of Present Illness History of Present Illness feels better, still wheezing, consult pulm, add pulm meds schduled, optimize cardiac, renal following, start PT and OT Vitals Vitals Vital Signs Date Time Temp Pulse Resp B/P (MAP) Pulse Ox O2 Delivery O2 Flow Rate FiO2 10/22/19 11:24 100 Nasal Cannula 1.0 10/22/19 10:25 98.1 100 18 128/71 (90) 98.1 Physical Exam General: Alert, Oriented X3, Cooperative, No acute distress Heart: Regular rate Lungs: Wheezing, Other (less labored, no crackles, wheeze is right base) Abdomen: Normal bowel sounds, Soft, No tenderness Extremities: No cyanosis, No edema Skin: No rashes Labs LABS Laboratory Tests Test 10/22/19 04:20 10/22/19 11:20 Prothrombin Time 21.6 SEC (11.7-14.0) Prothromb Time International Ratio 1.9 (0.8-1.1) Sodium Level 141 mmol/L (136-145) Potassium Level 4.4 mmol/L (3.5-5.1) Chloride Level 103 mmol/L (98-107) Carbon Dioxide Level 31 mmol/L (21-32) Anion Gap 7 (6-14) Blood Urea Nitrogen 37 mg/dL (8-26) Creatinine 2.0 mg/dL (0.7-1.3) Estimated GFR (Cockcroft-Gault) 40.7 Glucose Level 92 mg/dL (70-99) Calcium Level 8.7 mg/dL (8.5-10.1) Magnesium Level 1.8 mg/dL (1.8-2.4) O2 Saturation 97 % (92-99) Arterial Blood pH 7.39 (7.35-7.45) Arterial Blood pCO2 at Patient Temp 48 mmHg (35-46) Arterial Blood pO2 at Patient Temp 96 mmHg (65-108) Arterial Blood HCO3 28 mmol/L (21-28) Arterial Blood Base Excess 3 mmol/L (-3-3) Oxyhemoglobin 95.9 % Methemoglobin 0.4 % (0.0-1.9) Carbon Monoxide, Quantitative 0.3 % (0.0-1.9) FiO2 1 lpm nc Assessment and Plan Assessmemt and Plan Problems Medical Problems: (1) Chronic renal disease Status: Acute (2) COPD exacerbation Status: Acute (3) Hyperkalemia Status: Acute (4) Hypoxemia Status: Acute Comment Review of Relevant I have reviewed the following items dunia (where applicable) has been applied. Labs Laboratory Tests Test 10/21/19 04:05 10/21/19 07:58 10/21/19 10:00 10/22/19 04:20 White Blood Count 11.1 x10^3/uL (4.0-11.0) Red Blood Count 5.24 x10^6/uL (4.30-5.70) Hemoglobin 14.0 g/dL (13.0-17.5) Hematocrit 43.6 % (39.0-53.0) Mean Corpuscular Volume 83 fL (79-100) Mean Corpuscular Hemoglobin 27 pg (25-35) Mean Corpuscular Hemoglobin Concent 32 g/dL (31-37) Red Cell Distribution Width 17.2 % (11.5-14.5) Platelet Count 332 x10^3/uL (140-400) Neutrophils (%) (Auto) 81 % (31-73) Lymphocytes (%) (Auto) 6 % (24-48) Monocytes (%) (Auto) 4 % (0-9) Eosinophils (%) (Auto) 8 % (0-3) Basophils (%) (Auto) 1 % (0-3) Neutrophils # (Auto) 8.9 x10^3/uL (1.8-7.7) Lymphocytes # (Auto) 0.7 x10^3/uL (1.0-4.8) Monocytes # (Auto) 0.5 x10^3/uL (0.0-1.1) Eosinophils # (Auto) 0.9 x10^3/uL (0.0-0.7) Basophils # (Auto) 0.1 x10^3/uL (0.0-0.2) Sodium Level 140 mmol/L (136-145) 144 mmol/L (136-145) 141 mmol/L (136-145) Potassium Level 6.3 mmol/L (3.5-5.1) 4.5 mmol/L (3.5-5.1) 4.4 mmol/L (3.5-5.1) Chloride Level 104 mmol/L (98-107) 105 mmol/L (98-107) 103 mmol/L (98-107) Carbon Dioxide Level 32 mmol/L (21-32) 27 mmol/L (21-32) 31 mmol/L (21-32) Anion Gap 4 (6-14) 12 (6-14) 7 (6-14) Blood Urea Nitrogen 26 mg/dL (8-26) 25 mg/dL (8-26) 37 mg/dL (8-26) Creatinine 1.7 mg/dL (0.7-1.3) 1.7 mg/dL (0.7-1.3) 2.0 mg/dL (0.7-1.3) Estimated GFR (Cockcroft-Gault) 49.0 49.0 40.7 BUN/Creatinine Ratio 15 (6-20) Glucose Level 108 mg/dL (70-99) 104 mg/dL (70-99) 92 mg/dL (70-99) Calcium Level 9.5 mg/dL (8.5-10.1) 9.3 mg/dL (8.5-10.1) 8.7 mg/dL (8.5-10.1) Total Bilirubin 0.2 mg/dL (0.2-1.0) Aspartate Amino Transf (AST/SGOT) 20 U/L (15-37) Alanine Aminotransferase (ALT/SGPT) 14 U/L (16-63) Alkaline Phosphatase 146 U/L (46-116) Troponin I Quantitative < 0.017 ng/mL (0.000-0.055) < 0.017 ng/mL (0.000-0.055) UJ-Smg-L-Type Natriuretic Peptide 8193 pg/mL (0-124) Total Protein 8.8 g/dL (6.4-8.2) Albumin 3.7 g/dL (3.4-5.0) Albumin/Globulin Ratio 0.7 (1.0-1.7) Prothrombin Time 20.3 SEC (11.7-14.0) 21.6 SEC (11.7-14.0) Prothromb Time International Ratio 1.8 (0.8-1.1) 1.9 (0.8-1.1) Phosphorus Level 3.5 mg/dL (2.6-4.7) Magnesium Level 2.0 mg/dL (1.8-2.4) 1.8 mg/dL (1.8-2.4) Thyroid Stimulating Hormone (TSH) 1.024 uIU/mL (0.358-3.74) Urine Collection Type Unknown Urine Color Yellow Urine Clarity Clear Urine pH 5.0 (<5.0-8.0) Urine Specific Mccammon 1.010 (1.000-1.030) Urine Protein Negative mg/dL (NEG-TRACE) Urine Glucose (UA) Negative mg/dL (NEG) Urine Ketones (Stick) Negative mg/dL (NEG) Urine Blood Moderate (NEG) Urine Nitrite Negative (NEG) Urine Bilirubin Negative (NEG) Urine Urobilinogen Dipstick 0.2 mg/dL (0.2 mg/dL) Urine Leukocyte Esterase Large (NEG) Urine RBC 6-10 /HPF (0-2) Urine WBC 20-40 /HPF (0-4) Urine Squamous Epithelial Cells Few /LPF Urine Bacteria Moderate /HPF (0-FEW) Test 10/22/19 11:20 O2 Saturation 97 % (92-99) Arterial Blood pH 7.39 (7.35-7.45) Arterial Blood pCO2 at Patient Temp 48 mmHg (35-46) Arterial Blood pO2 at Patient Temp 96 mmHg (65-108) Arterial Blood HCO3 28 mmol/L (21-28) Arterial Blood Base Excess 3 mmol/L (-3-3) Oxyhemoglobin 95.9 % Methemoglobin 0.4 % (0.0-1.9) Carbon Monoxide, Quantitative 0.3 % (0.0-1.9) FiO2 1 lpm nc Laboratory Tests Test 10/22/19 04:20 10/22/19 11:20 Prothrombin Time 21.6 SEC (11.7-14.0) Prothromb Time International Ratio 1.9 (0.8-1.1) Sodium Level 141 mmol/L (136-145) Potassium Level 4.4 mmol/L (3.5-5.1) Chloride Level 103 mmol/L (98-107) Carbon Dioxide Level 31 mmol/L (21-32) Anion Gap 7 (6-14) Blood Urea Nitrogen 37 mg/dL (8-26) Creatinine 2.0 mg/dL (0.7-1.3) Estimated GFR (Cockcroft-Gault) 40.7 Glucose Level 92 mg/dL (70-99) Calcium Level 8.7 mg/dL (8.5-10.1) Magnesium Level 1.8 mg/dL (1.8-2.4) O2 Saturation 97 % (92-99) Arterial Blood pH 7.39 (7.35-7.45) Arterial Blood pCO2 at Patient Temp 48 mmHg (35-46) Arterial Blood pO2 at Patient Temp 96 mmHg (65-108) Arterial Blood HCO3 28 mmol/L (21-28) Arterial Blood Base Excess 3 mmol/L (-3-3) Oxyhemoglobin 95.9 % Methemoglobin 0.4 % (0.0-1.9) Carbon Monoxide, Quantitative 0.3 % (0.0-1.9) FiO2 1 lpm nc Microbiology 10/21/19 Urine Culture - Preliminary, Resulted Medications Current Medications Albuterol Sulfate (Ventolin Neb Soln) 5 mg 1X ONCE NEB Last administered on 10/21/19at 02:45; Start 10/21/19 at 02:15; Stop 10/21/19 at 02:16; Status DC Albuterol/ Ipratropium (Duoneb) 3 ml 1X ONCE NEB Last administered on 10/21/19at 02:45; Start 10/21/19 at 02:15; Stop 10/21/19 at 02:16; Status DC Sodium Polystyrene Sulfonate (Kayexalate) 15 gm 1X ONCE PO Last administered on 10/21/19at 05:11; Start 10/21/19 at 05:00; Stop 10/21/19 at 05:01; Status DC Dextrose (Dextrose 50%-Water Syringe) 25 gm 1X ONCE IV Last administered on 10/21/19at 05:50; Start 10/21/19 at 05:00; Stop 10/21/19 at 05:01; Status DC Insulin Human Regular (HumuLIN R VIAL) 10 unit 1X ONCE IV Last administered on 10/21/19at 05:11; Start 10/21/19 at 05:00; Stop 10/21/19 at 05:01; Status DC Albuterol/ Ipratropium (Duoneb) 3 ml RTQID NEB ; Start 10/21/19 at 08:00; Stop 10/21/19 at 07:33; Status DC Albuterol Sulfate (Ventolin Neb Soln) 3 mg PRN QID PRN NEB SHORTNESS OF BREATH Last administered on 10/21/19at 11:16; Start 10/21/19 at 07:15 Saliva Substitute (Biotene Moisturizing Mouth) 2 spray PRN Q15MIN PRN PO DRY MOUTH; Start 10/21/19 at 07:45 Aspirin (Aspirin Chewable) 81 mg DAILY PO Last administered on 10/22/19at 10:12; Start 10/21/19 at 09:00 Atorvastatin Calcium (Lipitor) 40 mg HS PO Last administered on 10/21/19at 21:27; Start 10/21/19 at 21:00 Carvedilol (Coreg) 3.125 mg BIDWMEALS PO Last administered on 10/22/19at 10:14; Start 10/21/19 at 08:00 Clopidogrel Bisulfate (Plavix) 75 mg DAILYWBKFT PO Last administered on 10/22/19at 10:13; Start 10/21/19 at 08:00 Furosemide (Lasix) 40 mg DAILY PO Last administered on 10/22/19at 10:13; Start 10/21/19 at 09:00 Isosorbide Mononitrate (Imdur) 30 mg DAILY PO Last administered on 10/22/19at 10:15; Start 10/21/19 at 09:00 Warfarin Sodium (Coumadin Per Pharmacy) 1 each PRN DAILY PRN MC SEE COMMENTS Last administered on 10/22/19at 13:00; Start 10/21/19 at 07:45 Warfarin Sodium (Coumadin) 2 mg 1X WARF ONCE PO Last administered on 10/21/19at 18:01; Start 10/21/19 at 16:00; Stop 10/21/19 at 16:01; Status DC Budesonide (Pulmicort) 0.5 mg RTBID NEB ; Start 10/22/19 at 20:00; Stop 10/22/19 at 10:23; Status DC Budesonide (Pulmicort) 0.5 mg 1X ONCE NEB Last administered on 10/22/19at 11:20; Start 10/22/19 at 09:00; Stop 10/22/19 at 09:01; Status DC Albuterol/ Ipratropium (Duoneb) 3 ml RTQID NEB ; Start 10/22/19 at 12:00; Stop 10/22/19 at 10:23; Status DC Albuterol/ Ipratropium (Duoneb) 3 ml 1X ONCE NEB ; Start 10/22/19 at 09:00; Stop 10/22/19 at 09:01; Status DC Albuterol/ Ipratropium (Duoneb) 3 ml RTQID NEB Last administered on 10/22/19at 11:20; Start 10/22/19 at 12:00 Budesonide (Pulmicort) 0.5 mg RTBID NEB ; Start 10/22/19 at 20:00 Methylprednisolone Sodium Succinate (SOLU-Medrol 40MG VIAL) 80 mg Q8HRS IV Last administered on 10/22/19at 13:16; Start 10/22/19 at 14:00 Ceftriaxone Sodium (Rocephin) 1 gm Q24H IVP Last administered on 10/22/19at 13:15; Start 10/22/19 at 10:45 Warfarin Sodium (Coumadin) 2 mg 1X WARF ONCE PO ; Start 10/22/19 at 16:00; Stop 10/22/19 at 16:01 Active Scripts Active Isosorbide Mononitrate Er (Isosorbide Mononitrate) 30 Mg Tab.er.24h 1 Tab PO DAILY 30 Days Furosemide 20 Mg Tablet 40 Mg PO DAILY 30 Days Clopidogrel (Clopidogrel Bisulfate) 75 Mg Tablet 75 Mg PO DAILYWBKFT 30 Days Reported Coreg (Carvedilol) 3.125 Mg Tablet 3.125 Mg PO BIDWMEALS Coreg (Carvedilol) 3.125 Mg Tablet 3.125 Mg PO BIDWMEALS Aspirin 81 Mg Tab.chew 81 Mg PO DAILY Atorvastatin Calcium 40 Mg Tablet 40 Mg PO HS Vitals/I & O Vital Sign - Last 24 Hours 10/21/19 10/21/19 10/21/19 10/21/19 15:00 18:01 19:00 20:00 Temp 98.0 97.6 98.0 97.6 Pulse 80 80 99 Resp 20 18 B/P (MAP) 109/60 (76) 109/60 127/57 (80) Pulse Ox 98 96 O2 Delivery Nasal Cannula Nasal Cannula Nasal Cannula O2 Flow Rate 1.0 1.0 1.0 10/21/19 10/22/19 10/22/19 10/22/19 23:09 02:34 07:55 08:00 Temp 97.8 97.7 98.2 97.8 97.7 98.2 Pulse 96 96 89 Resp 19 18 18 B/P (MAP) 140/77 (98) 141/75 (97) 127/62 (83) Pulse Ox 95 96 97 O2 Delivery Nasal Cannula Nasal Cannula Nasal Cannula Nasal Cannula O2 Flow Rate 1.0 1.0 1.0 2.0 10/22/19 10/22/19 10/22/19 10/22/19 10:14 10:15 10:25 11:24 Temp 98.1 98.1 Pulse 107 106 100 Resp 18 B/P (MAP) 128/71 128/71 128/71 (90) Pulse Ox 96 100 O2 Delivery Nasal Cannula Nasal Cannula O2 Flow Rate 1.0 1.0 Intake and Output 10/21/19 10/21/19 10/22/19 15:00 23:00 07:00 Intake Total 360 ml 360 ml 100 ml Output Total 1200 ml 850 ml 50 ml Balance -840 ml -490 ml 50 ml MARY BONILLA MD Oct 22, 2019 13:38
[2019-10-22 14:28] VITALS: BP 112/58
[2019-10-22] MEDS ORDERED: WARFARIN 2 MG TABLET. PO ONE (16:00)
[2019-10-22 18:15] VITALS: BP 138/81
[2019-10-22] MEDS: BUDESONIDE 0.5 MG/2 ML NEBU. NEB SCH (19:55)
[2019-10-22] MEDS ORDERED: BUDESONIDE 0.5 MG/2 ML NEBU. NEB SCH (20:00)
[2019-10-22] MEDS: ATORVASTATIN CALCIUM 40 MG TABLET. PO SCH (20:14)
[2019-10-22 23:15] VITALS: BP 123/66
[2019-10-23 03:02] VITALS: BP 120/67
[2019-10-23 05:00] LABS: PROTHROMBIN TIME PATIENT 22.8 SEC (11.7-14.0)
[2019-10-23 05:07] LABS: CALCIUM 9.3 mg/dL (8.5-10.1); GFR 40.7; POTASSIUM 4.6 mmol/L (3.5-5.1)
[2019-10-23] MEDS: methylPREDNISolone SOD SUCC PF 40 MG/ML VIAL. IV SCH (05:58)
[2019-10-23 07:12] VITALS: BP 186/86
[2019-10-23] MEDS: BUDESONIDE 0.5 MG/2 ML NEBU. NEB SCH (07:25)
[2019-10-23] MEDS: IPRATRPIUM/ALBUTEROL 0.5/2.5MG 3 ML NEBU. NEB SCH ×2 (07:25→11:42)
[2019-10-23] MEDS: CLOPIDOGREL BISULFATE 75 MG TABLET PO SCH (08:49)
[2019-10-23 08:50] VITALS: BP 186/86
[2019-10-23] MEDS: ISOSORBIDE MONONITRATE ER 30 MG TAB.ER.24H PO SCH (08:50)
[2019-10-23] MEDS: CARVEDILOL 3.125 MG TABLET. PO SCH (08:50)
[2019-10-23] MEDS: ASPIRIN CHEWABLE 81 MG TABLET. PO SCH (08:50)
--- NOTE | 2019-10-23 08:57 | NUR ---
Pharmacy Warfarin Dosing Note S:Pharmacy consulted to assist with anticoagulation therapy started with target INR: 2 -3 O:DIOGO MADRIGAL is a 64 year old M with LV thrombus LABS: Last INR: 2 Last HGB: 14 Last HCT: 43.6 Last PLT: 332 Last dose of 2 mg given on 10/22/19 at 1600 Vitamin K given: N A:INR of 2 is within desired range. Target range for this patient is: 2 -3 P: Warfarin dose: 2 mg Today at 1600 Bridge Therapy: None Next INR due 10/24/19 Pharmacy anticoagulation service will continue to follow. DARI LIN RPH, 10/23/19 0841
[2019-10-23] MEDS ORDERED: DOXY100T PO (09:12)
[2019-10-23] MEDS ORDERED: PRED-220 PO (09:12)
--- NOTE | 2019-10-23 09:14 | SNU/HH DC ---
DISCHARGE WITH HOME HEALTH DISCHARGE INFORMATION: Discharge Date: Oct 23, 2019 Final Diagnosis: COPD exacerbation hyperkalemia urinary retention acute on chronic systolic CHF CAD Problems Medical Problems: (1) Chronic renal disease Status: Acute (2) COPD exacerbation Status: Acute (3) Hyperkalemia Status: Acute (4) Hypoxemia Status: Acute Condition on Discharge: Stable HOME HEALTH: Face to Face: I certify this patient is under my care and that I, or a nurse practitioner or physician's environmental emergencies assistant working with me, had a face to face encounter that meets the physician face to face encounter requirements with this patient on 10/22 Medical Complications: CHF, COPD Nursing Home For: Assess & Educate Safety, Medication Management RN For Eval/Treatment: Yes Physical Therapy For: Evalulation/Treatment Occupational Therapy For: Evaluation/Treatment Pt Meets Homebound Status: Poor coordination w/ amb., Unsteady balance w/ amb, POST DISCHARGE ORDERS: Activity Instructions for Disc: Activity as tolerated Weight Bearing Status after Di: As tolerated Bathing Instructions: Shower-keep dressing dry, No Tub Bath until see DIET AFTER DISCHARGE: Cardiac CHECKS AFTER DISCHARGE: Checks after discharge: Check blood press - daily [facility]LLOW-UP: [facility] ORDERS: Adaptive Equipment Issued: None CERTIFICATION STATEMENT: Certification Statement: Certification Statement: Based on the above finding, I certify that this patient is confined to the home and needs intermittent residential care, physical therapy and/or speech therapy, or continues to need occupational therapy.~ This patient is under my care, and I have initiated the establishment of the plan of care.~ This patient will be followed by myself or a community physician who will periodically review the plan of care. Home Meds Active Scripts Doxycycline Hyclate (DOXYCYCLINE HYCLATE) 100 Mg Tablet, 1 TAB PO BID for COPD exacerbation, #14 TAB Prov:MARY BONILLA MD 10/23/19 Prednisone (PREDNISONE ) 10 Mg Tablet, 10 MG PO UD for COPD, #29 TAB 0 Refills take 4 tablets by mouth daily for 3 days, then take 3 tablets by mouth daily for 3 days, then take 2 tablets by mouth daily for 3 days, then take 1 tablets by mouth daily for 2 days, then stop. Prov:MARY BONILLA MD 10/23/19 Isosorbide Mononitrate (ISOSORBIDE MONONITRATE ER) 30 Mg Tab.er.24h, 1 TAB PO DAILY for CHF for 30 Days, #30 TAB 5 Refills Prov:ALBINO SILVA MD 05/21/19 Furosemide (FUROSEMIDE) 20 Mg Tablet, 40 MG PO DAILY for CHF for 30 Days, #60 TAB Prov:ALBINO SILVA MD 05/21/19 Clopidogrel Bisulfate (CLOPIDOGREL) 75 Mg Tablet, 75 MG PO DAILYWBKFT for weems ry artery disease for 30 Days, #30 TAB 2 Refills Prov:SHEEBA ROMAN APRN 05/19/19 Reported Medications Carvedilol (COREG ) 3.125 Mg Tablet, 3.125 MG PO BIDWMEALS for CARDIAC, TAB 06/26/19 Carvedilol (COREG ) 3.125 Mg Tablet, 3.125 MG PO BIDWMEALS for CARDIAC, TAB 06/26/19 Aspirin (ASPIRIN) 81 Mg Tab.chew, 81 MG PO DAILY, TAB.CHEW 09/18/17 Atorvastatin Calcium (ATORVASTATIN CALCIUM) 40 Mg Tablet, 40 MG PO HS for FOR C HOLESTEROL, #30 TAB 0 Refills 09/18/17 MARY BONILLA MD Oct 23, 2019 09:14
--- NOTE | 2019-10-23 09:16 | PDOC3 ---
Discharge Summary Visit Information Date of Admission: Oct 21, 2019 Date of Discharge: Oct 23, 2019 Final Diagnosis acute shortness of breath with chest pressure, pain angina, r/o ACS hx PVD, blood clots, check US legs, check INR, cont coumadin, consider PE for cause of new dyspnea, io. CHF, acute on chronic systolic, appears dry, EF 25% hyperkalemia, insulin and kayexalate given in ER, recheck labs, phos, mag, CKD 3 COPD, with wheeze, new History of Present Illness History of Present Illness feels better, still wheezing, consult pulm, add pulm meds schduled, optimize cardiac, renal following, start PT and OT Vitals Problems Medical Problems: (1) Chronic renal disease Status: Acute (2) COPD exacerbation Status: Acute (3) Hyperkalemia Status: Acute (4) Hypoxemia Status: Acute Brief Hospital Course Allergies Allergies Coded Allergies Type Severity Reaction Last Updated Verified No Known Drug Allergies 09/17/17 No Vital Signs Vital Signs Date Time Temp Pulse Resp B/P (MAP) Pulse Ox O2 Delivery O2 Flow Rate FiO2 10/23/19 08:50 98 186/86 10/23/19 07:27 94 Room Air 10/23/19 07:12 98.0 18 98.0 10/22/19 18:15 1.0 Lab Results Laboratory Tests Test 10/21/19 10:00 10/22/19 04:20 10/22/19 11:20 10/23/19 04:35 Urine Collection Type Unknown Urine Color Yellow Urine Clarity Clear Urine pH 5.0 (<5.0-8.0) Urine Specific [place] 1.010 (1.000-1.030) Urine Protein Negative mg/dL (NEG-TRACE) Urine Glucose (UA) Negative mg/dL (NEG) Urine Ketones (Stick) Negative mg/dL (NEG) Urine Blood Moderate (NEG) Urine Nitrite Negative (NEG) Urine Bilirubin Negative (NEG) Urine Urobilinogen Dipstick 0.2 mg/dL (0.2 mg/dL) Urine Leukocyte Esterase Large (NEG) Urine RBC 6-10 /HPF (0-2) Urine WBC 20-40 /HPF (0-4) Urine Squamous Epithelial Cells Few /LPF Urine Bacteria Moderate /HPF (0-FEW) Prothrombin Time 21.6 SEC (11.7-14.0) 22.8 SEC (11.7-14.0) Prothromb Time International Ratio 1.9 (0.8-1.1) 2.0 (0.8-1.1) Sodium Level 141 mmol/L (136-145) 137 mmol/L (136-145) Potassium Level 4.4 mmol/L (3.5-5.1) 4.6 mmol/L (3.5-5.1) Chloride Level 103 mmol/L (98-107) 100 mmol/L (98-107) Carbon Dioxide Level 31 mmol/L (21-32) 27 mmol/L (21-32) Anion Gap 7 (6-14) 10 (6-14) Blood Urea Nitrogen 37 mg/dL (8-26) 43 mg/dL (8-26) Creatinine 2.0 mg/dL (0.7-1.3) 2.0 mg/dL (0.7-1.3) Estimated GFR (Cockcroft-Gault) 40.7 40.7 Glucose Level 92 mg/dL (70-99) 148 mg/dL (70-99) Calcium Level 8.7 mg/dL (8.5-10.1) 9.3 mg/dL (8.5-10.1) Magnesium Level 1.8 mg/dL (1.8-2.4) O2 Saturation 97 % (92-99) Arterial Blood pH 7.39 (7.35-7.45) Arterial Blood pCO2 at Patient Temp 48 mmHg (35-46) Arterial Blood pO2 at Patient Temp 96 mmHg (65-108) Arterial Blood HCO3 28 mmol/L (21-28) Arterial Blood Base Excess 3 mmol/L (-3-3) Oxyhemoglobin 95.9 % Methemoglobin 0.4 % (0.0-1.9) Carbon Monoxide, Quantitative 0.3 % (0.0-1.9) FiO2 1 lpm nc Laboratory Tests Test 10/22/19 11:20 10/23/19 04:35 O2 Saturation 97 % (92-99) Arterial Blood pH 7.39 (7.35-7.45) Arterial Blood pCO2 at Patient Temp 48 mmHg (35-46) Arterial Blood pO2 at Patient Temp 96 mmHg (65-108) Arterial Blood HCO3 28 mmol/L (21-28) Arterial Blood Base Excess 3 mmol/L (-3-3) Oxyhemoglobin 95.9 % Methemoglobin 0.4 % (0.0-1.9) Carbon Monoxide, Quantitative 0.3 % (0.0-1.9) FiO2 1 lpm nc Prothrombin Time 22.8 SEC (11.7-14.0) Prothromb Time International Ratio 2.0 (0.8-1.1) Sodium Level 137 mmol/L (136-145) Potassium Level 4.6 mmol/L (3.5-5.1) Chloride Level 100 mmol/L (98-107) Carbon Dioxide Level 27 mmol/L (21-32) Anion Gap 10 (6-14) Blood Urea Nitrogen 43 mg/dL (8-26) Creatinine 2.0 mg/dL (0.7-1.3) Estimated GFR (Cockcroft-Gault) 40.7 Glucose Level 148 mg/dL (70-99) Calcium Level 9.3 mg/dL (8.5-10.1) Brief Hospital Course Mr. Kay is a 64 old male He came in to the hospital with increasing dyspnea. He also had a cough with some beige-colored sputum. No chest pain; no headaches; no nausea, vomiting or diarrhea. The patient denies any history of DVT or pulmonary embolism. He is not on home oxygen, but required 2 liters. His chest x-ray revealed mildly elevated right hemidiaphragm with pleural thickening, but no definite consolidation seen. Venous Dopplers had no evidence of any DVT. dyspnea improved with COPD treatmetn, no prior COPD diagnosis, his hypoxia imrpvoed at DC Discharge Information Condition at Discharge: Improved Follow Up: Weeks Disposition/Orders: D/C to Home w/ HH Scheduled Aspirin (Aspirin) 81 Mg Tab.chew, 81 MG PO DAILY, (Reported) Entered as Reported by: Natasha Rolle on 09/18/171706 Last Action: Continued on 10/21/19733 by MARY BONILLA Atorvastatin Calcium (Atorvastatin Calcium) 40 Mg Tablet, 40 MG PO HS for FOR C HOLESTEROL, #30 Ref 0 (Reported) Entered as Reported by: Natasha Rolle on 09/18/171705 Last Action: Continued on 10/21/19733 by MARY BONILLA Carvedilol (Coreg ) 3.125 Mg Tablet, 3.125 MG PO BIDWMEALS for CARDIAC, (Reported) Entered as Reported by: MARISOL ARREOLA on 06/26/191133 Last Action: Continued on 10/21/19733 by MARY BONILLA Clopidogrel Bisulfate (Clopidogrel) 75 Mg Tablet, 75 MG PO DAILYWBKFT for coronary artery disease for 30 Days, #30 Ref 2 Prescribed by: SHEEBA ROMAN APRN on 05/19/19 1209 Last Action: Continued on 10/21/19733 by MARY BONILLA Doxycycline Hyclate (Doxycycline Hyclate) 100 Mg Tablet, 1 TAB PO BID for COPD exacerbation, #14 Prescribed by: MARY BONILLA on 10/23/19911 Furosemide (Furosemide) 20 Mg Tablet, 40 MG PO DAILY for CHF for 30 Days, #60 Prescribed by: ALBINO SILVA MD on 05/21/19846 Last Action: Continued on 10/21/19733 by MARY BONILLA Isosorbide Mononitrate (Isosorbide Mononitrate Er) 30 Mg Tab.er.24h, 1 TAB PO DAILY for CHF for 30 Days, #30 Ref 5 Prescribed by: ALBINO SILVA MD on 05/21/19846 Last Action: Continued on 10/21/19733 by MARY BONILLA Prednisone (Prednisone ) 10 Mg Tablet, 10 MG PO UD for COPD, #29 Ref 0 take 4 tablets by mouth daily for 3 days, then take 3 tablets by mouth daily for 3 days, then take 2 tablets by mouth daily for 3 days, then take 1 tablets by mouth daily for 2 days, then stop. Prescribed by: MARY BONILLA on 10/23/19911 Discontinued Medications Carvedilol (Coreg ) 3.125 Mg Tablet, 3.125 MG PO BIDWMEALS for CARDIAC, (Reported) Entered as Reported by: MARISOL ARREOLA on 06/26/191133 Last Action: HELD on 10/21/19733 by MARY BONILLA Patient Instructions Patient Instructions > 30mn face to face f/u [facility] Justicifation of Admission Dx: Justifications for Admission: Justification of Admission Dx: Yes CHF: Sev. Electrolyte Abnormal MARY BONILLA MD Oct 23, 2019 09:16
[2019-10-23] MEDS ORDERED: IPRA4AER IH (09:17)
--- NOTE | 2019-10-23 10:03 | NUR ---
SS following up with discharge planning. SS reviewed pt chart and discussed with pt RN. Discharge orders received for home healthcare. SS met with pt to discuss discharge planning and home healthcare. Pt reported that he was current on services with [facility], ; fax [phone]. SS phoned and faxed discharge orders and referral to [facility]. Pt's RN notified.
--- NOTE | 2019-10-23 10:22 | PDOC ---
PULMONARY PROGRESS NOTES Subjective Feeling much better today, on room air Denies SOB or cough ready to go home Vitals Vital Signs Date Time Temp Pulse Resp B/P (MAP) Pulse Ox O2 Delivery O2 Flow Rate FiO2 10/23/19 08:50 98 186/86 10/23/19 08:00 Room Air 10/23/19 07:27 94 10/23/19 07:12 98.0 18 98.0 10/22/19 18:15 1.0 ROS: No Nausea, No Chest Pain, No Abdominal Pain, No Increase Cough General: Alert, Oriented X4 Lungs: Clear Cardiovascular: S1, S2 Abdomen: Soft, Non-tender Neuro Exam: Alert, Oriented Extremities: No Edema Skin: Warm, Dry Labs Laboratory Tests Test 10/22/19 04:20 10/22/19 11:20 10/23/19 04:35 Prothrombin Time 21.6 SEC (11.7-14.0) 22.8 SEC (11.7-14.0) Prothromb Time International Ratio 1.9 (0.8-1.1) 2.0 (0.8-1.1) Sodium Level 141 mmol/L (136-145) 137 mmol/L (136-145) Potassium Level 4.4 mmol/L (3.5-5.1) 4.6 mmol/L (3.5-5.1) Chloride Level 103 mmol/L (98-107) 100 mmol/L (98-107) Carbon Dioxide Level 31 mmol/L (21-32) 27 mmol/L (21-32) Anion Gap 7 (6-14) 10 (6-14) Blood Urea Nitrogen 37 mg/dL (8-26) 43 mg/dL (8-26) Creatinine 2.0 mg/dL (0.7-1.3) 2.0 mg/dL (0.7-1.3) Estimated GFR (Cockcroft-Gault) 40.7 40.7 Glucose Level 92 mg/dL (70-99) 148 mg/dL (70-99) Calcium Level 8.7 mg/dL (8.5-10.1) 9.3 mg/dL (8.5-10.1) Magnesium Level 1.8 mg/dL (1.8-2.4) O2 Saturation 97 % (92-99) Arterial Blood pH 7.39 (7.35-7.45) Arterial Blood pCO2 at Patient Temp 48 mmHg (35-46) Arterial Blood pO2 at Patient Temp 96 mmHg (65-108) Arterial Blood HCO3 28 mmol/L (21-28) Arterial Blood Base Excess 3 mmol/L (-3-3) Oxyhemoglobin 95.9 % Methemoglobin 0.4 % (0.0-1.9) Carbon Monoxide, Quantitative 0.3 % (0.0-1.9) FiO2 1 lpm nc Laboratory Tests Test 10/22/19 11:20 10/23/19 04:35 O2 Saturation 97 % (92-99) Arterial Blood pH 7.39 (7.35-7.45) Arterial Blood pCO2 at Patient Temp 48 mmHg (35-46) Arterial Blood pO2 at Patient Temp 96 mmHg (65-108) Arterial Blood HCO3 28 mmol/L (21-28) Arterial Blood Base Excess 3 mmol/L (-3-3) Oxyhemoglobin 95.9 % Methemoglobin 0.4 % (0.0-1.9) Carbon Monoxide, Quantitative 0.3 % (0.0-1.9) FiO2 1 lpm nc Prothrombin Time 22.8 SEC (11.7-14.0) Prothromb Time International Ratio 2.0 (0.8-1.1) Sodium Level 137 mmol/L (136-145) Potassium Level 4.6 mmol/L (3.5-5.1) Chloride Level 100 mmol/L (98-107) Carbon Dioxide Level 27 mmol/L (21-32) Anion Gap 10 (6-14) Blood Urea Nitrogen 43 mg/dL (8-26) Creatinine 2.0 mg/dL (0.7-1.3) Estimated GFR (Cockcroft-Gault) 40.7 Glucose Level 148 mg/dL (70-99) Calcium Level 9.3 mg/dL (8.5-10.1) Medications Active Scripts Medications Dose Route/Sig Max Daily Dose Days Date Category Dose Instructions Combivent Respimat Inhal (Ipratropium/Albuterol Sulfate) 4 Gm Aer.w.adap 1 Inh IH QID 10/23/19 Rx Doxycycline Hyclate 100 Mg Tablet 1 Tab PO BID 10/23/19 Rx Prednisone (Prednisone) 10 Mg Tablet 10 Mg PO UD 10/23/19 Rx take 4 tablets by mouth daily for 3 days, then take 3 tablets by mouth daily for 3 days, then take 2 tablets by mouth daily for 3 days, then take 1 tablets by mouth daily for 2 days, then stop. Coreg (Carvedilol) 3.125 Mg Tablet 3.125 Mg PO BIDWMEALS 06/26/19 Reported Isosorbide Mononitrate Er (Isosorbide Mononitrate) 30 Mg Tab.er.24h 1 Tab PO DAILY 05/21/19 Rx Furosemide 20 Mg Tablet 40 Mg PO DAILY 30 05/21/19 Rx Clopidogrel (Clopidogrel Bisulfate) 75 Mg Tablet 75 Mg PO DAILYWBKFT 30 05/19/19 Rx Aspirin 81 Mg Tab.chew 81 Mg PO DAILY 09/18/17 Reported Atorvastatin Calcium 40 Mg Tablet 40 Mg PO HS 09/18/17 Reported Comments U/S RADHA Impression: No evidence for deep vein thrombosis of bilateral lower extremities from the level of the calf veins to the groins. CXR IMPRESSION: * Blunting of the right costophrenic angle which could be secondary to small pleural effusion or pleural thickening. Impression . IMPRESSION: 1. Dyspnea with acute hypoxic respiratory failure secondary to acute exacerbation of chronic obstructive pulmonary disease-- improved now on room air 2. Acute bronchitis. No definite consolidation seen on the chest x-ray. 3. Abnormal chest x-ray with mild pleural thickening in the right lower chest and elevated right hemidiaphragm. 4. Chronic anticoagulation for PVD. h/o Aortofem bypass Plan . RECOMMENDATIONS: Clinically stable from pulmonary standpoint, remains on room air, ABG WNL Cont. full course of ABX Bronchodilators Change steroids to po with slow taper Ok to D/C home from our stand point D/W JERRY MAGALLANES MD Oct 23, 2019 10:22
--- NOTE | 2019-10-23 10:58 | PDOC ---
Renal-Progress Notes Subjective Notes Notes NO NEW COMPLAINTS History of Present Illness Hx of present illness STABLE Vitals Vitals Vital Signs Date Time Temp Pulse Resp B/P (MAP) Pulse Ox O2 Delivery O2 Flow Rate FiO2 10/23/19 08:50 98 186/86 10/23/19 08:00 Room Air 10/23/19 07:27 94 10/23/19 07:12 98.0 18 98.0 10/22/19 18:15 1.0 Weight Weight [ ] I.O. Intake and Output Intake and Output 10/23/19 07:00 Intake Total 500 ml Output Total 625 ml Balance -125 ml Intake Oral 500 ml Output Urine Total 625 ml Labs Labs Laboratory Tests Test 10/22/19 11:20 10/23/19 04:35 O2 Saturation 97 % (92-99) Arterial Blood pH 7.39 (7.35-7.45) Arterial Blood pCO2 at Patient Temp 48 mmHg (35-46) Arterial Blood pO2 at Patient Temp 96 mmHg (65-108) Arterial Blood HCO3 28 mmol/L (21-28) Arterial Blood Base Excess 3 mmol/L (-3-3) Oxyhemoglobin 95.9 % Methemoglobin 0.4 % (0.0-1.9) Carbon Monoxide, Quantitative 0.3 % (0.0-1.9) FiO2 1 lpm nc Prothrombin Time 22.8 SEC (11.7-14.0) Prothromb Time International Ratio 2.0 (0.8-1.1) Sodium Level 137 mmol/L (136-145) Potassium Level 4.6 mmol/L (3.5-5.1) Chloride Level 100 mmol/L (98-107) Carbon Dioxide Level 27 mmol/L (21-32) Anion Gap 10 (6-14) Blood Urea Nitrogen 43 mg/dL (8-26) Creatinine 2.0 mg/dL (0.7-1.3) Estimated GFR (Cockcroft-Gault) 40.7 Glucose Level 148 mg/dL (70-99) Calcium Level 9.3 mg/dL (8.5-10.1) Micro Micro Microbiology 10/21/19 Urine Culture - Final, Complete 10/21/19 Antimicrobic Susceptibility - Final, Complete Review of Systems Constitutional: yes: alert Ears/Nose/Throat: Yes: no symptom reported Eyes: Yes: no symptom reported Pulmonary: Yes no symptom reported Cardiovascular: Yes no symptom reported Gastrointestional: Yes: no symptom reported Genitourinary: Yes: no symptom reported Musculoskeletal: Yes: no symptom reported Skin: Yes no symptom reported Psychiatric/Neurological: Yes: no symptom reported Endocrine: Yes: no symptom reported Physical Exam General Appearance: no apparent distress Skin: warm Heart: S1S2, RRR Abdomen: soft, bowel sounds present Genitourinary: bladder flat Extremities: pulses present Neurology: alert, oriented, follow commands Musculoskeletal: Osteoarthritis Assessment Assessment IMP CKD STAGE 3-CR STABLE AT 2.0 HYPERKALEMIA-RESOLVED AECOPD URINARY RETENTION CM WITH EF OF 30% HX OF CAD HTN HX PLAN PO LASIX AGREE WITH HOLDING ALDCATONE NOW OP F/U WILL FOLLOW ANISA SANTILLAN MD Oct 23, 2019 10:58
--- NOTE | 2019-10-23 11:59 | NUR ---
Discharge Note: [facility] Discharge instructions and discharge home medications reviewed with Patient and a copy given. All questions have been answered and understanding verbalized. Prescriptions and belongings given to patient. The following instructions and handouts were given: COPD and new medications: doxycycline and prednisone. Discontinued lines and drains: Peripheral IV intact. Patient discharged to Home with Home Health with Spouse via Wheelchair
--- NOTE | 2019-10-23 14:31 | PDOC ---
PROGRESS NOTES Subjective Subjective Patient seen and examined Objective Objective Vital Signs Date Time Temp Pulse Resp B/P (MAP) Pulse Ox O2 Delivery O2 Flow Rate FiO2 10/23/19 11:42 Room Air 10/23/19 08:50 98 186/86 10/23/19 07:27 94 10/23/19 07:12 98.0 18 98.0 10/22/19 18:15 1.0 Intake and Output 10/23/19 07:00 Intake Total 500 ml Output Total 625 ml Balance -125 ml Intake Oral 500 ml Output Urine Total 625 ml Physical Exam Abdomen: Normal bowel sounds Heart: Regular rate General: No acute distress, Other Lungs: Other (Slightly decreased) Assessment Assessment Problems Medical Problems: (1) Chronic renal disease Status: Acute (2) COPD exacerbation Status: Acute (3) Hyperkalemia Status: Acute (4) Hypoxemia Status: Acute Acute on chronic systolic heart failure better compensated. Continue lasix PO. Continue to increase activity 2D echo showed LVEF 25%. CAD status clinically stable. AICD interrogation showed normal function. No VT/VF recorded PAD s/p recent surgical revascularization, clinically stable. Continue warfarin. Continue current treatment for acute COPD exacerbation. Follow up with primary dx board operator at [facility]. Comment Review of Relevant I have reviewed the following items dunia (where applicable) has been applied. Labs Laboratory Tests Test 10/22/19 04:20 10/22/19 11:20 10/23/19 04:35 Prothrombin Time 21.6 SEC (11.7-14.0) 22.8 SEC (11.7-14.0) Prothromb Time International Ratio 1.9 (0.8-1.1) 2.0 (0.8-1.1) Sodium Level 141 mmol/L (136-145) 137 mmol/L (136-145) Potassium Level 4.4 mmol/L (3.5-5.1) 4.6 mmol/L (3.5-5.1) Chloride Level 103 mmol/L (98-107) 100 mmol/L (98-107) Carbon Dioxide Level 31 mmol/L (21-32) 27 mmol/L (21-32) Anion Gap 7 (6-14) 10 (6-14) Blood Urea Nitrogen 37 mg/dL (8-26) 43 mg/dL (8-26) Creatinine 2.0 mg/dL (0.7-1.3) 2.0 mg/dL (0.7-1.3) Estimated GFR (Cockcroft-Gault) 40.7 40.7 Glucose Level 92 mg/dL (70-99) 148 mg/dL (70-99) Calcium Level 8.7 mg/dL (8.5-10.1) 9.3 mg/dL (8.5-10.1) Magnesium Level 1.8 mg/dL (1.8-2.4) O2 Saturation 97 % (92-99) Arterial Blood pH 7.39 (7.35-7.45) Arterial Blood pCO2 at Patient Temp 48 mmHg (35-46) Arterial Blood pO2 at Patient Temp 96 mmHg (65-108) Arterial Blood HCO3 28 mmol/L (21-28) Arterial Blood Base Excess 3 mmol/L (-3-3) Oxyhemoglobin 95.9 % Methemoglobin 0.4 % (0.0-1.9) Carbon Monoxide, Quantitative 0.3 % (0.0-1.9) FiO2 1 lpm nc Laboratory Tests Test 10/23/19 04:35 Prothrombin Time 22.8 SEC (11.7-14.0) Prothromb Time International Ratio 2.0 (0.8-1.1) Sodium Level 137 mmol/L (136-145) Potassium Level 4.6 mmol/L (3.5-5.1) Chloride Level 100 mmol/L (98-107) Carbon Dioxide Level 27 mmol/L (21-32) Anion Gap 10 (6-14) Blood Urea Nitrogen 43 mg/dL (8-26) Creatinine 2.0 mg/dL (0.7-1.3) Estimated GFR (Cockcroft-Gault) 40.7 Glucose Level 148 mg/dL (70-99) Calcium Level 9.3 mg/dL (8.5-10.1) Microbiology 10/21/19 Urine Culture - Final, Complete 10/21/19 Antimicrobic Susceptibility - Final, Complete Medications Current Medications Albuterol Sulfate (Ventolin Neb Soln) 5 mg 1X ONCE NEB Last administered on 10/21/19at 02:45; Start 10/21/19 at 02:15; Stop 10/21/19 at 02:16; Status DC Albuterol/ Ipratropium (Duoneb) 3 ml 1X ONCE NEB Last administered on 10/21/19at 02:45; Start 10/21/19 at 02:15; Stop 10/21/19 at 02:16; Status DC Sodium Polystyrene Sulfonate (Kayexalate) 15 gm 1X ONCE PO Last administered on 10/21/19at 05:11; Start 10/21/19 at 05:00; Stop 10/21/19 at 05:01; Status DC Dextrose (Dextrose 50%-Water Syringe) 25 gm 1X ONCE IV Last administered on 10/21/19at 05:50; Start 10/21/19 at 05:00; Stop 10/21/19 at 05:01; Status DC Insulin Human Regular (HumuLIN R VIAL) 10 unit 1X ONCE IV Last administered on 10/21/19at 05:11; Start 10/21/19 at 05:00; Stop 10/21/19 at 05:01; Status DC Albuterol/ Ipratropium (Duoneb) 3 ml RTQID NEB ; Start 10/21/19 at 08:00; Stop 10/21/19 at 07:33; Status DC Albuterol Sulfate (Ventolin Neb Soln) 3 mg PRN QID PRN NEB SHORTNESS OF BREATH Last administered on 10/21/19at 11:16; Start 10/21/19 at 07:15; Stop 10/23/19 at 11:52; Status DC Saliva Substitute (Biotene Moisturizing Mouth) 2 spray PRN Q15MIN PRN PO DRY MOUTH; Start 10/21/19 at 07:45; Stop 10/23/19 at 11:52; Status DC Aspirin (Aspirin Chewable) 81 mg DAILY PO Last administered on 10/23/19at 08:50; Start 10/21/19 at 09:00; Stop 10/23/19 at 11:52; Status DC Atorvastatin Calcium (Lipitor) 40 mg HS PO Last administered on 10/22/19at 20:14; Start 10/21/19 at 21:00; Stop 10/23/19 at 11:52; Status DC Carvedilol (Coreg) 3.125 mg BIDWMEALS PO Last administered on 10/23/19at 08:50; Start 10/21/19 at 08:00; Stop 10/23/19 at 11:52; Status DC Clopidogrel Bisulfate (Plavix) 75 mg DAILYWBKFT PO Last administered on 10/23/19at 08:49; Start 10/21/19 at 08:00; Stop 10/23/19 at 11:52; Status DC Furosemide (Lasix) 40 mg DAILY PO Last administered on 10/22/19at 10:13; Start 10/21/19 at 09:00; Stop 10/22/19 at 15:16; Status DC Isosorbide Mononitrate (Imdur) 30 mg DAILY PO Last administered on 10/23/19at 08:50; Start 10/21/19 at 09:00; Stop 10/23/19 at 11:52; Status DC Warfarin Sodium (Coumadin Per Pharmacy) 1 each PRN DAILY PRN MC SEE COMMENTS Last administered on 10/23/19at 08:56; Start 10/21/19 at 07:45; Stop 10/23/19 at 11:52; Status DC Warfarin Sodium (Coumadin) 2 mg 1X WARF ONCE PO Last administered on 10/21/19at 18:01; Start 10/21/19 at 16:00; Stop 10/21/19 at 16:01; Status DC Budesonide (Pulmicort) 0.5 mg RTBID NEB ; Start 10/22/19 at 20:00; Stop 10/22/19 at 10:23; Status DC Budesonide (Pulmicort) 0.5 mg 1X ONCE NEB Last administered on 10/22/19at 11:20; Start 10/22/19 at 09:00; Stop 10/22/19 at 09:01; Status DC Albuterol/ Ipratropium (Duoneb) 3 ml RTQID NEB ; Start 10/22/19 at 12:00; Stop 10/22/19 at 10:23; Status DC Albuterol/ Ipratropium (Duoneb) 3 ml 1X ONCE NEB ; Start 10/22/19 at 09:00; Stop 10/22/19 at 09:01; Status DC Albuterol/ Ipratropium (Duoneb) 3 ml RTQID NEB Last administered on 10/23/19at 11:42; Start 10/22/19 at 12:00; Stop 10/23/19 at 11:52; Status DC Budesonide (Pulmicort) 0.5 mg RTBID NEB Last administered on 10/23/19at 07:25; Start 10/22/19 at 20:00; Stop 10/23/19 at 11:52; Status DC Methylprednisolone Sodium Succinate (SOLU-Medrol 40MG VIAL) 80 mg Q8HRS IV Last administered on 10/23/19at 05:58; Start 10/22/19 at 14:00; Stop 10/23/19 at 11:52; Status DC Ceftriaxone Sodium (Rocephin) 1 gm Q24H IVP Last administered on 10/22/19at 13:15; Start 10/22/19 at 10:45; Stop 10/23/19 at 11:52; Status DC Warfarin Sodium (Coumadin) 2 mg 1X WARF ONCE PO Last administered on 10/22/19at 16:00; Start 10/22/19 at 16:00; Stop 10/22/19 at 16:01; Status DC Furosemide (Lasix) 40 mg DAILY PO ; Start 10/24/19 at 09:00; Stop 10/23/19 at 08:55; Status DC Warfarin Sodium (Coumadin) 2 mg 1X WARF ONCE PO ; Start 10/23/19 at 16:00; Stop 10/23/19 at 11:52; Status DC Lactobacillus Rhamnosus (Culturelle) 1 cap BID PO ; Start 10/23/19 at 21:00; Stop 10/23/19 at 11:52; Status DC Active Scripts Active Combivent Respimat Inhal (Ipratropium/Albuterol Sulfate) 4 Gm Aer.w.adap 1 Inh IH QID Doxycycline Hyclate 100 Mg Tablet 1 Tab PO BID Prednisone (Prednisone) 10 Mg Tablet 10 Mg PO UD take 4 tablets by mouth daily for 3 days, then take 3 tablets by mouth daily for 3 days, then take 2 tablets by mouth daily for 3 days, then take 1 tablets by mouth daily for 2 days, then stop. Isosorbide Mononitrate Er (Isosorbide Mononitrate) 30 Mg Tab.er.24h 1 Tab PO DAILY 30 Days Furosemide 20 Mg Tablet 40 Mg PO DAILY 30 Days Clopidogrel (Clopidogrel Bisulfate) 75 Mg Tablet 75 Mg PO DAILYWBKFT 30 Days Reported Coreg (Carvedilol) 3.125 Mg Tablet 3.125 Mg PO BIDWMEALS Aspirin 81 Mg Tab.chew 81 Mg PO DAILY Atorvastatin Calcium 40 Mg Tablet 40 Mg PO HS Vitals/I & O Vital Sign - Last 24 Hours 10/22/19 10/22/19 10/22/19 10/22/19 16:00 17:00 18:15 19:40 Temp 97.7 97.7 Pulse 96 94 Resp 18 B/P (MAP) 128/78 138/81 (100) Pulse Ox 100 97 O2 Delivery Room Air Nasal Cannula Room Air O2 Flow Rate 1.0 10/22/19 10/22/19 10/23/19 10/23/19 19:55 23:15 03:02 07:12 Temp 98.3 98.1 98.0 98.3 98.1 98.0 Pulse 112 100 98 Resp 16 18 18 B/P (MAP) 123/66 (85) 120/67 (84) 186/86 (119) Pulse Ox 98 95 96 94 O2 Delivery Room Air Room Air Room Air Room Air 10/23/19 10/23/19 10/23/19 10/23/19 07:27 08:00 08:50 08:50 Pulse 98 98 B/P (MAP) 186/86 186/86 Pulse Ox 94 O2 Delivery Room Air Room Air 10/23/19 11:42 O2 Delivery Room Air Intake and Output 10/22/19 10/22/19 10/23/19 15:00 23:00 07:00 Intake Total 300 ml 200 ml Output Total 625 ml Balance 300 ml 200 ml -625 ml MARTIN ARMENTA MD Oct 23, 2019 14:31
[2019-10-23] MEDS ORDERED: WARFARIN 2 MG TABLET. PO ONE (16:00)
[2019-10-23] MEDS ORDERED: LACTOBACILLUS RHAMNOSUS GG 1 CAPSULE. PO SCH (21:00)
[2019-10-24] MEDS ORDERED: FUROSEMIDE 40 MG TABLET. PO SCH (09:00)
== END 2019-10-23 11:50 | disposition home health service (06) | DRG 189 ==
LOC: ER 01:44 → 2 SOUTH 05:18
PROVIDERS: ADMIT Internal Medicine; ATTEND Internal Medicine
DX: J96.01 Acute respiratory failure with hypoxia (principal); I50.23 Acute on chronic systolic (congestive) heart failure; I13.0 Hypertensive heart and chronic kidney disease with heart failure and stage 1 through stage 4 chronic kidney disease, or unspecified chronic kidney disease; J44.1 Chronic obstructive pulmonary disease with (acute) exacerbation; J44.0 Chronic obstructive pulmonary disease with (acute) lower respiratory infection; R33.9 Retention of urine, unspecified; M19.90 Unspecified osteoarthritis, unspecified site; I25.119 Atherosclerotic heart disease of native coronary artery with unspecified angina pectoris; E87.5 Hyperkalemia; I73.9 Peripheral vascular disease, unspecified; E78.5 Hyperlipidemia, unspecified; J20.9 Acute bronchitis, unspecified; F17.200 Nicotine dependence, unspecified, uncomplicated; N31.2 Flaccid neuropathic bladder, not elsewhere classified; N18.3 Chronic kidney disease, stage 3 (moderate); Z87.01 Personal history of pneumonia (recurrent); Z87.440 Personal history of urinary (tract) infections; Z95.5 Presence of coronary angioplasty implant and graft; Z95.810 Presence of automatic (implantable) cardiac defibrillator; Z86.73 Personal history of transient ischemic attack (TIA), and cerebral infarction without residual deficits; Z82.49 Family history of ischemic heart disease and other diseases of the circulatory system; Z79.899 Other long term (current) drug therapy; Z79.82 Long term (current) use of aspirin; Z86.74 Personal history of sudden cardiac arrest; Z79.01 Long term (current) use of anticoagulants; I25.2 Old myocardial infarction
CPT/HCPCS: 36415; 36600; 71045; 80048; 80053; 81001; 82805; 83735; 83880; 84100; 84443; 84484; 85025; 85610; 87086; 93005; 93308; 93970; 94618; 94640; 94760; 96374; J0696; J1815; J2920; J7042; 97110-GP; 97535-GO; 99285-25; G0378; J7613; J7626